=== PATIENT | female | born 1945 | race Caucasian/White ===

== ENCOUNTER → 2017-11-12 | Outpatient (CLI) | payer MEDICARE ==
[2017-11-12 10:11] LABS: ALT 26 U/L (9-52); AST 21 U/L (14-36); Alkaline Phosphatase 48 U/L (38-126); Anion Gap 11 mmol/L; Blood Urea Nitrogen 16 mg/dL (7-17); Calcium 9.3 mg/dL (8.4-10.2); Carbon Dioxide 28 mmol/L (22-30); Chloride 103 mmol/L (98-107); Cholesterol 189 mg/dL (<200); Glucose 141 mg/dL (74-99); HDL Cholesterol 81 mg/dL (40-60); LDL Cholesterol,Calculated 84 mg/dL (0-99); Potassium 3.6 mmol/L (3.5-5.1); Sodium 142 mmol/L (137-145); Total Bilirubin 0.3 mg/dL (0.2-1.3); Total Protein 6.6 g/dL (6.3-8.2); Triglycerides 119 mg/dL (<150)
[2017-11-12 19:30] LABS: Hemoglobin A1C 7.6 % (4.0-6.0)
== END | disposition home or self-care (01) ==
LOC: LABWHC1 09:31
PROVIDERS: ATTEND Internal Medicine Endocrinology, Diabetes & Metabolism
DX: E11.65 Type 2 diabetes mellitus with hyperglycemia (principal); E89.0 Postprocedural hypothyroidism
CPT/HCPCS: 36415; 80053; 80061; 82043; 82570; 83036; 84443

== ENCOUNTER → 2017-12-29 | Outpatient (CLI) | payer MEDICARE ==
--- NOTE | 2018-01-03 12:10 | MM ---
Reason for exam: screening (asymptomatic). Last mammogram was performed 4 years and 2 months ago. History: Patient is postmenopausal. Took estrogen for 3 years 7 months beginning at age 50. Taking unspecified hormones for 6 months beginning at age 61. Physical Findings: A clinical breast exam by your physician is recommended on an annual basis and results should be correlated with mammographic findings. MG 3D Screening Mammo W/Cad Bilateral CC and MLO view(s) were taken. Prior study comparison: November 06, 2013, bilateral MG screening mammo w CAD. December 02, 2011, bilateral digital screening mammo w/CAD. The breast tissue is heterogeneously dense. This may lower the sensitivity of mammography. There is no discrete abnormality. No significant changes when compared with prior studies. ASSESSMENT: Negative, BI-RAD 1 RECOMMENDATION: Routine screening mammogram of both breasts in 1 year.
== END | disposition home or self-care (01) ==
LOC: RADMAMWWP 14:47
PROVIDERS: ATTEND Internal Medicine Critical Care Medicine
DX: Z12.31 Encounter for screening mammogram for malignant neoplasm of breast (principal)
CPT/HCPCS: 77063; 77067

== ENCOUNTER → 2018-12-30 | Outpatient (CLI) | payer MEDICARE ==
--- NOTE | 2019-01-03 09:27 | MM ---
Reason for exam: screening (asymptomatic). Last mammogram was performed 1 year ago. History: Patient is postmenopausal. Took estrogen for 3 years 7 months beginning at age 50. Taking unspecified hormones for 6 months beginning at age 61. Physical Findings: A clinical breast exam by your physician is recommended on an annual basis and results should be correlated with mammographic findings. MG 3D Screening Mammo W/Cad Bilateral CC and MLO view(s) were taken. Prior study comparison: December 29, 2017, bilateral MG 3d screening mammo w/cad. November 06, 2013, bilateral MG screening mammo w CAD. There are scattered fibroglandular densities. No significant changes when compared with prior studies. ASSESSMENT: Negative, BI-RAD 1 RECOMMENDATION: Routine screening mammogram of both breasts in 1 year.
== END | disposition home or self-care (01) ==
LOC: RADMAMWWP 13:18
PROVIDERS: ATTEND Internal Medicine Critical Care Medicine
DX: Z12.31 Encounter for screening mammogram for malignant neoplasm of breast (principal)
CPT/HCPCS: 77063; 77067

== ENCOUNTER → 2019-07-05 | Outpatient (CLI) | payer MEDICARE ==
[2019-07-05 15:57] LABS: African American GFR (CKD) 85.4 (60.0-200.0); Albumin 4.1 g/dL (3.80-4.90); Albumin/Globulin Ratio 1.86 (1.60-3.17); Anion Gap 6.9 mmol/L (4.00-12.00); BUN/Creat Ratio 23.75 Ratio (12.00-20.00); Calcium 9.5 mg/dL (8.7-10.3); Carbon Dioxide 29.1 mmol/L (21.6-31.8); Chol/HDL Ratio 2.71; Globulin 2.2 g/dL (1.6-3.3); LDL Cholesterol,Calculated 97.4 mg/dL (0.0-131.0); Non-African American GFR(CKD) 73.7 (60.0-200.0); Potassium 3.9 mmol/L (3.5-5.5); Total Bilirubin 0.3 mg/dL (0.2-1.2); Total Protein 6.3 g/dL (6.2-8.2); VLDL Calculation 18.6 mg/dL (5.00-40.00)
[2019-07-05 18:12] LABS: Hemoglobin A1C 8.7 % (4.0-6.0)
[2019-07-05 18:50] LABS: Urine Creatinine 79.7 mg/dL
== END ==
LOC: LABWHC1 11:35
PROVIDERS: ATTEND Internal Medicine Endocrinology, Diabetes & Metabolism
DX: E11.65 Type 2 diabetes mellitus with hyperglycemia (principal)
CPT/HCPCS: 36415; 80053; 80061; 82043; 82570; 83036; 84443

== ENCOUNTER 2019-07-17 13:21 | Inpatient (IN) | payer MEDICARE ==
[2019-07-17] MEDS: HEPARIN SOD,PORK IN 0.45% NACL 25,000 UNIT in 0.45% NACL 1 250ML.BAG IV SCH (15:30)
[2019-07-17] MEDS ORDERED: NITROGLYCERIN SL TABS 0.4 MG TAB SUBLINGUAL PRN (16:32)
[2019-07-17] MEDS ORDERED: HEPARIN SODIUM,PORCINE 5,000 UNIT/ML 1 ML VIAL IV PRN (16:36)
[2019-07-17 17:04] LABS: Glucose,Whole Blood 212 mg/dL (75-99)
[2019-07-17] MEDS ORDERED: HEPARIN SOD,PORK IN 0.45% NACL 25,000 UNIT in 0.45% NACL 1 250ML.BAG IV SCH (17:20)
[2019-07-17] MEDS: INSULIN ASPART (NovoLOG) 100 UNIT/ML VIAL SQ SCH ×2 (17:27→21:29)
[2019-07-17 18:29] LABS: INR 0.9 (<1.2); Partial Thromboplastin Time 51.1 sec (22.0-30.0); Prothrombin Time 9.8 sec (9.0-12.0)
[2019-07-17 21:05] LABS: Glucose,Whole Blood 230 mg/dL (75-99)
[2019-07-17] MEDS: INSULIN DETEMIR (LEVEMIR) 100 UNIT/ML SYR SQ SCH (21:29)
[2019-07-17] MEDS: METOPROLOL TARTRATE 25 MG TAB PO SCH (21:29)
[2019-07-17] MEDS: ATORVASTATIN 40 MG TAB PO SCH (21:29)
[2019-07-17] MEDS: MUPIROCIN 2% OINT 22 GM TUBE NASAL SCH (21:30)
[2019-07-18 06:25] LABS: Glucose,Whole Blood 140 mg/dL (75-99)
[2019-07-18] MEDS: INSULIN ASPART (NovoLOG) 100 UNIT/ML VIAL SQ SCH ×4 (06:44→21:23)
[2019-07-18] MEDS: GLIMEPIRIDE 2 MG TAB PO SCH (06:44)
[2019-07-18] MEDS: LEVOTHYROXINE 100 MCG TAB PO SCH (06:44)
[2019-07-18] MEDS: PANTOPRAZOLE 40 MG TABLET PO SCH (06:44)
--- NOTE | 2019-07-18 06:54 | P.HPIM ---
History of Present Illness Pema Portillo 73 y.o.femalewho presented to [facility] on 07/14 with complaint of chest tightness and pain, 7 out of 10 in severity which is been ongoing for the last 5 to 6 weeks. With tightness to her left arm. Serial cardiac enzymes elevated, trending up to 0.353. EKG showing sinus rhythm no ST depression, noQ wave. Chest x-ray no acute process. proBNP 2354. Magnesium critically low at 0.9, replacement given. CBC unremarkable. Patient was started on aspirin,placed on IV heparin, Nitropaste was applied. Vital signs stable. Patient underwent cardiac catheterization on 07/17/2019which showed significant 3 vesseldisease including proximal LAD which is 95% occluded, and midLADlesion also 95% occluded. RCA shows mid lesion of 70 to 80% which is heavily calcified distally to PDA branch.recommendation includes coronary bypass surgery with [place] to LAD.Patient was transferred to [facility] with consult for cardiothoracic surgery, IV heparin will be resumed. Review of Systems CONSTITUTIONAL: No fever, no malaise, no fatigue. HEENT: No recent visual problems or hearing problems. Denied any sore throat. CARDIOVASCULAR: No orthopnea, PND, no palpitations, no syncope. PULMONARY: No shortness of breath, no cough, no hemoptysis. GASTROINTESTINAL: No diarrhea, no nausea, no vomiting, no abdominal pain. Normoactive bowel sounds. NEUROLOGICAL: No headaches, no weakness, no numbness. HEMATOLOGICAL: Denies any bleeding or petechiae. GENITOURINARY: Denies any burning micturition, frequency, or urgency. MUSCULOSKELETAL/RHEUMATOLOGICAL: Denies any joint pain, swelling, or any muscle pain. ENDOCRINE: Denies any polyuria or polydipsia. Past Medical History Past Medical History: Coronary Artery Disease (CAD), Chest Pain / Angina, Diabetes Mellitus, GERD/Reflux, Hyperlipidemia, Hypertension, Osteoarthritis (OA), Thyroid Disorder Additional Past Medical History / Comment(s): diverticulitis, IBS, back fracture, herniated discs, bronchitis History of Any Multi-Drug Resistant Organisms: None Reported Past Surgical History: Cholecystectomy, Orthopedic Surgery Additional Past Surgical History / Comment(s): right hip replacement, rotator cuff, left knee replacement, thyroidectomy, bladder suspension Past Anesthesia/Blood Transfusion Reactions: No Reported Reaction Additional Past Anesthesia/Blood Transfusion Reaction / Comment(s): "slow coming out of it" Past Psychological History: Anxiety, Depression Smoking Status: Former smoker - Past Family History Father Family Medical History: Diabetes Mellitus, Myocardial Infarction ([place]) Additional Family Medical History / Comment(s): heart disease Mother Family Medical History: Myocardial Infarction ([place]) Additional Family Medical History / Comment(s): heart disease Medications and Allergies Home Medications Medication Instructions Recorded Confirmed Type Dicyclomine [Bentyl] 10 mg PO AC-TID 07/17/19 07/17/19 History Insulin NPH Human Isophane 13 units SQ AC-BID 07/17/19 07/17/19 History [NovoLIN N] Insulin NPH Human Isophane See Protocol SQ AC-BID 07/17/19 07/17/19 History [NovoLIN N] Levothyroxine Sodium [Synthroid] 100 mcg PO DAILY 07/17/19 07/17/19 History Lisinopril-Hctz 20-25 mg 1 tab PO DAILY 07/17/19 07/17/19 History [Zestoretic 20-25] Metoprolol Tartrate [Lopressor] 25 mg PO BID 07/17/19 07/17/19 History Omeprazole 20 mg PO DAILY 07/17/19 07/17/19 History Pravastatin Sodium [Pravachol] 80 mg PO DAILY 07/17/19 07/17/19 History Temazepam [Restoril] 15 mg PO HS 07/17/19 07/17/19 History amLODIPine [Norvasc] 5 mg PO DAILY 07/17/19 07/17/19 History Allergies Allergy/AdvReac Type Severity Reaction Status Date / Time No Known Allergies Allergy Verified 07/17/19 15:57 Physical Exam Vitals: Vital Signs Temp Pulse Resp BP Pulse Ox 07/18/19 04:00 98.0 F 70 18 146/76 97 07/18/19 00:00 97.9 F 67 17 144/63 98 07/17/19 20:00 97.7 F 69 18 132/76 96 07/17/19 15:30 97.9 F 65 20 193/82 97 Intake and Output 07/17/19 07/17/19 07/18/19 14:59 22:59 06:59 Intake Total 54 Balance 54 Intake: Intake, IV Titration 54 Amount Heparin Sod,Pork in 0.45% 54 NaCl 25,000 unit In 0.45 % NaCl 1 250ml.bag @ 9 mls/hr IV .Q24H [facility] Rx#: [id number] Other: Voiding Method Toilet Toilet # Voids 1 1 # Bowel Movements 1 Weight 73.936 kg 74.5 kg GENERAL: The patient is alert and oriented x3, not in any acute distress. Well developed, well nourished. HEENT: Pupils are round and equally reacting to light. EOMI. No scleral icterus. No conjunctival pallor. Normocephalic, atraumatic. No pharyngeal erythema. No thyromegaly. CARDIOVASCULAR: S1 and S2 present. No murmurs, rubs, or gallops. PULMONARY: Chest is clear to auscultation, no wheezing or crackles. ABDOMEN: Soft, nontender, nondistended, normoactive bowel sounds. No palpable organomegaly. MUSCULOSKELETAL: No joint swelling or deformity. EXTREMITIES: No cyanosis, clubbing, or pedal edema. NEUROLOGICAL: Gross neurological examination did not reveal any focal deficits. SKIN: No rashes. No petechiae Results Labs: Abnormal Lab Results - Last 24 Hours (Table) 07/17/19 07/17/19 07/17/19 Range/Units 17:02 17:57 21:04 APTT 51.1 H (22.0-30.0) sec POC Glucose (mg/dL) 212 H 230 H (75-99) mg/dL 07/17/19 07/18/19 Range/Units 22:18 06:11 APTT 47.2 H (22.0-30.0) sec POC Glucose (mg/dL) 140 H (75-99) mg/dL Microbiology - Last 24 Hours (Table) 07/17/19 17:35 Nasal Screen MRSA/MSSA - Preliminary Nasal Swab Thrombosis Risk Factor Assmnt - Choose All That Apply Any of the Below Risk Factors Present?: Yes Each Factor Represents 1 point: Obesity (BMI >25) Other Risk Factors: Yes Each Risk Factor Represents 2 Points: Age 61-74 years Thrombosis Risk Factor Assessment Total Risk Factor Score: 3 Thrombosis Risk Factor Assessment Level: Moderate Risk Assessment and Plan Assessment: non-STEMI, status post cardiac cath showing triple vessel coronary artery disease Hypomagnesemia Hypertension Hyperlipidemia Diabetes mellitus Hypothyroidism Gastroesophageal reflux disease Irritable bowel syndrome Anxiety Arthritis Plan: This is a pleasant 73 years old female who presents for severe triple vessel coronary artery disease and she's been evaluated for coronary artery bypass surgery, continue with aspirin, statin, insulin, losartan, metoprolol and heparin drip by side door man recommendation, follow-up recommendation by cardiology and cardiothoracic surgery teams Labs and medication were reviewed.. Continue same treatment. Continue with symptomatic treatment. Resume home medication. Monitor lytes and vitals. DVT and GI prophylaxis. Further recommendations of the clinical course of the patient DVT prophylaxis: heparin GI Prophylaxis: Protonix Prognosis is guarded
[2019-07-18 07:11] LABS: Basophils % (A) 0 %; Eosinophils # (A) 0.1 k/uL (0-0.7); Eosinophils % (A) 2 %; HGB 12.2 gm/dL (11.4-16.0); Lymphocytes % (A) 32 %; MCH 27.9 pg (25.0-35.0); MCV 87.2 fL (80.0-100.0); Mean Platelet Volume 8.1; Monocytes # (A) 0.4 k/uL (0-1.0); Monocytes % (A) 5 %; Neutrophils # (A) 3.7 k/uL (1.3-7.7); Neutrophils % (A) 58 %; Platelet Count 188 k/uL (150-450); RBC 4.36 m/uL (3.80-5.40); WBC 6.4 k/uL (3.8-10.6)
[2019-07-18 07:51] LABS: ALT 16 U/L (4-34); AST 24 U/L (14-36); African American GFR (CKD) >90 (>60 ml/min/1.73 sqM); Albumin 3.1 g/dL (3.5-5.0); Alkaline Phosphatase 47 U/L (38-126); Anion Gap 6 mmol/L; Bilirubin,Unconjugated 0.4 mg/dL (0.0-1.1); Blood Urea Nitrogen 18 mg/dL (7-17); Calcium 8.7 mg/dL (8.4-10.2); Carbon Dioxide 23 mmol/L (22-30); Chloride 109 mmol/L (98-107); Glucose 133 mg/dL (74-99); Magnesium 1.6 mg/dL (1.6-2.3); Non-African American GFR(CKD) 87 (>60 ml/min/1.73 sqM); Potassium 4.2 mmol/L (3.5-5.1); Sodium 138 mmol/L (137-145); Total Bilirubin 0.3 mg/dL (0.2-1.3); Total Protein 5.8 g/dL (6.3-8.2)
[2019-07-18] MEDS: CHOLECALCIFEROL 400 UNIT TAB PO SCH (08:11)
[2019-07-18] MEDS: METOPROLOL TARTRATE 25 MG TAB PO SCH ×2 (08:11→21:22)
[2019-07-18] MEDS: ASPIRIN 81 MG PO SCH (08:11)
[2019-07-18] MEDS: LOSARTAN 50 MG TAB PO SCH (08:11)
[2019-07-18 08:12] LABS: Bilirubin, Delta -0.1 mg/dL (0.0-0.2)
[2019-07-18] MEDS: MUPIROCIN 2% OINT 22 GM TUBE NASAL SCH ×2 (08:40→21:22)
[2019-07-18] MEDS ORDERED: amLODIPine 5 MG TAB PO SCH (09:00)
[2019-07-18 09:13] LABS: T4, Free (Free Thyroxine) 1.58 ng/dL (0.78-2.19)
[2019-07-18 10:13] LABS: Appearance,Urine Clear (Clear); Bilirubin,Urine Negative (Negative); Blood,Urine Negative (Negative); Color,Urine Yellow; Glucose,Urine (UA) Negative (Negative); Ketones,Urine Negative (Negative); Leukocyte Esterase,Urine Negative (Negative); Nitrite,Urine Negative (Negative); Protein,Urine Negative (Negative); Specific Gravity,Urine 1.014 (1.001-1.035); Urobilinogen,Urine <2.0 mg/dL (<2.0)
[2019-07-18 11:42] LABS: Glucose,Whole Blood 208 mg/dL (75-99)
--- NOTE | 2019-07-18 12:54 | P.PN ---
Subjective Progress Note Date: 07/18/19 This is a 73-year-old female who presented to [facility] with chest discomfort, she ruled in for non-Q-wave myocardial infarction. Underwent a cardiac catheterization which revealed triple vessel coronary artery disease including a proximal LAD 95% occluded, mid LAD 95%, RCA mid l esion of 70-80% which is heavily calcified distally to PDA branch. Patient was recommended to undergo coronary artery bypass surgery. Patient was transferred to [facility], cardiothoracic consultation was requested. Patient does have history of hypertension, diabetes, hyperlipidemia, hypothyroidism. The patient was seen and examined this morning, feels well, denies any chest discomfort or breathing problems. She's been up ambulating without any difficulty. Blood pressure 132/70 with a heart rate 60, 96% on room air. White blood cell count 6.4, hemoglobin 12.2, platelet count 188. Sodium 138, potassium 4.2, BUN 18, creatinine 0.6, magnesium 1.6. Objective - Vital Signs Vital signs: Vital Signs Temp 97.8 F 07/18/19 12:00 Pulse 65 07/18/19 12:00 Resp 18 07/18/19 12:00 BP 132/72 07/18/19 12:00 Pulse Ox 96 07/18/19 12:00 Intake & Output 07/17/19 07/18/19 07/18/19 18:59 06:59 18:59 Intake Total 54 120 Balance 54 120 Weight 73.936 kg 74.5 kg Intake: Intake, IV Titration 54 Amount Heparin Sod,Pork in 0.45% 54 NaCl 25,000 unit In 0.45 % NaCl 1 250ml.bag @ 9 mls/hr IV .Q24H [facility] Rx#: [id number] Oral 120 Other: Voiding Method Toilet Toilet Toilet # Voids 1 1 2 # Bowel Movements 1 0 - Exam PHYSICAL EXAMINATION: GENERAL: 73-year-old female in no acute distress at the time of my examination HEENT: Head is atraumatic, normocephalic. Pupils equal, round. Sclera anicteric. Conjunctiva are clear. Mucous membranes of the mouth are moist. Neck is supple. There is no elevated jugular venous pressure. No carotid bruit is heard. HEART EXAMINATION: Heart S1, S2 normal. No murmur or gallop heard. CHEST EXAMINATION: Lungs are clear to auscultation and precussion. No chest wall tenderness is noted on palpation or with deep breathing. ABDOMEN: Soft, nontender. Bowel sounds are heard. No organomegaly noted. EXTREMITIES: 2+ peripheral pulses with no evidence of peripheral edema and no calf tenderness noted. NEUROLOGIC patient is awake, alert and oriented 3 . . - Labs CBC & Chem 7: 07/18/19 06:12 07/18/19 06:12 Labs: Abnormal Lab Results - Last 24 Hours (Table) 07/17/19 07/17/19 07/17/19 Range/Units 17:02 17:57 21:04 APTT 51.1 H (22.0-30.0) sec Chloride (98-107) mmol/L BUN (7-17) mg/dL Glucose (74-99) mg/dL POC Glucose (mg/dL) 212 H 230 H (75-99) mg/dL Delta Bilirubin (0.0-0.2) mg/dL Total Protein (6.3-8.2) g/dL Albumin (3.5-5.0) g/dL TSH (0.465-4.680) mIU/L 07/17/19 07/18/19 07/18/19 Range/Units 22:18 06:11 06:12 APTT 47.2 H (22.0-30.0) sec Chloride 109 H (98-107) mmol/L BUN 18 H (7-17) mg/dL Glucose 133 H (74-99) mg/dL POC Glucose (mg/dL) 140 H (75-99) mg/dL Delta Bilirubin -0.1 L (0.0-0.2) mg/dL Total Protein 5.8 L (6.3-8.2) g/dL Albumin 3.1 L (3.5-5.0) g/dL TSH 0.360 L (0.465-4.680) mIU/L 07/18/19 Range/Units 11:34 APTT (22.0-30.0) sec Chloride (98-107) mmol/L BUN (7-17) mg/dL Glucose (74-99) mg/dL POC Glucose (mg/dL) 208 H (75-99) mg/dL Delta Bilirubin (0.0-0.2) mg/dL Total Protein (6.3-8.2) g/dL Albumin (3.5-5.0) g/dL TSH (0.465-4.680) mIU/L Microbiology - Last 24 Hours (Table) 07/17/19 17:35 Nasal Screen MRSA/MSSA - Preliminary Nasal Swab Assessment and Plan Plan: Assessment and plan #1 non-Q-wave myocardial infarction, status post cardiac catheterization which revealed triple vessel coronary artery disease #2 hypertension #3 diabetes #4 hyperlipidemia #5 hypothyroidism Plan Patient has been seen by cardiothoracic surgery, the plan is to proceed with coronary artery bypass grafting surgery on . We will continue to follow along with you. DNP note has been reviewed, I agree with a documented findings and plan of care. Patient was seen and examined.
--- NOTE | 2019-07-18 13:14 | P.GSCN ---
History of Present Illness Consult date: 07/18/19 Reason for Consult: Coronary artery disease Requesting physician: Kayden Truong History of present illness: This is a 73-year-old female patient who follows on an outpatient basis with Dr. Sheppard as her primary care physician and Dr. BALDO Truong as her health center assistant. She has a previous medical history of hypertension, hyperlipidemia, insulin dependent diabetes mellitus, hypothyroid, anxiety, IBS, diverticulosis, anxiety, GERD, multiple orthopedic surgeries, previous tobacco dependence although she was a social smoker and not a daily smoker, and family history of coronary artery disease. Apparently she has had intermittent chest pain for the last 6 weeks with radiation to her arms and jaw. She presented to [facility] for treatment evaluation. EKG was completed demonstrating sinus rhythm with T-wave inversions in leads V1 through V3. Initial troponin was 0.06 going up to 0.22. BNP was 2354. She was initiated on an heparin drip and taken for cardiac catheterization yesterday which demonstrated severe coronary artery disease with proximal LAD 95% occlusion, mid LAD also 95% occlusion, and mid RCA lesion 70-80%. Due to these findings the patient was transferred to [facility] with consultation placed to Dr. Ruiz from cardiothoracic surgery. Review of Systems - Cardiovascular Reports as per HPI, Reports chest pain Past Medical History Past Medical History: Coronary Artery Disease (CAD), Chest Pain / Angina, Diabetes Mellitus, GERD/Reflux, Hyperlipidemia, Hypertension, Osteoarthritis (OA), Thyroid Disorder Additional Past Medical History / Comment(s): diverticulitis, IBS, back fracture, herniated discs, bronchitis History of Any Multi-Drug Resistant Organisms: None Reported Past Surgical History: Cholecystectomy, Hysterectomy, Orthopedic Surgery, Tonsillectomy Additional Past Surgical History / Comment(s): right hip replacement, rotator cuff, left knee replacement, thyroidectomy, bladder suspension, EGD, colonoscopy Past Anesthesia/Blood Transfusion Reactions: No Reported Reaction Additional Past Anesthesia/Blood Transfusion Reaction / Comm: "slow coming out of it" Past Psychological History: Anxiety, Depression Smoking Status: Former smoker Past Alcohol Use History: None Reported Past Drug Use History: None Reported - Past Family History Father Family Medical History: Diabetes Mellitus, Myocardial Infarction ([place]) Additional Family Medical History / Comment(s): heart disease Mother Family Medical History: Myocardial Infarction ([place]) Additional Family Medical History / Comment(s): heart disease Medications and Allergies Home Medications Medication Instructions Recorded Confirmed Type Dicyclomine [Bentyl] 10 mg PO AC-TID 07/17/19 07/17/19 History Insulin NPH Human Isophane 13 units SQ AC-BID 07/17/19 07/17/19 History [NovoLIN N] Insulin NPH Human Isophane See Protocol SQ AC-BID 07/17/19 07/17/19 History [NovoLIN N] Levothyroxine Sodium [Synthroid] 100 mcg PO DAILY 07/17/19 07/17/19 History Lisinopril-Hctz 20-25 mg 1 tab PO DAILY 07/17/19 07/17/19 History [Zestoretic 20-25] Metoprolol Tartrate [Lopressor] 25 mg PO BID 07/17/19 07/17/19 History Omeprazole 20 mg PO DAILY 07/17/19 07/17/19 History Pravastatin Sodium [Pravachol] 80 mg PO DAILY 07/17/19 07/17/19 History Temazepam [Restoril] 15 mg PO HS 07/17/19 07/17/19 History amLODIPine [Norvasc] 5 mg PO DAILY 07/17/19 07/17/19 History Allergies Allergy/AdvReac Type Severity Reaction Status Date / Time No Known Allergies Allergy Verified 07/17/19 15:57 Surgical - Exam Vital Signs Temp Pulse Resp BP Pulse Ox 97.9 F 65 20 193/82 97 07/17/19 15:30 07/17/19 15:30 07/17/19 15:30 07/17/19 15:30 07/17/19 15:30 - General well developed, well nourished, no distress, no pain, obese - Eyes PERRL, normal ocular movement - ENT no hearing loss - Neck no masses, no bruits, trachea midline - Respiratory Lungs sounds diminished bilaterally. Respirations even, nonlabored. Currently on room air with oxygen saturation 97%. Able to achieve 1500 mL on her incentive spirometry. No clubbing or cyanosis present. - Cardiovascular S1, S2 present. Regular rate and rhythm, sinus rhythm on telemetry. Palpable peripheral pulses bilaterally. No edema present. No calf pain or tenderness noted. - Abdomen Abdomen: soft, non tender, bowel sounds - Genitourinary Deferred - Rectum Deferred - Integumentary no rash, no growths, no abnormal pigmentation - Neurologic normal coordination, normal sensation - Musculoskeletal normal posture - Psychiatric oriented to time, oriented to person, oriented to place, speech is normal, memory intact Results - Labs 07/18/19 06:12 07/18/19 06:12 Abnormal Lab Results - Last 24 Hours (Table) 07/17/19 07/17/19 07/17/19 Range/Units 17:02 17:57 21:04 APTT 51.1 H (22.0-30.0) sec Chloride (98-107) mmol/L BUN (7-17) mg/dL Glucose (74-99) mg/dL POC Glucose (mg/dL) 212 H 230 H (75-99) mg/dL Delta Bilirubin (0.0-0.2) mg/dL Total Protein (6.3-8.2) g/dL Albumin (3.5-5.0) g/dL TSH (0.465-4.680) mIU/L 07/17/19 07/18/19 07/18/19 Range/Units 22:18 06:11 06:12 APTT 47.2 H (22.0-30.0) sec Chloride 109 H (98-107) mmol/L BUN 18 H (7-17) mg/dL Glucose 133 H (74-99) mg/dL POC Glucose (mg/dL) 140 H (75-99) mg/dL Delta Bilirubin -0.1 L (0.0-0.2) mg/dL Total Protein 5.8 L (6.3-8.2) g/dL Albumin 3.1 L (3.5-5.0) g/dL TSH 0.360 L (0.465-4.680) mIU/L 07/18/19 Range/Units 11:34 APTT (22.0-30.0) sec Chloride (98-107) mmol/L BUN (7-17) mg/dL Glucose (74-99) mg/dL POC Glucose (mg/dL) 208 H (75-99) mg/dL Delta Bilirubin (0.0-0.2) mg/dL Total Protein (6.3-8.2) g/dL Albumin (3.5-5.0) g/dL TSH (0.465-4.680) mIU/L Microbiology - Last 24 Hours (Table) 07/17/19 17:35 Nasal Screen MRSA/MSSA - Preliminary Nasal Swab Diabetes panel 07/18/19 Range/Units 06:12 Sodium 138 (137-145) mmol/L Potassium 4.2 (3.5-5.1) mmol/L Chloride 109 H (98-107) mmol/L Carbon Dioxide 23 (22-30) mmol/L BUN 18 H (7-17) mg/dL Creatinine 0.69 (0.52-1.04) mg/dL Glucose 133 H (74-99) mg/dL Calcium 8.7 (8.4-10.2) mg/dL AST 24 (14-36) U/L ALT 16 (4-34) U/L Alkaline Phosphatase 47 (38-126) U/L Total Protein 5.8 L (6.3-8.2) g/dL Albumin 3.1 L (3.5-5.0) g/dL Thyroid panel 07/18/19 Range/Units 06:12 TSH 0.360 L (0.465-4.680) mIU/L Calcium panel 07/18/19 Range/Units 06:12 Calcium 8.7 (8.4-10.2) mg/dL Albumin 3.1 L (3.5-5.0) g/dL Pituitary panel 07/18/19 Range/Units 06:12 Sodium 138 (137-145) mmol/L Potassium 4.2 (3.5-5.1) mmol/L Chloride 109 H (98-107) mmol/L Carbon Dioxide 23 (22-30) mmol/L BUN 18 H (7-17) mg/dL Creatinine 0.69 (0.52-1.04) mg/dL Glucose 133 H (74-99) mg/dL Calcium 8.7 (8.4-10.2) mg/dL TSH 0.360 L (0.465-4.680) mIU/L Adrenal panel 07/18/19 Range/Units 06:12 Sodium 138 (137-145) mmol/L Potassium 4.2 (3.5-5.1) mmol/L Chloride 109 H (98-107) mmol/L Carbon Dioxide 23 (22-30) mmol/L BUN 18 H (7-17) mg/dL Creatinine 0.69 (0.52-1.04) mg/dL Glucose 133 H (74-99) mg/dL Calcium 8.7 (8.4-10.2) mg/dL Total Bilirubin 0.3 (0.2-1.3) mg/dL AST 24 (14-36) U/L ALT 16 (4-34) U/L Alkaline Phosphatase 47 (38-126) U/L Total Protein 5.8 L (6.3-8.2) g/dL Albumin 3.1 L (3.5-5.0) g/dL - Imaging Chest x-ray: pending EKG: pending Additional studies: Heart catheterization films reviewed with Dr. Ruiz Assessment and Plan Assessment: 1. Severe coronary artery disease 2. Hypertension 3. Hyperlipidemia 4. Hypothyroidism 5. Insulin dependent diabetes mellitus 6. Anxiety 7. IBS 8. Diverticulosis 9. Anxiety/depression 10. GERD 11. Previous social smoker 12. Family history of heart disease Plan: The patient was seen and examined at the bedside with Dr. Ruiz yesterday as well as again this morning. Charts as diagnostics were reviewed. We did upload the heart catheterization films into our system and reviewed them. We have the patient coronary artery bypass graft surgery. The usual. Upper course was discussed in detail the patient and her family, all risks and benefits were reviewed, and the patient did consent to surgery. We initiated preoperative testing. Recommend continuing aspirin, statin, beta gonzález therapy. Continue IV heparin to be shut off 2 hours prior to surgery. We will complete a 5 m walk test and calculated STS risk score and discussed this with the patient and her family. At this time her plan is for coronary artery bypass surgery with left internal mammary artery and endoscopic vein harvesting by Dr. Blanchard on , 07/20/2019. Continued medical treatment of other comorbidities per primary care service. Thank you Dr. Truong for this consult. We look forward to working with you in the care of your patient. Time with Patient: Greater than 30
[2019-07-18 15:00] LABS: Hemoglobin A1C 8.7 % (4.0-6.0)
--- NOTE | 2019-07-18 16:03 | XR ---
EXAMINATION TYPE: XR chest 2V DATE OF EXAM: 07/18/2019 COMPARISON: None INDICATION: Preop CABG TECHNIQUE: Frontal and lateral views of the chest are obtained. FINDINGS: The heart size is normal. The pulmonary vasculature is normal. The lungs are clear. There is some focal eventration of the right diaphragm. IMPRESSION: 1. No acute pulmonary process.
[2019-07-18 16:07] LABS: Hepatitis A Antibody IgM Non-Reactive (Non-Reactive); Hepatitis B Core IgM Non-Reactive (Non-Reactive); Hepatitis B Surface Antigen Non-Reactive (Non-Reactive); Hepatitis C IgG Antibody Non-Reactive (Non-Reactive)
[2019-07-18 16:37] LABS: Glucose,Whole Blood 269 mg/dL (75-99)
[2019-07-18] MEDS: HEPARIN SOD,PORK IN 0.45% NACL 25,000 UNIT in 0.45% NACL 1 250ML.BAG IV SCH (16:49)
--- NOTE | 2019-07-18 18:01 | ECHOF ---
Referral Reason:eval valves, EF for cabg MEASUREMENTS -------- HEIGHT: 157.5 cm WEIGHT: 74.4 kg BP: 146/76 RVIDd: 1.6 cm (< 3.3) IVSd: 1.4 cm (0.6 - 1.1) LVIDd: 3.3 cm (3.9 - 5.3) LVPWd: 1.5 cm (0.6 - 1.1) IVSs: 1.9 cm LVIDs: 2.2 cm LVPWs: 1.7 cm LAESV Index (A-L): 36.51 ml/m Ao Diam: 2.8 cm (2.0 - 3.7) AV Cusp: 1.6 cm (1.5 - 2.6) LA Diam: 3.6 cm (2.7 - 3.8) MV EXCURSION: 12.755 mm (> 18.000) MV EF SLOPE: 61 mm/s (70 - 150) EPSS: 0.6 cm MV E Nik: 1.00 m/s MV DecT: 204 ms MV A Nik: 0.78 m/s MV E/A Ratio: 1.28 RAP: 5.00 mmHg RVSP: 11.31 mmHg FINDINGS -------- Sinus rhythm. This was a technically good study. The left ventricular size is normal. There is moderate concentric left ventricular hypertrophy. O verall left ventricular systolic function is normal with, an EF between 55 - 60 %. Increased LAP Gr hammad 2 Diastolic Dysfunction. The right ventricle is normal in size. LA is moderately dilated 34-39 ml/m2 The right atrial size is normal. The aortic valve is trileaflet and appears structurally normal. The mitral valve is normal. Mild mitral regurgitation is present. The tricuspid valve appears structurally normal. Mild tricuspid regurgitation present. Right vent ricular systolic pressure is normal at < 35 mmHg. There is no pulmonic regurgitation present. The aortic root size is normal. Normal inferior vena cava with normal inspiratory collapse consistent with estimated right atrial pre ssure of 5 mmHg. There is no pericardial effusion. CONCLUSIONS -------- 1. Sinus rhythm. 2. This was a technically good study. 3. The left ventricular size is normal. 4. There is moderate concentric left ventricular hypertrophy. 5. Overall left ventricular systolic function is normal with, an EF between 55 - 60 %. 6. Increased LAP Grade 2 Diastolic Dysfunction. 7. The right ventricle is normal in size. 8. LA is moderately dilated 34-39 ml/m2 9. The right atrial size is normal. 10. The aortic valve is trileaflet and appears structurally normal. 11. The mitral valve is normal. 12. Mild mitral regurgitation is present. 13. The tricuspid valve appears structurally normal. 14. Mild tricuspid regurgitation present. 15. Right ventricular systolic pressure is normal at < 35 mmHg. 16. There is no pulmonic regurgitation present. 17. The aortic root size is normal. 18. Normal inferior vena cava with normal inspiratory collapse consistent with estimated right atrial pressure of 5 mmHg. 19. There is no pericardial effusion. DENTAL ASSISTANT TEACHER: Teetee Santos RDCS
--- NOTE | 2019-07-18 19:00 | CONS ---
CONSULTATION PULMONARY/CRITICAL CARE CONSULTATION: DATE OF SERVICE: 07/18/2019 This is a 73-year-old female who presented to the [facility] on July 14 with complaints of chest tightness and pain. It was graded to be 7/10 on the severity scale. The pain apparently had been going on for about 5 or 6 weeks prior to admission. In addition, she had tightness to her left arm. Her serial cardiac enzymes were elevated, trending up to 0.353. EKG showed sinus rhythm, no ST depression, no Q- wave. Chest x-ray showed no acute process. Her N-terminal proBNP was 2354. Her magnesium was low. CBC was normal. Anyway, she was started on aspirin, placed on IV heparin, and nitro paste was applied. She went to the cardiac catheterization laboratory on July 16, which showed significant three-vessel disease, including a proximal LAD lesion which is 95% occluded and a mid LAD lesion, also 95% occluded. Her right coronary artery showed mid lesion of 70% to 80% which is heavily calcified distal to the PDA branch, and bypass grafting was recommended by the director of customer service. She was transferred over from [facility] on July 16 to [facility]. She will have surgery this , which will be July 19. Currently the patient is resting comfortably in bed. She does see Dr. Sheppard in our office as a primary care provider. It was Dr. Sheppard who actually was taking care of her over at [facility]. PAST MEDICAL HISTORY: Positive for CAD, angina pectoris, diabetes mellitus, GERD, hyperlipidemia, hypertension, DJD and hypothyroidism. She also has a history of diverticular disease, irritable bowel syndrome, lumbar fracture, herniated disc and bronchitis. SURGICAL HISTORY: Includes among other things, cholecystectomy, right hip replacement, rotator cuff surgery, left knee replacement, thyroidectomy and bladder suspension. SOCIAL HISTORY: Positive for previous tobacco use. She does not use any alcohol or illicit drugs. FAMILY HISTORY: Positive for father with diabetes mellitus and myocardial infarction and mother with a previous history of myocardial infarction. HOME MEDICATIONS: Include Bentyl, insulin, levothyroxine, lisinopril, metoprolol, omeprazole, pravastatin, Restoril and amlodipine. ALLERGIES: DENIED. REVIEW OF SYSTEMS: CONSTITUTIONAL: Negative. NEUROLOGIC: Negative. HEENT: Negative. CARDIOVASCULAR: Chest pain. PULMONARY: Negative. GI: Negative. : Negative. RHEUMATOLOGIC: Negative. IMMUNOLOGIC: Negative. ENDOCRINOLOGIC: Negative. PHYSICAL EXAMINATION: VITAL SIGNS: Current vital signs are reviewed. Temperature is 97.8, heart rate 65, respiratory rate 18, blood pressure 132/72, mean 92, room-air saturation 96%. GENERAL APPEARANCE: She appears in no acute distress. HEENT: HEENT examination is grossly unremarkable. Mucous membranes are moist. No oral lesions. NECK: Supple. Full range of motion. No adenopathy or thyromegaly. Neck veins are flat. CARDIOVASCULAR: Cardiovascular examination reveals regular rhythm and rate. S1, S2 normal. No S3, S4 or murmur. LUNGS: Lungs reveal clear breath sounds. No wheezes, rhonchi or crackles. ABDOMEN: Soft. Bowel sounds are heard. EXTREMITIES: Intact. No cyanosis, clubbing or edema. SKIN: Without rash. NEUROLOGIC: Neurologic examination is brief but nonfocal. The patient has not had a chest x-ray here. She did have labs here today. White count 6.4, hemoglobin 12.2, hematocrit 38, platelet count 188,000. PTT is 47.2. Sodium and potassium normal. Chloride 109. CO2 23. Anion gap 6. BUN and creatinine were 18 and 0.69. The rest of the labs look okay. TSH is 0.360. Urine is negative. CURRENT MEDICATIONS: Current medications are reviewed. She is currently on amlodipine, aspirin, Lipitor, vitamin D2, glimepiride, IV heparin, insulin, levothyroxine, Cozaar, metoprolol, bacitracin ointment, sublingual nitroglycerin and Protonix. ASSESSMENT: 1. Severe coronary artery disease with anticipated bypass grafting on July 19. 2. [id number]-elevation myocardial infarction. 3. Hypertension. 4. Hyperlipidemia. 5. Diabetes mellitus. 6. Hypothyroidism. 7. Gastroesophageal reflux disease. 8. Irritable bowel syndrome. 9. Anxiety. 10.Degenerative joint disease. PLAN: The patient is all set for surgery. I did look at her pulmonary function tests. She should do fine. Additional recommendations and suggestions are forthcoming. Postoperatively she will be on the ventilator. Our goal will be to be able to get her extubated within 6 hours after leaving the operating room. The patient will also be placed on updrafts at that time. We will also recommend deep breathing, coughing, clearing of secretions and hourly use of the incentive spirometer. MMODL / IJN: [id number] /
[2019-07-18 21:08] LABS: Glucose,Whole Blood 271 mg/dL (75-99)
[2019-07-18] MEDS: INSULIN DETEMIR (LEVEMIR) 100 UNIT/ML SYR SQ SCH (21:22)
[2019-07-18] MEDS: ATORVASTATIN 40 MG TAB PO SCH (21:23)
[2019-07-18] MEDS ORDERED: amLODIPine 5 MG TAB PO STA (22:45)
[2019-07-19 06:04] LABS: Basophils # (A) 0.1 k/uL (0-0.2); Basophils % (A) 1 %; Eosinophils # (A) 0.2 k/uL (0-0.7); Eosinophils % (A) 3 %; HCT 38.7 % (34.0-46.0); HGB 12.3 gm/dL (11.4-16.0); Lymphocytes # (A) 1.8 k/uL (1.0-4.8); Lymphocytes % (A) 32 %; MCH 28.2 pg (25.0-35.0); MCHC 31.7 g/dL (31.0-37.0); Mean Platelet Volume 8.5; Monocytes # (A) 0.4 k/uL (0-1.0); Monocytes % (A) 7 %; Neutrophils # (A) 3.1 k/uL (1.3-7.7); Neutrophils % (A) 55 %; Platelet Count 177 k/uL (150-450); RBC 4.35 m/uL (3.80-5.40); RDW 13.9 % (11.5-15.5); WBC 5.7 k/uL (3.8-10.6)
[2019-07-19 06:15] LABS: Glucose,Whole Blood 235 mg/dL (75-99)
[2019-07-19] MEDS: PANTOPRAZOLE 40 MG TABLET PO SCH (06:24)
[2019-07-19] MEDS: INSULIN ASPART (NovoLOG) 100 UNIT/ML VIAL SQ SCH ×4 (06:24→22:18)
[2019-07-19] MEDS: LEVOTHYROXINE 100 MCG TAB PO SCH (06:24)
[2019-07-19] MEDS: GLIMEPIRIDE 2 MG TAB PO SCH (06:24)
[2019-07-19 06:42] LABS: African American GFR (CKD) >90 (>60 ml/min/1.73 sqM); Anion Gap 2 mmol/L; Blood Urea Nitrogen 17 mg/dL (7-17); Calcium 8.8 mg/dL (8.4-10.2); Carbon Dioxide 24 mmol/L (22-30); Chloride 110 mmol/L (98-107); Glucose 255 mg/dL (74-99); Magnesium 1.4 mg/dL (1.6-2.3); Non-African American GFR(CKD) >90 (>60 ml/min/1.73 sqM); Potassium 4.5 mmol/L (3.5-5.1); Sodium 136 mmol/L (137-145)
[2019-07-19] MEDS: ASPIRIN 81 MG PO SCH (08:15)
[2019-07-19] MEDS: LOSARTAN 50 MG TAB PO SCH (08:16)
[2019-07-19] MEDS: CHOLECALCIFEROL 400 UNIT TAB PO SCH (08:16)
[2019-07-19] MEDS: MUPIROCIN 2% OINT 22 GM TUBE NASAL SCH (08:16)
[2019-07-19] MEDS: MAGNESIUM SULFATE-D5W PMX 1 GM in DEXTROSE/WATER 1 100ML.BAG IVPB SCH ×2 (08:19→12:05)
[2019-07-19] MEDS ORDERED: amLODIPine 10 MG TAB PO SCH (09:00)
--- NOTE | 2019-07-19 10:09 | P.VSCSTY ---
Greater Saphenous Vein Mapping This is bilateral lower extremity greater saphenous vein mapping. Date of service: 07/18/2019 Vein quality and ultrasound appearance: We see no endoluminal thrombus or wall changes. Vein size groin right : 9.9 x 8.8 groin left: 5.8 x 6.2 High thigh right: 3.9 x 4.1 high thigh left: 3.4 x 3.6 Mid thigh right: 3.4 x 3.9 mid thigh left: 3.7 x 3.7 Above-knee right: 3.4 x 4.1 above- knee left: 3.2 x 2.9 Below knee right: 2.9 x 3.6 below-knee left: 2.1 x 2.7 Mid calf right: 3.2 x 3.5 mid calf left: 1.9 x 2.2 Ankle right: 3.1 x 2.7 ankle left: 2.4 x 2.9 Impression: Usable greater saphenous vein through most of right leg and above the knee on the left. Right lower leg probably a bit small for use as conduit..
[2019-07-19] MEDS ORDERED: Magnesium Replacement Protocol 1 EACH MISC MISCELLANE PRN (10:13)
[2019-07-19] MEDS ORDERED: Potassium Replacement Protocol 1 EACH MISC MISCELLANE PRN (10:13)
--- NOTE | 2019-07-19 10:14 | P.PN ---
Subjective Pema Portillo 73 y.o.femalewho presented to [facility] on 07/14 with complaint of chest tightness and pain, 7 out of 10 in severity which is been ongoing for the last 5 to 6 weeks. With tightness to her left arm. Serial cardiac enzymes elevated, trending up to 0.353. EKG showing sinus rhythm no ST depression, noQ wave. Chest x-ray no acute process. proBNP 2354. Magnesium critically low at 0.9, replacement given. CBC unremarkable. Patient was started on aspirin,placed on IV heparin, Nitropaste was applied. Vital signs stable. Patient underwent cardiac catheterization on 07/17/2019which showed significant 3 vesseldisease including proximal LAD which is 95% occluded, and midLADlesion also 95% occluded. RCA shows mid lesion of 70 to 80% which is heavily calcified distally to PDA branch.recommendation includes coronary bypass surgery with [place] to LAD.Patient was transferred to [facility] with consult for cardiothoracic surgery, IV heparin will be resumed. 07/19/2019 Patient lying in bed, comfortable not in distress, no chest pain or dyspnea. She remains on heparin drip and other cardiac medication Hemodynamically stable, labs are unremarkable CBC with normal WBC, sodium 136, creatinine 0.6, glucose 271-235, magnesium low at 1.4 Discussed the case with cardiology and cardiothoracic surgery, planned for cardiac surgery on 07/19 Review of systems CONSTITUTIONAL: No fever, no malaise, no fatigue. HEENT: No recent visual problems or hearing problems. Denied any sore throat. CARDIOVASCULAR: No orthopnea, PND, no palpitations, no syncope. PULMONARY: No shortness of breath, no cough, no hemoptysis. GASTROINTESTINAL: No diarrhea, no nausea, no vomiting, no abdominal pain. Normoactive bowel sounds. NEUROLOGICAL: No headaches, no weakness, no numbness. HEMATOLOGICAL: Denies any bleeding or petechiae. GENITOURINARY: Denies any burning micturition, frequency, or urgency. MUSCULOSKELETAL/RHEUMATOLOGICAL: Denies any joint pain, swelling, or any muscle pain. ENDOCRINE: Denies any polyuria or polydipsia. Active Medications Generic Name Dose Route Start Last Admin Trade Name Freq PRN Reason Stop Dose Admin Amlodipine Besylate 10 mg 07/19/19 09:00 07/19/19 08:15 Norvasc PO 10 mg DAILY SALLY Administration Aspirin 81 mg 07/18/19 09:00 07/19/19 08:15 Aspirin PO 81 mg DAILY SALLY Administration Atorvastatin Calcium 40 mg 07/17/19 21:00 07/18/19 21:23 Lipitor PO 40 mg HS SALLY Administration Cholecalciferol 2,000 unit 07/18/19 09:00 07/19/19 08:16 Vitamin D3 PO 2,000 unit DAILY SALLY Administration Glimepiride 2 mg 07/18/19 07:30 07/19/19 06:24 Amaryl PO 2 mg W/BRKFST SALLY Administration Heparin Sodium (Porcine) 0 unit 07/17/19 16:36 Heparin IV PER PROTOCOL PRN Low PTT Protocol Heparin Sodium/Sodium Chloride 250 mls @ 8.872 mls/hr 07/17/19 16:45 07/19/19 06:23 25,000 unit/ Sodium Chloride IV 12.17 units/kg/hr .Q24H SALLY 9 mls/hr Titration Protocol 12 UNITS/KG/HR Insulin Aspart 0 unit 07/17/19 17:30 07/19/19 06:24 Novolog SQ 3 unit ACHS SALLY Administration Protocol Insulin Detemir 10 unit 07/17/19 21:00 07/18/19 21:22 Levemir SQ 10 unit HS SALLY Administration Levothyroxine Sodium 100 mcg 07/18/19 06:30 07/19/19 06:24 Synthroid PO 100 mcg DAILY@0630 SALLY Administration Losartan Potassium 50 mg 07/18/19 09:00 07/19/19 08:16 Cozaar PO 50 mg DAILY SALLY Administration Metoprolol Tartrate 25 mg 07/17/19 21:00 07/18/19 21:22 Lopressor PO 25 mg BID SALLY Administration Mupirocin 1 applic 07/17/19 21:00 07/19/19 08:16 Bactroban Oint NASAL 1 applic BID SALLY Administration Nitroglycerin 0.4 mg 07/17/19 16:32 Nitrostat SUBLINGUAL Q5M PRN Chest Pain Pantoprazole Sodium 40 mg 07/18/19 07:30 07/19/19 06:24 Protonix PO 40 mg AC-BRKFST SALLY Administration Objective - Vital Signs Vital signs: Vital Signs Temp 97.8 F 07/19/19 08:00 Pulse 72 03/04/20 08:00 Resp 16 07/19/19 08:00 BP 154/70 07/19/19 08:00 Pulse Ox 95 07/19/19 08:00 Intake & Output 07/18/19 07/19/19 07/19/19 18:59 06:59 18:59 Intake Total 827.85 122.1 120 Balance 827.85 122.1 120 Weight 76.2 kg Intake: Intake, IV Titration 227.85 122.1 Amount Heparin Sod,Pork in 0.45% 227.85 122.1 NaCl 25,000 unit In 0.45 % NaCl 1 250ml.bag @ 12 UNITS/KG/HR 8.872 mls/hr IV .Q24H SALLY Rx#: [id number] Oral 600 120 Other: Voiding Method Toilet Toilet # Voids 1 1 # Bowel Movements 0 - Exam GENERAL: The patient is alert and oriented x3, not in any acute distress. Well developed, well nourished. HEENT: Pupils are round and equally reacting to light. EOMI. No scleral icterus. No conjunctival pallor. Normocephalic, atraumatic. No pharyngeal erythema. No thyromegaly. CARDIOVASCULAR: S1 and S2 present. No murmurs, rubs, or gallops. PULMONARY: Chest is clear to auscultation, no wheezing or crackles. ABDOMEN: Soft, nontender, nondistended, normoactive bowel sounds. No palpable organomegaly. MUSCULOSKELETAL: No joint swelling or deformity. EXTREMITIES: No cyanosis, clubbing, or pedal edema. NEUROLOGICAL: Gross neurological examination did not reveal any focal deficits. SKIN: No rashes. No petechiae - Labs CBC & Chem 7: 07/19/19 05:29 07/19/19 05:29 Labs: Abnormal Lab Results - Last 24 Hours (Table) 07/18/19 07/18/19 07/18/19 Range/Units 06:12 11:34 16:34 APTT (22.0-30.0) sec Sodium (137-145) mmol/L Chloride (98-107) mmol/L Glucose (74-99) mg/dL POC Glucose (mg/dL) 208 H 269 H (75-99) mg/dL Hemoglobin A1c 8.7 H (4.0-6.0) % Magnesium (1.6-2.3) mg/dL 07/18/19 07/19/19 07/19/19 Range/Units 21:07 05:29 05:29 APTT 59.2 H (22.0-30.0) sec Sodium 136 L (137-145) mmol/L Chloride 110 H (98-107) mmol/L Glucose 255 H (74-99) mg/dL POC Glucose (mg/dL) 271 H (75-99) mg/dL Hemoglobin A1c (4.0-6.0) % Magnesium 1.4 L (1.6-2.3) mg/dL 07/19/19 Range/Units 06:01 APTT (22.0-30.0) sec Sodium (137-145) mmol/L Chloride (98-107) mmol/L Glucose (74-99) mg/dL POC Glucose (mg/dL) 235 H (75-99) mg/dL Hemoglobin A1c (4.0-6.0) % Magnesium (1.6-2.3) mg/dL Microbiology - Last 24 Hours (Table) 07/17/19 17:35 Nasal Screen MRSA/MSSA - Preliminary Nasal Swab Assessment and Plan Assessment: non-STEMI, status post cardiac cath showing triple vessel coronary artery disease Hypomagnesemia Hypertension Hyperlipidemia Diabetes mellitus Hypothyroidism Gastroesophageal reflux disease Irritable bowel syndrome Anxiety Arthritis Plan: This is a pleasant 73 years old female who presents for severe triple vessel coronary artery disease and she's been evaluated for coronary artery bypass surgery, continue with aspirin, statin, insulin, losartan, metoprolol and heparin drip by tonger recommendation, follow-up recommendation by cardiology and cardiothoracic surgery and pulmonary teams Labs and medication were reviewed.. Continue same treatment. Continue with symptomatic treatment. Resume home medication. Monitor lytes and vitals. DVT and GI prophylaxis. Further recommendations of the clinical course of the patient DVT prophylaxis: heparin GI Prophylaxis: Protonix Prognosis is guarded
[2019-07-19] MEDS ORDERED: MD COMMUNICATION TO PHARMACY 1 EACH MISC PO ONE ×3 (10:35)
--- NOTE | 2019-07-19 10:59 | P.PN ---
Subjective Progress Note Date: 07/19/19 Principal diagnosis: Coronary artery disease, non-STEMI this admission. Previous medical history of hypertension, hyperlipidemia, insulin dependent diabetes mellitus with preopera tive hemoglobin A1c 8.7%, severe lung disease with preoperative FEV1 41% of predicted hypothyroidism, anxiety, IBS, diverticulosis, GERD, previous social tobacco use, and family history of coronary artery disease The patient is currently ambulating in the room without difficulty. Denies any chest pain or shortness of breath. IV heparin currently infusing. Reinforced preoperative teaching, no new questions at this time. No new concerns. Objective - Vital Signs Vital signs: Vital Signs Temp 97.8 F 07/19/19 08:00 Pulse 72 07/19/19 08:00 Resp 16 07/19/19 08:00 BP 154/70 07/19/19 08:00 Pulse Ox 95 07/19/19 08:00 Intake & Output 07/18/19 07/19/19 07/19/19 18:59 06:59 18:59 Intake Total 827.85 122.1 120 Balance 827.85 122.1 120 Weight 76.2 kg Intake: Intake, IV Titration 227.85 122.1 Amount Heparin Sod,Pork in 0.45% 227.85 122.1 NaCl 25,000 unit In 0.45 % NaCl 1 250ml.bag @ 12 UNITS/KG/HR 8.872 mls/hr IV .Q24H [facility] Rx#: [id number] Oral 600 120 Other: Voiding Method Toilet Toilet Toilet # Voids 1 1 # Bowel Movements 0 - Constitutional General appearance: Present: cooperative, no acute distress, obese - Respiratory Details: Lungs sounds diminished bilaterally. Respirations even, nonlabored. Currently on room air with oxygen saturation 95%. Able to achieve 1250 mL on her incentive spirometry. - Cardiovascular Details: S1, S2 present. Regular rate and rhythm, sinus rhythm on telemetry. Palpable peripheral pulses bilaterally. No edema present. No calf pain or tenderness noted. - Gastrointestinal Gastrointestinal Comment(s): Abdomen soft, nontender, nondistended. Active bowel sounds present 4 quadrants. Tolerating diet. - Genitourinary Genitourinary Comment(s): Continues to void - Integumentary Integumentary Comment(s): Skin is warm and dry with evidence of good perfusion - Neurologic Neurologic: Present: CNII-XII intact - Musculoskeletal Musculoskeletal: Present: gait normal, strength equal bilaterally - Psychiatric Psychiatric: Present: A&O x's 3, appropriate affect, intact judgment & insight - Allied health notes Allied health notes reviewed: nursing - Labs CBC & Chem 7: 07/19/19 05:29 07/19/19 05:29 Labs: Abnormal Lab Results - Last 24 Hours (Table) 07/18/19 07/18/19 07/18/19 Range/Units 06:12 11:34 16:34 APTT (22.0-30.0) sec Sodium (137-145) mmol/L Chloride (98-107) mmol/L Glucose (74-99) mg/dL POC Glucose (mg/dL) 208 H 269 H (75-99) mg/dL Hemoglobin A1c 8.7 H (4.0-6.0) % Magnesium (1.6-2.3) mg/dL 07/18/19 07/19/19 07/19/19 Range/Units 21:07 05:29 05:29 APTT 59.2 H (22.0-30.0) sec Sodium 136 L (137-145) mmol/L Chloride 110 H (98-107) mmol/L Glucose 255 H (74-99) mg/dL POC Glucose (mg/dL) 271 H (75-99) mg/dL Hemoglobin A1c (4.0-6.0) % Magnesium 1.4 L (1.6-2.3) mg/dL 07/19/19 Range/Units 06:01 APTT (22.0-30.0) sec Sodium (137-145) mmol/L Chloride (98-107) mmol/L Glucose (74-99) mg/dL POC Glucose (mg/dL) 235 H (75-99) mg/dL Hemoglobin A1c (4.0-6.0) % Magnesium (1.6-2.3) mg/dL Assessment and Plan Assessment: 1. Severe coronary artery disease, non-STEMI this admission 2. Hypertension 3. Hyperlipidemia 4. Hypothyroidism 5. Insulin dependent diabetes mellitus with preoperative hemoglobin A1c 8.7% 6. Severe lung disease with preoperative FEV1 41% protected 7. Anxiety 8. IBS, diverticulosis 9. Anxiety/depression 10. GERD 11. Previous social smoker 12. Family history of heart disease Plan: 1. Continue to maximize medical therapy with aspirin, statin, beta gonzález therapy. Continue IV heparin, to be shut off 2 hours prior to surgery 2. Encourage incentive spirometry use 3. Encourage increased activity 4. Preoperative teaching reinforced with patient and daughter at bedside. All questions answered 5. Our plan is for coronary artery bypass surgery with left internal mammary artery and endoscopic vein harvesting by Dr. Blanchard tomorrow 07/20/2019. Dr. Blanchard will meet with patient today. 6. Continue medical management of other comorbidities per primary care service 7. More recommendations to follow Time with Patient: Greater than 30
--- NOTE | 2019-07-19 11:26 | P.PN ---
Subjective Progress Note Date: 07/19/19 Principal diagnosis: Severe coronary artery disease with anticipated bypass grafting on 07/20/2019, non-ST elevated myocardial infarction On 07/19/2019 patient seen in follow-up on selective care unit, she is awake and alert, oriented 3, in no acute distress, no complaints of chest pain, no complaints of difficulty breathing, and a pulse ox is 95%, hemodynamically stable, remains on heparin infusion, no acute events overnight, his labs haven't reviewed, CBC is all within normal limits, sodium is 136, potassium is 4.5, chloride is 110, the rest of the electrolytes and renal profile were within normal limits. The same was 1.4, will replace per protocol. She is tolerating ambulation. Objective - Vital Signs Vital signs: Vital Signs Temp 97.8 F 07/19/19 08:00 Pulse 72 07/19/19 08:00 Resp 16 07/19/19 08:00 BP 154/70 07/19/19 08:00 Pulse Ox 95 07/19/19 08:00 Intake & Output 07/18/19 07/19/19 07/19/19 18:59 06:59 18:59 Intake Total 827.85 122.1 120 Balance 827.85 122.1 120 Weight 76.2 kg Intake: Intake, IV Titration 227.85 122.1 Amount Heparin Sod,Pork in 0.45% 227.85 122.1 NaCl 25,000 unit In 0.45 % NaCl 1 250ml.bag @ 12 UNITS/KG/HR 8.872 mls/hr IV .Q24H [facility] Rx#: [id number] Oral 600 120 Other: Voiding Method Toilet Toilet Toilet # Voids 1 1 # Bowel Movements 0 - Exam GENERAL EXAM: Alert, very pleasant, 73-year-old white female, on room air, with pulse ox of 95% comfortable in no apparent distress. HEAD: Normocephalic/atraumatic. EYES: Normal reaction of pupils, equal size. Conjunctiva pink, sclera white. NOSE: Clear with pink turbinates. THROAT: No erythema or exudates. NECK: No masses, no JVD, no thyroid enlargement, no adenopathy. CHEST: No chest wall deformity. Symmetrical expansion. LUNGS: Equal air entry with no wheezes, or crackles CVS: Regular rate and rhythm, normal S1 and S2, no gallops, no murmurs, no rubs ABDOMEN: Soft, nontender. No hepatosplenomegaly, normal bowel sounds, no guarding or rigidity. EXTREMITIES: No clubbing, no edema, no cyanosis, 2+ pulses and upper and lower extremities. MUSCULOSKELETAL: Muscle strength and tone normal. SPINE: No scoliosis or deformity SKIN: No rashes CENTRAL NERVOUS SYSTEM: Alert and oriented -3. No focal deficits, tone is normal in all 4 extremities. PSYCHIATRIC: Alert and oriented -3. Appropriate affect. Intact judgment and insight. - Labs CBC & Chem 7: 07/19/19 05:29 07/19/19 05:29 Labs: Abnormal Lab Results - Last 24 Hours (Table) 07/18/19 07/18/19 07/18/19 Range/Units 06:12 11:34 16:34 APTT (22.0-30.0) sec Sodium (137-145) mmol/L Chloride (98-107) mmol/L Glucose (74-99) mg/dL POC Glucose (mg/dL) 208 H 269 H (75-99) mg/dL Hemoglobin A1c 8.7 H (4.0-6.0) % Magnesium (1.6-2.3) mg/dL 07/18/19 07/19/19 07/19/19 Range/Units 21:07 05:29 05:29 APTT 59.2 H (22.0-30.0) sec Sodium 136 L (137-145) mmol/L Chloride 110 H (98-107) mmol/L Glucose 255 H (74-99) mg/dL POC Glucose (mg/dL) 271 H (75-99) mg/dL Hemoglobin A1c (4.0-6.0) % Magnesium 1.4 L (1.6-2.3) mg/dL 07/19/19 Range/Units 06:01 APTT (22.0-30.0) sec Sodium (137-145) mmol/L Chloride (98-107) mmol/L Glucose (74-99) mg/dL POC Glucose (mg/dL) 235 H (75-99) mg/dL Hemoglobin A1c (4.0-6.0) % Magnesium (1.6-2.3) mg/dL Assessment and Plan Plan: Assessment: #1. Severe coronary artery disease, awaiting bypass grafting surgery on 07/20/2019 #2. Acute non-ST elevated myocardial infarction #3. COPD, FEV1 of 41% predicted according to the bedside spirometry #4. Hypertension #5. Hypothyroidism #6. Hyperlipidemia #7. Insulin-dependent diabetes mellitus #8. Anxiety #9. IBS, diverticulosis #10. Former smoker #11. GERD/reflux Plan: Continue current medical treatment, patient has no specific complaints, and shortness of breath or chest pain, she is tolerating ambulation, no acute events overnight, she is scheduled for bypass grafting surgery tomorrow 07/20/2019. Encouraged deep breathing and coughing, incentive spirometry use. I performed a history & physical examination of the patient and discussed their management with my nurse practitioner, Ashli Lindsay. I reviewed the nurse practitioner's note and agree with the documented findings and plan of care. Lung sounds are positive for clear breath sounds. The findings and the impression was discussed with the patient. I attest to the documentation by the nurse practitioner. Time with Patient: Less than 30
--- NOTE | 2019-07-19 11:33 | P.PN ---
Subjective Progress Note Date: 07/19/19 This is a 73-year-old female who presented to [facility] with chest discomfort, she ruled in for non-Q-wave myocardial infarction. Underwent a cardiac catheterization which revealed triple vessel coronary artery disease including a proximal LAD 95% occluded, mid LAD 95%, RCA mid l esion of 70-80% which is heavily calcified distally to PDA branch. Patient was recommended to undergo coronary artery bypass surgery. Patient was transferred to [facility], cardiothoracic consultation was requested. Patient does have history of hypertension, diabetes, hyperlipidemia, hypothyroidism. The patient was seen and examined this morning, feels well, denies any chest discomfort or breathing problems. She's been up ambulating without any difficulty. Blood pressure 132/70 with a heart rate 60, 96% on room air. White blood cell count 6.4, hemoglobin 12.2, platelet count 188. Sodium 138, potassium 4.2, BUN 18, creatinine 0.6, magnesium 1.6. 07/19/2019 Patient was seen and examined this morning, ambulating without any difficulty. Denies any chest discomfort. Blood pressure 154/70 with a heart rate in the 70s, 95% on room air. Objective - Vital Signs Vital signs: Vital Signs Temp 97.8 F 07/19/19 08:00 Pulse 72 07/19/19 08:00 Resp 16 07/19/19 11:27 BP 154/70 07/19/19 08:00 Pulse Ox 95 07/19/19 08:00 Intake & Output 07/18/19 07/19/19 07/19/19 18:59 06:59 18:59 Intake Total 827.85 122.1 120 Balance 827.85 122.1 120 Weight 76.2 kg Intake: Intake, IV Titration 227.85 122.1 Amount Heparin Sod,Pork in 0.45% 227.85 122.1 NaCl 25,000 unit In 0.45 % NaCl 1 250ml.bag @ 12 UNITS/KG/HR 8.872 mls/hr IV .Q24H SALLY Rx#: [id number] Oral 600 120 Other: Voiding Method Toilet Toilet Toilet # Voids 1 1 1 # Bowel Movements 0 0 - Exam PHYSICAL EXAMINATION: GENERAL: 73-year-old female in no acute distress at the time of my examination HEENT: Head is atraumatic, normocephalic. Pupils equal, round. Sclera anicteric. Conjunctiva are clear. Mucous membranes of the mouth are moist. Neck is supple. There is no elevated jugular venous pressure. No carotid bruit is heard. HEART EXAMINATION: Heart S1, S2 normal. No murmur or gallop heard. CHEST EXAMINATION: Lungs are clear to auscultation and precussion. No chest wall tenderness is noted on palpation or with deep breathing. ABDOMEN: Soft, nontender. Bowel sounds are heard. No organomegaly noted. EXTREMITIES: 2+ peripheral pulses with no evidence of peripheral edema and no calf tenderness noted. NEUROLOGIC patient is awake, alert and oriented 3 . . - Labs CBC & Chem 7: 07/19/19 05:29 07/19/19 05:29 Labs: Abnormal Lab Results - Last 24 Hours (Table) 07/18/19 07/18/19 07/18/19 Range/Units 06:12 11:34 16:34 APTT (22.0-30.0) sec Sodium (137-145) mmol/L Chloride (98-107) mmol/L Glucose (74-99) mg/dL POC Glucose (mg/dL) 208 H 269 H (75-99) mg/dL Hemoglobin A1c 8.7 H (4.0-6.0) % Magnesium (1.6-2.3) mg/dL 07/18/19 07/19/19 07/19/19 Range/Units 21:07 05:29 05:29 APTT 59.2 H (22.0-30.0) sec Sodium 136 L (137-145) mmol/L Chloride 110 H (98-107) mmol/L Glucose 255 H (74-99) mg/dL POC Glucose (mg/dL) 271 H (75-99) mg/dL Hemoglobin A1c (4.0-6.0) % Magnesium 1.4 L (1.6-2.3) mg/dL 07/19/19 Range/Units 06:01 APTT (22.0-30.0) sec Sodium (137-145) mmol/L Chloride (98-107) mmol/L Glucose (74-99) mg/dL POC Glucose (mg/dL) 235 H (75-99) mg/dL Hemoglobin A1c (4.0-6.0) % Magnesium (1.6-2.3) mg/dL Microbiology - Last 24 Hours (Table) 07/17/19 17:35 Nasal Screen MRSA/MSSA - Final Nasal Swab Assessment and Plan Plan: Assessment and plan #1 non-Q-wave myocardial infarction, status post cardiac catheterization which revealed triple vessel coronary artery disease #2 hypertension #3 diabetes #4 hyperlipidemia #5 hypothyroidism Plan Patient has been seen by cardiothoracic surgery, the plan is to proceed with coronary artery bypass grafting surgery on . We will continue to follow along with you. DNP note has been reviewed, I agree with a documented findings and plan of care. Patient was seen and examined.
[2019-07-19 11:49] LABS: Glucose,Whole Blood 209 mg/dL (75-99)
[2019-07-19 16:37] LABS: Glucose,Whole Blood 256 mg/dL (75-99)
[2019-07-19] MEDS: HEPARIN SOD,PORK IN 0.45% NACL 25,000 UNIT in 0.45% NACL 1 250ML.BAG IV SCH (17:11)
[2019-07-19 20:42] LABS: Glucose,Whole Blood 284 mg/dL (75-99)
[2019-07-19] MEDS ORDERED: LOSARTAN 50 MG TAB PO SCH (21:00)
[2019-07-19] MEDS: INSULIN DETEMIR (LEVEMIR) 100 UNIT/ML SYR SQ SCH (22:18)
[2019-07-19] MEDS: METOPROLOL TARTRATE 25 MG TAB PO SCH (22:19)
[2019-07-19] MEDS: ATORVASTATIN 40 MG TAB PO SCH (22:19)
[2019-07-20] MEDS: MUPIROCIN 2% OINT 22 GM TUBE NASAL SCH ×2 (04:47→22:35)
[2019-07-20] MEDS ORDERED: ALBUMIN HUMAN 5% 500 ML in EMPTY BAG 1 BAG IVPB ONE ×6 (05:00)
[2019-07-20] MEDS ORDERED: LACTATED RINGERS 1,000 ML IV SCH (05:00)
[2019-07-20] MEDS ORDERED: CALCIUM CHLORIDE 100 MG/ML 10 ML SYRINGE IVP ONE (05:00)
[2019-07-20] MEDS ORDERED: NITROGLYCERIN-D5W PMX 25 MG/250 ML BTL IV ONE (05:00)
[2019-07-20] MEDS ORDERED: ASPIRIN 81 MG PO ONE (05:00)
[2019-07-20] MEDS ORDERED: HEPARIN SODIUM 1,000 UN/ML (10ML VL) IV ONE (05:00)
[2019-07-20] MEDS ORDERED: SODIUM BICARB 8.4% 50 ML SYR (1 MEQ/ML) IV ONE (05:00)
[2019-07-20] MEDS ORDERED: METOPROLOL TARTRATE 12.5 MG TAB PO ONE (05:00)
[2019-07-20] MEDS ORDERED: ATORVASTATIN 10 MG TAB PO ONE (05:00)
[2019-07-20] MEDS ORDERED: CHLORHEXIDINE GLUCONATE 15 ML CUP MUCOUS MEM ONE (05:00)
[2019-07-20] MEDS ORDERED: PHENYLEPHRINE 10 MG/ML VIAL IV ONE (05:00)
[2019-07-20] MEDS ORDERED: DEXTROSE 5% IN WATER 1,000 ML with POTASSIUM CHLORIDE 25 MEQ, SODIUM CHLORIDE 2.5MEQ/ML... IV SCH ×6 (06:00)
[2019-07-20] MEDS ORDERED: CLEVIDIPINE BUTYRATE 25 MG in EMPTY BAG 1 BAG IV SCH (06:00)
[2019-07-20] MEDS ORDERED: HEPARIN SODIUM,PORCINE 5,000 UNIT in SODIUM CHLORIDE 0.9% 500 ML 500 ML IV ONE (06:00)
[2019-07-20] MEDS ORDERED: NITROGLYCERIN-D5W PMX 50 MG in DEXTROSE/WATER 1 250ML.BAG IV SCH ×2 (06:00→13:15)
[2019-07-20] MEDS ORDERED: ALBUMIN HUMAN 25% 50 ML in EMPTY BAG 1 BAG IVPB ONE (06:00)
[2019-07-20] MEDS ORDERED: NOREPINEPHRINE 4 MG in SODIUM CHLORIDE 0.9% 250 ML IV SCH (06:00)
[2019-07-20] MEDS ORDERED: PHENYLEPHRINE 40 MG in SODIUM CHLORIDE 0.9% 250 ML IV ONE (06:00)
[2019-07-20] MEDS ORDERED: DEXTROSE 5% IN WATER 1,000 ML with POTASSIUM CHLORIDE 110 MEQ, MAGNESIUM SULFATE 16 MEQ... IV SCH ×5 (06:00)
[2019-07-20] MEDS ORDERED: INSULIN REGULAR 100 UNIT in SODIUM CHLORIDE 0.9% 100 ML IV SCH (06:00)
[2019-07-20] MEDS ORDERED: PROTAMINE SULFATE 10 MG/ML 25 ML VIAL IV ONE (06:00)
[2019-07-20] MEDS ORDERED: PROTAMINE SULFATE 250 MG in EMPTY BAG 1 BAG IV ONE (06:00)
[2019-07-20] MEDS ORDERED: MANNITOL 25% 12.5 GM/50 ML VIAL IV ONE ×2 (06:00)
[2019-07-20] MEDS ORDERED: PROPOFOL 1,000 MG in EMPTY BAG 1 BAG IV PRN (06:00)
[2019-07-20] MEDS ORDERED: ceFAZolin 2,000 MG in SODIUM CHLORIDE 0.9% 30 ML IVPB ONE (06:00)
[2019-07-20] MEDS ORDERED: TRANEXAMIC ACID 2,000 MG in SODIUM CHLORIDE 0.9% 80 ML IV ONE (06:00)
[2019-07-20] MEDS ORDERED: MAGNESIUM SULFATE SYG 4.06 MEQ/ML SYRINGE IV ONE (06:00)
[2019-07-20] MEDS ORDERED: PAPAVERINE 360 MG in SODIUM CHLORIDE 0.9% 90 ML IV ONE (06:00)
[2019-07-20] MEDS ORDERED: ceFAZolin 1,000 MG in SODIUM CHLORIDE 0.9% IRRIGATIO 1,000 ML IRRIGATION ONE (06:00)
[2019-07-20] MEDS ORDERED: ceFAZolin 2 GM in SODIUM CHLORIDE 0.9% 30 ML IVPB ONE (06:00)
[2019-07-20 06:09] LABS: Glucose,Whole Blood 180 mg/dL (75-99)
[2019-07-20] MEDS ORDERED: LACTATED RINGERS 1,000 ML BAG IV ONE (07:39)
[2019-07-20] MEDS ORDERED: fentaNYL (PF) 50 MCG/ML 2 ML AMP ONE (07:39)
[2019-07-20] MEDS ORDERED: PHENYLEPHRINE-0.9% NACL SYG 1 MG/10 ML SYRINGE ONE (07:39)
[2019-07-20] MEDS ORDERED: VECURONIUM 10 MG VIAL IV ONE (07:39)
[2019-07-20] MEDS ORDERED: MAGNESIUM SULFATE 4 MEQ/ML 10ML VIAL ONE (07:39)
[2019-07-20] MEDS ORDERED: SODIUM CHLORIDE 0.9% 250 ML BAG ONE (07:39)
[2019-07-20] MEDS ORDERED: ELECTROLYTE-R (PH 7.4) 1,000 ML IV.SOLN IV ONE (07:39)
[2019-07-20] MEDS ORDERED: MIDAZOLAM 2 MG/2 ML VIAL ONE (07:39)
[2019-07-20] MEDS ORDERED: fentaNYL (PF) 50 MCG/ML 50 ML VIAL ONE (07:39)
[2019-07-20] MEDS ORDERED: LIDOCAINE 1% INJ 10MG/ML (20 ML MDV) ONE (07:39)
[2019-07-20] MEDS ORDERED: PROPOFOL 10 MG/ML 20 ML VIAL IV ONE (07:39)
[2019-07-20] MEDS ORDERED: TRANEXAMIC ACID 1,000 MG/10 ML VIAL ONE (07:39)
[2019-07-20] MEDS ORDERED: NITROGLYCERIN-D5W PMX 50 MG/250 ML BOTTLE IV ONE (07:39)
[2019-07-20] MEDS ORDERED: HEPARIN SODIUM,PORCINE 10,000 UNIT/ML 1 ML VIAL ONE (07:39)
[2019-07-20 08:54] LABS: ABG Base Excess 1.3 mmol/L; ABG Glucose Whole Blood 187 mg/dL (75-99); ABG HCO3 25 mmol/L (21-25); ABG Hematocrit 33 % (34.0-46.0); ABG Ionized Calcium 4.8 mg/dL (4.5-5.3); ABG Lactic Acid Whole Blood 1.1 mmol/L (0.5-1.6); ABG Oxygen Saturation 99.6 % (94-97); ABG PCO2 36 mmHg (35-45); ABG PH 7.45 (7.35-7.45); ABG PO2 172 mmHg (83-108); ABG Sodium Whole Blood 139 mmol/L (135-146); ABG TCO2 26 mmol/L (19-24)
[2019-07-20 10:16] LABS: ABG Base Excess -1.3 mmol/L; ABG Glucose Whole Blood 139 mg/dL (75-99); ABG HCO3 24 mmol/L (21-25); ABG Hematocrit 30 % (34.0-46.0); ABG Ionized Calcium 4.9 mg/dL (4.5-5.3); ABG Oxygen Saturation 99.7 % (94-97); ABG PCO2 44 mmHg (35-45); ABG PH 7.35 (7.35-7.45); ABG PO2 204 mmHg (83-108); ABG Potassium Whole Blood 3.6 mmol/L (3.4-4.5); ABG Sodium Whole Blood 140 mmol/L (135-146); ABG TCO2 26 mmol/L (19-24)
--- NOTE | 2019-07-20 10:51 | P.ANPRN ---
Procedure Note - Anesthesia - Invasive Line Right Central Line Time Out Performed: Yes (811) Date of Procedure: 07/20/19 Time of Procedure: 08:11 Location of Patient: Phase I Preparation: Sterile Prep Arterial Line Location: Radial Ultrasound Used: Yes Purpose - Visualization and Identification of Vasculature: Yes Needle Guage: 18g angiocath Image Stored and Saved: Yes Narrative: Central line placement per sterile protocol utilized. Right neck prepped. +local +angio +CVP +Jwire +uneventful Right IJ introduction and dilation cordis Right [place] Jackeline Time Out Performed: Yes Date of Procedure: 07/20/19 Time of Procedure: 08:21 Location of Patient: Phase I Preparation: Sterile Prep Arterial Line Location: Radial Ultrasound Used: No Purpose - Visualization and Identification of Vasculature: No Image Stored and Saved: No Narrative: Central line placement per sterile protocol utilized. Floated to wedge in one attempt under sterile protocol in sheath under sterile protocol. 49cc. w/d to 44.
[2019-07-20 10:58] LABS: ABG Base Excess -0.6 mmol/L; ABG Glucose Whole Blood 186 mg/dL (75-99); ABG HCO3 24 mmol/L (21-25); ABG Ionized Calcium 4.4 mg/dL (4.5-5.3); ABG PCO2 38 mmHg (35-45); ABG PH 7.41 (7.35-7.45); ABG PO2 366 mmHg (83-108); ABG Potassium Whole Blood 4.6 mmol/L (3.4-4.5); ABG Sodium Whole Blood 136 mmol/L (135-146); ABG TCO2 25 mmol/L (19-24)
[2019-07-20 11:33] LABS: ABG Base Excess -0.1 mmol/L; ABG Glucose Whole Blood 161 mg/dL (75-99); ABG HCO3 24 mmol/L (21-25); ABG Ionized Calcium 4.5 mg/dL (4.5-5.3); ABG PCO2 38 mmHg (35-45); ABG PH 7.42 (7.35-7.45); ABG PO2 407 mmHg (83-108); ABG Potassium Whole Blood 4.2 mmol/L (3.4-4.5); ABG Sodium Whole Blood 137 mmol/L (135-146); ABG TCO2 26 mmol/L (19-24)
--- NOTE | 2019-07-20 11:49 | P.EN ---
i came to see the pt and she was in surgery
[2019-07-20 12:36] LABS: ABG Base Excess -0.2 mmol/L; ABG Glucose Whole Blood 79 mg/dL (75-99); ABG HCO3 25 mmol/L (21-25); ABG Ionized Calcium 4.8 mg/dL (4.5-5.3); ABG Oxygen Saturation 99.1 % (94-97); ABG PCO2 39 mmHg (35-45); ABG PO2 135 mmHg (83-108); ABG Potassium Whole Blood 3.5 mmol/L (3.4-4.5); ABG Sodium Whole Blood 139 mmol/L (135-146); ABG TCO2 26 mmol/L (19-24)
[2019-07-20 12:47] LABS: ABG Lactic Acid Whole Blood 2.6 mmol/L (0.5-1.6)
[2019-07-20 12:48] LABS: ABG Hematocrit 20 % (34.0-46.0); ABG Lactic Acid Whole Blood 2.3 mmol/L (0.5-1.6)
[2019-07-20 12:49] LABS: ABG Hematocrit 24 % (34.0-46.0); ABG Lactic Acid Whole Blood 2.3 mmol/L (0.5-1.6)
[2019-07-20 12:49] LABS: ABG Hematocrit 22 % (34.0-46.0); ABG Lactic Acid Whole Blood 2.4 mmol/L (0.5-1.6)
[2019-07-20] MEDS ORDERED: DEXTROSE 5% IN WATER 100 ML with AMIODARONE 150 MG IV PRN (13:13)
[2019-07-20] MEDS ORDERED: METOCLOPRAMIDE 5 MG/ML 2 ML VIAL IVP PRN (13:13)
[2019-07-20] MEDS ORDERED: Potassium Replacement Protocol 1 EACH MISC MISCELLANE PRN (13:13)
[2019-07-20] MEDS ORDERED: AMIODARONE 300 MG in DEXTROSE 5% IN WATER 250 ML IV PRN ×2 (13:13)
[2019-07-20] MEDS ORDERED: IPRATROPIUM-ALBUTEROL 3 ML NEB INHALATION PRN (13:13)
[2019-07-20] MEDS ORDERED: AMIODARONE 360 MG in DEXTROSE 5% IN WATER 200 ML IV PRN ×2 (13:13)
[2019-07-20] MEDS ORDERED: Phosphorus Replacement Protoco 1 EACH MISC MISCELLANE PRN (13:13)
[2019-07-20] MEDS ORDERED: Magnesium Replacement Protocol 1 EACH MISC MISCELLANE PRN (13:13)
[2019-07-20] MEDS ORDERED: CALCIUM GLUCONATE 2 GM in SODIUM CHLORIDE 0.9% 100 ML IVPB PRN (13:13)
[2019-07-20] MEDS ORDERED: PROPOFOL 1,000 MG in EMPTY BAG 1 BAG IV SCH (13:15)
[2019-07-20] MEDS: LACTATED RINGERS 1,000 ML IV SCH (13:15)
[2019-07-20] MEDS ORDERED: DEXTROSE 50% SYRINGE 50 ML IVP STA (13:30)
[2019-07-20 13:34] LABS: Glucose,Whole Blood 43 mg/dL (75-99)
[2019-07-20] MEDS ORDERED: hydrALAZINE HCL 20 MG/ML 1 ML VIAL IVP PRN (13:36)
[2019-07-20] MEDS: CLEVIDIPINE BUTYRATE 25 MG in EMPTY BAG 1 BAG IV SCH ×3 (13:40→20:13)
[2019-07-20 13:48] LABS: Glucose,Whole Blood 192 mg/dL (75-99)
[2019-07-20 13:50] LABS: ABG Base Excess -1.7 mmol/L; ABG HCO3 25 mmol/L (21-25); ABG Oxygen Saturation 99.6 % (94-97); ABG PCO2 49 mmHg (35-45); ABG PH 7.31 (7.35-7.45); ABG PO2 224 mmHg (83-108); ABG TCO2 26 mmol/L (19-24)
[2019-07-20 13:51] LABS: Allen Test Performed? no
--- NOTE | 2019-07-20 14:00 | XR ---
EXAMINATION TYPE: XR chest 1V portable DATE OF EXAM: 07/20/2019 COMPARISON: 07/18/2019 HISTORY: Status post cardiac surgery. TECHNIQUE: Single frontal view of the chest is obtained. FINDINGS: Mercedes-Jackeline catheter from a right internal jugular approach has been placed terminating in t he pulmonary outflow tract. Post CABG changes are seen in the chest. 2 mediastinal drains are noted. Left-sided thoracostomy tube is seen. Possible epicardial pacing lead overlying the inferior heart ozzy rder. Cholecystectomy clips are present. Endotracheal tube terminates approximately 2.5 cm from the c stephanie at the level of the aortic arch, appropriately placed. No residual pneumothorax seen. Overall l ow lung volumes. IMPRESSION: Lines and tubes as detailed above. No residual pneumothorax. Low lung volumes.
--- NOTE | 2019-07-20 14:13 | PN ---
PROGRESS NOTE Ms. Varela is a 73-year-old female who underwent cardiac catheterization by Dr. Juan Carlos Truong and was found to have quite severe stenosis upon the right coronary artery and the LAD; underwent coronary artery bypass grafting today from [place] to the LAD, saphenous vein graft to the right coronary artery. She is still in the ICU intubated and sedated, hemodynamically stable on no pressors, in sinus ____. PHYSICAL EXAMINATION: Blood pressure running in the 150s with a heart rate in the 60s. LUNGS: Clear anteriorly. HEART: Regular rate and rhythm, S1, S2; no S3, with a rub. No gallop. ABDOMEN: Soft, hypoactive bowel sounds. No organomegaly. EXTREMITIES: No edema. IMPRESSION: 1. Status post coronary artery bypass grafting with 2-vessel bypass. 2. History of hypertension. 3. Hyperlipidemia. 4. Diabetes mellitus. RECOMMENDATION: Will continue routine postoperative care. Hopefully, the patient will be extubated soon. Will reinitiate treatment with atorvastatin and beta gonzález, and depending on her progress, further recommendations will be made. MMCIARRAL / IJN: [id number] /
[2019-07-20 14:14] LABS: Glucose,Whole Blood 114 mg/dL (75-99)
[2019-07-20 14:49] LABS: Basophils % (A) 0 %; Eosinophils # (A) 0.1 k/uL (0-0.7); Eosinophils % (A) 2 %; HCT 27.9 % (34.0-46.0); Lymphocytes # (A) 0.8 k/uL (1.0-4.8); Lymphocytes % (A) 12 %; MCH 28.6 pg (25.0-35.0); MCHC 32.8 g/dL (31.0-37.0); MCV 87.2 fL (80.0-100.0); Mean Platelet Volume 8.2; Monocytes # (A) 0.1 k/uL (0-1.0); Monocytes % (A) 1 %; Neutrophils # (A) 5.3 k/uL (1.3-7.7); Neutrophils % (A) 84 %; Platelet Count 119 k/uL (150-450); RDW 14.2 % (11.5-15.5); WBC 6.3 k/uL (3.8-10.6)
[2019-07-20 14:52] LABS: HGB 9.1 gm/dL (11.4-16.0)
[2019-07-20 14:55] LABS: INR 1.1 (<1.2); Partial Thromboplastin Time 26.3 sec (22.0-30.0); Prothrombin Time 11.1 sec (9.0-12.0)
[2019-07-20] MEDS: LEVOTHYROXINE 100 MCG TAB PO SCH (15:02)
[2019-07-20 15:07] LABS: Ionized Calcium 4.9 mg/dL (4.5-5.3)
[2019-07-20 15:14] LABS: ALT 28 U/L (4-34); AST 57 U/L (14-36); African American GFR (CKD) >90 (>60 ml/min/1.73 sqM); Alkaline Phosphatase 34 U/L (38-126); Anion Gap 5 mmol/L; Blood Urea Nitrogen 12 mg/dL (7-17); Calcium 8.2 mg/dL (8.4-10.2); Carbon Dioxide 24 mmol/L (22-30); Chloride 107 mmol/L (98-107); Glucose 136 mg/dL (74-99); Non-African American GFR(CKD) >90 (>60 ml/min/1.73 sqM); Potassium 4.5 mmol/L (3.5-5.1); Sodium 136 mmol/L (137-145); Total Bilirubin 0.4 mg/dL (0.2-1.3); Total Protein 5.1 g/dL (6.3-8.2)
[2019-07-20] MEDS: INSULIN REGULAR 100 UNIT in SODIUM CHLORIDE 0.9% 100 ML IV SCH ×2 (15:15→21:15)
[2019-07-20 15:16] LABS: Glucose,Whole Blood 192 mg/dL (75-99)
[2019-07-20] MEDS ORDERED: IPRATROPIUM-ALBUTEROL 3 ML NEB INHALATION SCH (16:00)
[2019-07-20 16:10] LABS: Glucose,Whole Blood 246 mg/dL (75-99)
[2019-07-20 16:22] LABS: Basophils % (A) 0 %; Eosinophils # (A) 0.1 k/uL (0-0.7); Eosinophils % (A) 1 %; HCT 28.2 % (34.0-46.0); HGB 9.4 gm/dL (11.4-16.0); Lymphocytes # (A) 0.7 k/uL (1.0-4.8); Lymphocytes % (A) 8 %; MCHC 33.3 g/dL (31.0-37.0); MCV 87.1 fL (80.0-100.0); Mean Platelet Volume 8.5; Monocytes # (A) 0.4 k/uL (0-1.0); Monocytes % (A) 5 %; Neutrophils # (A) 6.6 k/uL (1.3-7.7); Neutrophils % (A) 83 %; Platelet Count 127 k/uL (150-450); RBC 3.24 m/uL (3.80-5.40); RDW 14.3 % (11.5-15.5)
[2019-07-20 16:33] LABS: ABG Base Excess -2.1 mmol/L; ABG HCO3 23 mmol/L (21-25); ABG Oxygen Saturation 97.3 % (94-97); ABG PCO2 40 mmHg (35-45); ABG PH 7.37 (7.35-7.45); ABG PO2 89 mmHg (83-108); ABG TCO2 24 mmol/L (19-24); Allen Test Performed? Yes
[2019-07-20] MEDS: IPRATROPIUM-ALBUTEROL 3 ML NEB INHALATION SCH ×2 (17:14→19:53)
[2019-07-20 17:15] LABS: Glucose,Whole Blood 266 mg/dL (75-99)
[2019-07-20] MEDS: ONDANSETRON 4 MG/2 ML VIAL IVP PRN (17:47)
[2019-07-20] MEDS: ACETAMINOPHEN IV (For NPO) 1,000 MG in EMPTY BAG 1 BAG IVPB SCH (18:07)
[2019-07-20] MEDS: KETOROLAC 30 MG/ML 1 ML VIAL IVP SCH (18:08)
[2019-07-20 18:17] LABS: Glucose,Whole Blood 244 mg/dL (75-99)
--- NOTE | 2019-07-20 18:53 | P.PN ---
Subjective Progress Note Date: 07/20/19 On today's evaluation of 07/20/2019 the patient is being seen in intensive care unit following bypass surgery. The patient underwent [place] to LAD and SVG to PDA along with left atrial appendage clipping. Postop, the patient was brought into the intensive care unit. Chest x-ray showed adequate positioning of the ET tube. Lungs are well expanded and there was no evidence of any pneumothorax. The patient has a mediastinal and left pleural chest tube. There are 2 mediastinal chest tubes for now. Overall output from the fumes have been minimal, as the patient is producing 50 mL from the mediastinal chest tube and 100 mL from the pleural chest tube. The cardiac output is 6.7 with an index of 3.8. Pulmonary artery pressures are 37/20. The patient was gradually weaned off the mechanical ventilator. I was able to give this patient spontaneous breathing trial with a pressure support of 5 and a PEEP of 5 for a total of 30 minutes. The blood gases was obtained at the end of the breathing trial showed a pH of 7.37 with a pCO2 of 40 and pO2 of 89. The weaning parameters were all adequate. Based on that, the patient was extubated. Currently she is still drowsy and sleepy. She is on oxygen at 4 L per minute nasal cannula. Her cardiac rhythm is sinus and the low 80s. She is producing adequate amount of urine output. Blood pressure is elevated and the patient is currently a on a combination of Cleviprex 6 mg/h and nitroglycerin at 5 g per KG per minute. Urine output is nor that of 30 mL an hour. The patient is on insulin drip at 7 units an hour. She is moving all 4 extremities and she is calm and comfortable to. Sternum is dry clean and intact. No other significant events otherwise for now. Objective - Vital Signs Vital signs: Vital Signs Temp 97.9 F 07/20/19 17:10 Pulse 84 07/20/19 17:10 Resp 20 07/20/19 17:10 BP 108/58 07/20/19 17:10 Pulse Ox 93 L 07/20/19 17:10 Intake & Output 07/19/19 07/20/19 07/20/19 18:59 06:59 18:59 Intake Total 787.2 214.6 454.036 Output Total 2195 Balance 787.2 214.6 -1740.964 Weight 74.3 kg Intake: IV 100 69 Normal Saline Pressure 36 Bag Intake, IV Titration 297.2 114.6 385.036 Amount ACETAMINOPHEN IV (For NPO 100 ) 1,000 mg In Empty Bag 1 bag @ 400 mls/hr IVPB Q6HR SALLY Rx#:[id number] Clevidipine Butyrate 25 69.400 mg In Empty Bag 1 bag @ 1 MG/HR 2 mls/hr IV .Q24H SALLY Rx#:[id number] Heparin Sod,Pork in 0.45% 97.2 114.6 NaCl 25,000 unit In 0.45 % NaCl 1 250ml.bag @ 12 UNITS/KG/HR 8.872 mls/hr IV .Q24H SALLY Rx#: [id number] Insulin Regular 100 unit 8.147 In Sodium Chloride 0.9% 100 ml @ Per Protocol IV .Q0M SALLY Rx#:[id number] Lactated Ringers 1,000 ml 150 @ 50 mls/hr IV .Q20H SALLY Rx#:[id number] Magnesium Sulfate-D5w Pmx 200 1 gm In Dextrose/Water 1 100ml.bag @ 100 mls/hr IVPB Q1H SALLY Rx#: [id number] Propofol 1,000 mg In 7.489 Empty Bag 1 bag @ Titrate IV .Q0M SALLY Rx#: [id number] ceFAZolin 2 gm In Sodium 50 Chloride 0.9% 50 ml @ 100 mls/hr IVPB Q8H SALLY Rx#: [id number] Oral 490 Output: Chest Tube Drainage 145 Left Pleural 42 Mediastinal x2 103 Urine 1350 Estimated Blood Loss 700 Other: Voiding Method Toilet Toilet # Voids 1 1 # Bowel Movements 0 ABP, PAP, CO, CI - Last Documented Arterial Blood Pressure 133/46 Pulmonary Artery Pressure 34/13 Cardiac Output 6.7 Cardiac Index 3.8 - Exam Gen. appearance the patient is drowsy and sleepy still under the effect of anesthetics. Head exam was generally normal. There was no scleral icterus or corneal arcus. Mucous membranes were moist. Neck was supple and without jugular venous distension, thyromegaly, or carotid bruits. Carotids were easily palpable bilaterally. There was no adenopathy. The upper lip is slightly swollen compared to the lower lip. The patient has a right IJ Hunter-Jackeline catheter in place. Exit site is dry clean and intact. Lungs sounds are diminished in lung bases bilaterally. Cardiac exam revealed the PMI to be normally situated and sized. The rhythm was regular and no extrasystoles were noted during several minutes of auscultation. The first and second heart sounds were normal and physiologic splitting of the second heart sound was noted. There were no murmurs, rubs, clicks, or gallops. There is a cardiac rub heard over the precordium. Sternum stable clean and intact. The patient has 2 mediastinal and 1 pleural chest tube. Abdominal exam revealed normal bowel sounds. The abdomen was soft, non-tender, and without masses, organomegaly, or appreciable enlargement of the abdominal aorta. Examination of the extremities revealed easily palpable radial, femoral and pedal pulses. There was no cyanosis, clubbing or edema. Examination of the skin revealed no evidence of significant rashes, suspicious a ppearing nevi or other concerning lesions. Neurologically she is following simple commands pH is quite drowsy. Moving all 4 extremities. Pupils are equal and reactive to light. No facial asymmetry. - Labs CBC & Chem 7: 07/20/19 16:10 07/20/19 14:35 Labs: Abnormal Lab Results - Last 24 Hours (Table) 07/19/19 07/19/19 07/20/19 Range/Units 10:52 20:40 06:05 RBC (3.80-5.40) m/uL Hgb (11.4-16.0) gm/dL Hct (34.0-46.0) % Plt Count (150-450) k/uL Lymphocytes # (1.0-4.8) k/uL ABG pH (7.35-7.45) ABG pCO2 (35-45) mmHg ABG pO2 (83-108) mmHg ABG Total CO2 (19-24) mmol/L ABG O2 Saturation (94-97) % ABG Hematocrit (34.0-46.0) % ABG Potassium (3.4-4.5) mmol/L ABG Ionized Calcium (4.5-5.3) mg/dL ABG Glucose (75-99) mg/dL ABG Lactic Acid (0.5-1.6) mmol/L Hemoglobin (11.4-16.0) gm/dL Sodium (137-145) mmol/L Creatinine (0.52-1.04) mg/dL Glucose (74-99) mg/dL POC Glucose (mg/dL) 284 H 180 H (75-99) mg/dL Calcium (8.4-10.2) mg/dL AST (14-36) U/L Alkaline Phosphatase (38-126) U/L Total Protein (6.3-8.2) g/dL Albumin (3.5-5.0) g/dL Arterial Blood Potassium (3.4-4.5) mmol/L Arterial Blood Glucose (75-99) mg/dL Crossmatch See Detail 07/20/19 07/20/19 07/20/19 Range/Units 08:56 10:18 11:00 RBC (3.80-5.40) m/uL Hgb (11.4-16.0) gm/dL Hct (34.0-46.0) % Plt Count (150-450) k/uL Lymphocytes # (1.0-4.8) k/uL ABG pH (7.35-7.45) ABG pCO2 (35-45) mmHg ABG pO2 172 H 204 H 366 H (83-108) mmHg ABG Total CO2 26 H 26 H 25 H (19-24) mmol/L ABG O2 Saturation 99.6 H 99.7 H 100.0 H (94-97) % ABG Hematocrit 33 L 30 L 20 L* (34.0-46.0) % ABG Potassium 4.6 H (3.4-4.5) mmol/L ABG Ionized Calcium 4.4 L (4.5-5.3) mg/dL ABG Glucose 187 H 139 H 186 H (75-99) mg/dL ABG Lactic Acid 2.6 H* 2.3 H* (0.5-1.6) mmol/L Hemoglobin 10.8 L 9.8 L 6.5 L* (11.4-16.0) gm/dL Sodium (137-145) mmol/L Creatinine (0.52-1.04) mg/dL Glucose (74-99) mg/dL POC Glucose (mg/dL) (75-99) mg/dL Calcium (8.4-10.2) mg/dL AST (14-36) U/L Alkaline Phosphatase (38-126) U/L Total Protein (6.3-8.2) g/dL Albumin (3.5-5.0) g/dL Arterial Blood Potassium 4.6 H (3.4-4.5) mmol/L Arterial Blood Glucose 187 H 139 H 186 H (75-99) mg/dL Crossmatch 07/20/19 07/20/19 07/20/19 Range/Units 11:35 12:38 13:28 RBC (3.80-5.40) m/uL Hgb (11.4-16.0) gm/dL Hct (34.0-46.0) % Plt Count (150-450) k/uL Lymphocytes # (1.0-4.8) k/uL ABG pH (7.35-7.45) ABG pCO2 (35-45) mmHg ABG pO2 407 H 135 H (83-108) mmHg ABG Total CO2 26 H 26 H (19-24) mmol/L ABG O2 Saturation 100.0 H 99.1 H (94-97) % ABG Hematocrit 22 L 24 L (34.0-46.0) % ABG Potassium (3.4-4.5) mmol/L ABG Ionized Calcium (4.5-5.3) mg/dL ABG Glucose 161 H (75-99) mg/dL ABG Lactic Acid 2.4 H* 2.3 H* (0.5-1.6) mmol/L Hemoglobin 7.2 L 7.9 L (11.4-16.0) gm/dL Sodium (137-145) mmol/L Creatinine (0.52-1.04) mg/dL Glucose (74-99) mg/dL POC Glucose (mg/dL) 43 L (75-99) mg/dL Calcium (8.4-10.2) mg/dL AST (14-36) U/L Alkaline Phosphatase (38-126) U/L Total Protein (6.3-8.2) g/dL Albumin (3.5-5.0) g/dL Arterial Blood Potassium (3.4-4.5) mmol/L Arterial Blood Glucose 161 H (75-99) mg/dL Crossmatch 07/20/19 07/20/19 07/20/19 Range/Units 13:47 13:48 14:12 RBC (3.80-5.40) m/uL Hgb (11.4-16.0) gm/dL Hct (34.0-46.0) % Plt Count (150-450) k/uL Lymphocytes # (1.0-4.8) k/uL ABG pH 7.31 L (7.35-7.45) ABG pCO2 49 H (35-45) mmHg ABG pO2 224 H (83-108) mmHg ABG Total CO2 26 H (19-24) mmol/L ABG O2 Saturation 99.6 H (94-97) % ABG Hematocrit (34.0-46.0) % ABG Potassium (3.4-4.5) mmol/L ABG Ionized Calcium (4.5-5.3) mg/dL ABG Glucose (75-99) mg/dL ABG Lactic Acid (0.5-1.6) mmol/L Hemoglobin (11.4-16.0) gm/dL Sodium (137-145) mmol/L Creatinine (0.52-1.04) mg/dL Glucose (74-99) mg/dL POC Glucose (mg/dL) 192 H 114 H (75-99) mg/dL Calcium (8.4-10.2) mg/dL AST (14-36) U/L Alkaline Phosphatase (38-126) U/L Total Protein (6.3-8.2) g/dL Albumin (3.5-5.0) g/dL Arterial Blood Potassium (3.4-4.5) mmol/L Arterial Blood Glucose (75-99) mg/dL Crossmatch 07/20/19 07/20/19 07/20/19 Range/Units 14:35 14:35 15:13 RBC 3.20 L (3.80-5.40) m/uL Hgb 9.1 L D (11.4-16.0) gm/dL Hct 27.9 L (34.0-46.0) % Plt Count 119 L (150-450) k/uL Lymphocytes # 0.8 L (1.0-4.8) k/uL ABG pH (7.35-7.45) ABG pCO2 (35-45) mmHg ABG pO2 (83-108) mmHg ABG Total CO2 (19-24) mmol/L ABG O2 Saturation (94-97) % ABG Hematocrit (34.0-46.0) % ABG Potassium (3.4-4.5) mmol/L ABG Ionized Calcium (4.5-5.3) mg/dL ABG Glucose (75-99) mg/dL ABG Lactic Acid (0.5-1.6) mmol/L Hemoglobin (11.4-16.0) gm/dL Sodium 136 L (137-145) mmol/L Creatinine 0.45 L (0.52-1.04) mg/dL Glucose 136 H (74-99) mg/dL POC Glucose (mg/dL) 192 H (75-99) mg/dL Calcium 8.2 L (8.4-10.2) mg/dL AST 57 H (14-36) U/L Alkaline Phosphatase 34 L (38-126) U/L Total Protein 5.1 L (6.3-8.2) g/dL Albumin 3.0 L (3.5-5.0) g/dL Arterial Blood Potassium (3.4-4.5) mmol/L Arterial Blood Glucose (75-99) mg/dL Crossmatch 07/20/19 07/20/19 07/20/19 Range/Units 16:08 16:10 16:30 RBC 3.24 L (3.80-5.40) m/uL Hgb 9.4 L (11.4-16.0) gm/dL Hct 28.2 L (34.0-46.0) % Plt Count 127 L (150-450) k/uL Lymphocytes # 0.7 L (1.0-4.8) k/uL ABG pH (7.35-7.45) ABG pCO2 (35-45) mmHg ABG pO2 (83-108) mmHg ABG Total CO2 (19-24) mmol/L ABG O2 Saturation 97.3 H (94-97) % ABG Hematocrit (34.0-46.0) % ABG Potassium (3.4-4.5) mmol/L ABG Ionized Calcium (4.5-5.3) mg/dL ABG Glucose (75-99) mg/dL ABG Lactic Acid (0.5-1.6) mmol/L Hemoglobin (11.4-16.0) gm/dL Sodium (137-145) mmol/L Creatinine (0.52-1.04) mg/dL Glucose (74-99) mg/dL POC Glucose (mg/dL) 246 H (75-99) mg/dL Calcium (8.4-10.2) mg/dL AST (14-36) U/L Alkaline Phosphatase (38-126) U/L Total Protein (6.3-8.2) g/dL Albumin (3.5-5.0) g/dL Arterial Blood Potassium (3.4-4.5) mmol/L Arterial Blood Glucose (75-99) mg/dL Crossmatch 07/20/19 Range/Units 17:14 RBC (3.80-5.40) m/uL Hgb (11.4-16.0) gm/dL Hct (34.0-46.0) % Plt Count (150-450) k/uL Lymphocytes # (1.0-4.8) k/uL ABG pH (7.35-7.45) ABG pCO2 (35-45) mmHg ABG pO2 (83-108) mmHg ABG Total CO2 (19-24) mmol/L ABG O2 Saturation (94-97) % ABG Hematocrit (34.0-46.0) % ABG Potassium (3.4-4.5) mmol/L ABG Ionized Calcium (4.5-5.3) mg/dL ABG Glucose (75-99) mg/dL ABG Lactic Acid (0.5-1.6) mmol/L Hemoglobin (11.4-16.0) gm/dL Sodium (137-145) mmol/L Creatinine (0.52-1.04) mg/dL Glucose (74-99) mg/dL POC Glucose (mg/dL) 266 H (75-99) mg/dL Calcium (8.4-10.2) mg/dL AST (14-36) U/L Alkaline Phosphatase (38-126) U/L Total Protein (6.3-8.2) g/dL Albumin (3.5-5.0) g/dL Arterial Blood Potassium (3.4-4.5) mmol/L Arterial Blood Glucose (75-99) mg/dL Crossmatch Assessment and Plan Plan: 1 multivessel coronary artery disease post bypass surgery. The patient was having angina on outpatient basis. She was quite symptomatic. The patient underwent cardiac catheterization and subsequently she was brought in to undergo coronary artery bypass surgery. She is currently postop day #0. The patient is currently extubated. She is post thoracotomy. Chest tubes are all in place. She was weaned off the mechanical ventilator and she was extubated without any major difficulties currently on 4 L of oxygen by nasal cannula. Hemodynamically stable. Slightly hypertensive. 2. Acute non-ST elevated myocardial infarction 3. COPD, FEV1 of 41% predicted according to the bedside spirometry 4. Hypertension, current BP is elevated and the patient is currently on a combination of Cleviprex and nitroglycerin drip. 5. Hypothyroidism 6. Hyperlipidemia 7. Insulin-dependent diabetes mellitus, currently on insulin drip for blood sugar control 8. Anxiety 9. IBS, diverticulosis 10. Former smoker 11. GERD/reflux Plan Encouraged use of incentive spirometer. Wean off the nitroglycerin and the Cleviprex drip based on blood pressure control Insulin monitor the chest tubes monitor the output from the chest tube drip for blood sugar control Monitor hemodynamics Monitor chest tube output Monitor urine output Bronchodilators evaluation was done and more than 30 minutes. This is a critically care evaluation done by frame feeder We'll follow
[2019-07-20 19:05] LABS: Glucose,Whole Blood 207 mg/dL (75-99)
[2019-07-20 19:19] LABS: Basophils % (A) 0 %; Eosinophils % (A) 0 %; HCT 28.5 % (34.0-46.0); HGB 9.5 gm/dL (11.4-16.0); Lymphocytes # (A) 0.7 k/uL (1.0-4.8); Lymphocytes % (A) 7 %; MCH 29.2 pg (25.0-35.0); MCHC 33.3 g/dL (31.0-37.0); MCV 87.8 fL (80.0-100.0); Mean Platelet Volume 8.4; Monocytes # (A) 0.5 k/uL (0-1.0); Monocytes % (A) 5 %; Neutrophils # (A) 8.1 k/uL (1.3-7.7); Neutrophils % (A) 86 %; Platelet Count 122 k/uL (150-450); RBC 3.25 m/uL (3.80-5.40); RDW 14.2 % (11.5-15.5); WBC 9.4 k/uL (3.8-10.6)
[2019-07-20 20:03] LABS: Glucose,Whole Blood 186 mg/dL (75-99)
--- NOTE | 2019-07-20 20:05 | OP ---
OPERATIVE REPORT DATE OF SURGERY: 07/20/2019. PREOPERATIVE DIAGNOSIS: Coronary artery disease. POSTOPERATIVE DIAGNOSIS: Coronary artery disease. PROCEDURES: 1. Coronary bypass grafting of two vessels (left internal mammary artery to left anterior descending artery, saphenous vein graft to posterior descending artery). 2. Endoscopic harvest of right greater saphenous vein. 3. Epiaortic ultrasound. 4. Transesophageal echocardiogram. 5. Ligation of left atrial appendage using 35 mm AtriClip. SURGEON: Arron Blanchard M.D. ASSISTANTS: 1. GLORIA Irizarry. 2. Osvaldo Peñaloza NP. ANESTHESIA: General. SPECIMENS: None. COMPLICATIONS: None. INDICATION: The patient is a 73-year-old female with a history of multiple medical problems who reports chest pain with radiation to her arms and jaw. Workup revealed a non-ST- elevation myocardial infarction. Cardiac catheterization revealed multivessel coronary artery disease, including a tight proximal left anterior descending artery lesion. Coronary artery bypass was recommended. The risks, benefits and alternatives to this procedure were discussed with the patient. All of her questions were answered. Consent was obtained. FINDINGS: The left internal mammary artery was a good conduit with brisk flow. The saphenous vein was a good conduit. All of her coronary arteries were heavily calcified and diffusely diseased. The PDA measured 1 x 1.3 mm and was a heavily diseased vessel. The LAD measured 1.3 mm and was a heavily diseased vessel. PROCEDURE IN DETAIL: The patient was taken to the operating room and placed supine on the operating table. After induction of general anesthesia, she was prepped and draped in the usual sterile fashion. Preoperative transesophageal echocardiogram confirmed a normal left ventricular ejection fraction and no significant valvular pathology. A median sternotomy was performed. The left internal mammary artery was harvested in standard fashion, taking care to clip all branches. Intravenous heparin was administered and the vessel was transected distally, revealing brisk flow. Simultaneously, greater saphenous vein was harvested from the right lower extremity using an endoscopic technique. All branches were tied. The mammary artery and saphenous vein were good conduits. A pericardial cradle was created. Ascending aorta was palpated. There was no significant calcific plaque noted. Epiaortic ultrasound was then performed on the ascending aorta. Again no calcific plaque or atheromatous disease was identified. An arterial cannula was placed in distal ascending aorta. A venous cannula was placed through the right atrial appendage and directed into the IVC. Both antegrade and retrograde catheters were placed as well. The patient was then placed on cardiopulmonary bypass with good decompression of the heart. The cross-clamp was applied. Cold blood potassium cardioplegia was delivered to achieve arrest of the heart. Of note, cardioplegia was delivered every 15 to 20 minutes while the patient was under crossclamp. I began by inspecting the inferior wall. The right coronary artery was heavily diseased and there was no soft spot for bypass noted. The PDA was identified. It too contained heavy calcific disease. There were a few random soft spots, and I chose one which appeared to be reasonable. A small arteriotomy was created. I did not attempt to pass a probe, given the diffuse calcific disease in the artery. Using saphenous vein in a reverse fashion, end-to-side anastomosis was created. This was performed using running 7-0 Prolene suture. Of note, there were times when the needle had difficulty passing through the vessel, as it was so heavily calcified. The graft was hemostatic and had good flow. Next attention was turned to the anterior wall. The left anterior descending artery was identified. Throughout its course it was heavily diseased with spiraling diffuse calcium. It was difficult to find a soft spot amenable for bypass. Distally it was heavily calcified up to nearly the apex. Near the takeoff of the most distal diagonal artery, I did find one spot which was usable. A small arteriotomy was created. Using the left internal mammary artery, an end-to-side anastomosis was created. This was performed using a running 8-0 Prolene suture. The graft was hemostatic and appeared to fill the diagonal artery as well as the LAD distally after temporary removal of the bulldog. The mammary pedicle was intact on the anterior surface of the heart. Attention was then turned to the proximal anastomosis. This was performed in an end-to- side fashion using running 6-0 Prolene suture. Lidocaine and magnesium were administered. The aortic cross-clamp was removed. The vein graft was de-aired in the standard fashion. The distal anastomoses were inspected and appeared to be hemostatic. Temporary atrial and ventricular pacing wires were placed and brought through the skin. The patient was then weaned off cardiopulmonary bypass. She without difficulty or the addition of any pressor support. Follow-up transesophageal echocardiogram confirmed good left ventricular ejection fraction and no valvular pathology. Protamine was administered. There were no adverse reactions. The remaining cannulas were then removed. The mediastinum was copiously irrigated with warm saline solution. All surgical sites were inspected and appeared to be hemostatic. Soft tissues were reapproximated over the ascending aorta as well as over the apex of the heart. Straight 32-Swazi chest tubes were placed directly in the left pleural spaces of the mediastinum. These were all secured to the skin using sutures. The sternum was then reapproximated using the [place] cable system. The cables were placed in a [id number] fashion. At the conclusion of the closure, the sternum was well aligned. The wound was then closed in multiple layers, given her obesity. Sterile dressings were applied. The patient appeared to tolerate the procedure well. There were no immediate complications. She did not receive any blood products and was not on any pressor support. She returned to the ICU in critical but stable condition. MMODL / IJN: [id number] /
[2019-07-20] MEDS ORDERED: METOPROLOL TARTRATE 12.5 MG TAB PO SCH (21:00)
[2019-07-20 21:07] LABS: Glucose,Whole Blood 141 mg/dL (75-99)
[2019-07-20] MEDS: HEPARIN SODIUM,PORCINE 5,000 UNIT/ML 1 ML VIAL SQ SCH (21:09)
[2019-07-20 22:24] LABS: Glucose,Whole Blood 116 mg/dL (75-99)
[2019-07-20] MEDS: ALBUMIN HUMAN 5% 250 ML in EMPTY BAG 1 BAG IVPB PRN (22:34)
[2019-07-20 23:21] LABS: Glucose,Whole Blood 111 mg/dL (75-99)
[2019-07-21 00:07] LABS: Glucose,Whole Blood 118 mg/dL (75-99)
[2019-07-21] MEDS: ACETAMINOPHEN IV (For NPO) 1,000 MG in EMPTY BAG 1 BAG IVPB SCH (00:17)
[2019-07-21] MEDS: KETOROLAC 30 MG/ML 1 ML VIAL IVP SCH ×4 (00:17→17:11)
[2019-07-21] MEDS ORDERED: HYDROcodone/APAP 5-325MG 1 EACH TAB PO PRN (01:04)
[2019-07-21 02:22] LABS: Glucose,Whole Blood 203 mg/dL (75-99)
[2019-07-21 03:48] LABS: Glucose,Whole Blood 159 mg/dL (75-99)
[2019-07-21 05:07] LABS: Glucose,Whole Blood 116 mg/dL (75-99)
[2019-07-21] MEDS: HYDROcodone/APAP 5-325MG 1 EACH TAB PO PRN ×2 (05:27→15:48)
[2019-07-21 05:30] LABS: Basophils % (A) 0 %; Eosinophils % (A) 0 %; HCT 26.1 % (34.0-46.0); HGB 8.6 gm/dL (11.4-16.0); Lymphocytes % (A) 15 %; MCHC 33.2 g/dL (31.0-37.0); MCV 87.4 fL (80.0-100.0); Monocytes # (A) 0.3 k/uL (0-1.0); Monocytes % (A) 5 %; Neutrophils # (A) 5.3 k/uL (1.3-7.7); Neutrophils % (A) 78 %; Platelet Count 108 k/uL (150-450); RBC 2.98 m/uL (3.80-5.40); RDW 14.7 % (11.5-15.5); WBC 6.8 k/uL (3.8-10.6)
[2019-07-21 05:33] LABS: Ionized Calcium 4.7 mg/dL (4.5-5.3)
[2019-07-21 05:43] LABS: ALT 30 U/L (4-34); AST 55 U/L (14-36); African American GFR (CKD) >90 (>60 ml/min/1.73 sqM); Albumin 2.9 g/dL (3.5-5.0); Alkaline Phosphatase 28 U/L (38-126); Anion Gap 6 mmol/L; Blood Urea Nitrogen 13 mg/dL (7-17); Calcium 8.3 mg/dL (8.4-10.2); Carbon Dioxide 24 mmol/L (22-30); Chloride 105 mmol/L (98-107); Glucose 104 mg/dL (74-99); Magnesium 1.7 mg/dL (1.6-2.3); Non-African American GFR(CKD) >90 (>60 ml/min/1.73 sqM); Potassium 4.5 mmol/L (3.5-5.1); Sodium 135 mmol/L (137-145); Total Bilirubin 0.2 mg/dL (0.2-1.3)
[2019-07-21] MEDS: HEPARIN SODIUM,PORCINE 5,000 UNIT/ML 1 ML VIAL SQ SCH ×3 (06:23→21:10)
[2019-07-21] MEDS: MAGNESIUM SULFATE-D5W PMX 1 GM in DEXTROSE/WATER 1 100ML.BAG IVPB SCH ×2 (06:23→08:07)
[2019-07-21] MEDS: LEVOTHYROXINE 100 MCG TAB PO SCH (06:24)
[2019-07-21] MEDS: ALBUMIN HUMAN 5% 250 ML in EMPTY BAG 1 BAG IVPB PRN ×3 (06:28→12:17)
[2019-07-21 06:50] LABS: Glucose,Whole Blood 91 mg/dL (75-99)
--- NOTE | 2019-07-21 07:34 | XR ---
EXAMINATION TYPE: XR chest 1V portable DATE OF EXAM: 07/21/2019 COMPARISON: 07/20/2019 HISTORY: Follow-up after cardiac surgery TECHNIQUE: Single frontal view of the chest is obtained. FINDINGS: Enlarged cardiac mediastinal silhouette is seen with right-sided [place]-Jackeline catheter and me diastinal drains. Left-sided thoracostomy tube is similar in position. Endotracheal tube has been rem noe. No residual pneumothorax seen. Similar left basilar airspace disease and overall low lung volum es. IMPRESSION: Removal of the endotracheal tube. Left basilar airspace disease, probable atelectasis.
[2019-07-21 08:01] LABS: Glucose,Whole Blood 101 mg/dL (75-99)
[2019-07-21] MEDS: ASPIRIN 325 MG TAB PO SCH (08:06)
[2019-07-21] MEDS: METOPROLOL TARTRATE 25 MG TAB PO SCH ×2 (08:07→21:10)
[2019-07-21] MEDS: CLOPIDOGREL 75 MG TAB PO SCH (08:07)
[2019-07-21] MEDS: ATORVASTATIN 40 MG TAB PO SCH (08:07)
[2019-07-21] MEDS: IPRATROPIUM-ALBUTEROL 3 ML NEB INHALATION SCH ×4 (08:22→21:43)
[2019-07-21 08:53] LABS: Glucose,Whole Blood 181 mg/dL (75-99)
--- NOTE | 2019-07-21 08:57 | PN ---
PROGRESS NOTE Mrs. Varela is a 73-year-old female who presented with non ST-segment elevation myocardial infarction, underwent cardiac catheterization by Dr. Bernardino Truong at [facility] and was transferred to undergo coronary artery bypass grafting. She underwent surgery with [place] to LAD, saphenous vein graft to the right coronary artery. She is extubated, feels tired, she is in sinus mechanism. Hemodynamically, she is stable. She has no evidence of tachycardia or bradycardia. She continues to be at this time on aspirin once a day, Lipitor 40 mg daily and metoprolol tartrate 12.5 mg twice a day. Her right ventricular systolic function preoperatively was normal. PHYSICAL EXAMINATION: Blood pressure 113/60 with a heart rate in the 70s. LUNGS: With few crackles at the bases, no wheezes. HEART: Regular rate and rhythm. S1, S2. No S3. No rub. ABDOMEN: Soft and nontender. Positive bowel sounds. EXTREMITIES: No edema. LAB DATA: Revealed BUN and creatinine 13 and 0.6, hemoglobin of 8.6. Her chest x-ray revealed probable atelectasis. IMPRESSION: 1. Status post bypass grafting, stable. 2. Hypertension. 3. Hyperlipidemia. 4. Diabetes mellitus. RECOMMENDATION: From the cardiac standpoint, she is stable. Will continue incentive spirometry. Continue to increase her level of activity gradually. Adjust the dose of her beta gonzález and depending on her progress, further recommendation will be made. RIKI / TRUDY: [id number] /
[2019-07-21] MEDS ORDERED: MAGNESIUM HYDROXIDE 2,400 MG/10 ML CUP PO PRN (09:00)
[2019-07-21] MEDS ORDERED: PANTOPRAZOLE 40 MG/10 ML VIAL IVP SCH (09:00)
[2019-07-21] MEDS ORDERED: METOPROLOL TARTRATE 12.5 MG TAB PO SCH (09:00)
[2019-07-21] MEDS ORDERED: BISACODYL 10 MG SUPP RECTAL PRN (09:00)
--- NOTE | 2019-07-21 09:10 | P.PN ---
Subjective Progress Note Date: 07/21/19 Principal diagnosis: Coronary artery disease, non-STEMI this admission. Previous medical history of hypertension, hyperlipidemia, insulin dependent diabetes mellitus with preopera tive hemoglobin A1c 8.7%, severe lung disease with preoperative FEV1 41% of predicted hypothyroidism, anxiety, IBS, diverticulosis, GERD, previous social tobacco use, and family history of coronary artery disease POD #1 coronary bypass grafting 2 vessels, left internal mammary artery to the left anterior descending artery, reverse saphenous vein graft to the posterior descending artery, endoscopic harvesting of the right greater saphenous vein, epi-aortic ultrasound, intraoperative transesophageal echocardiogram, ligation of the left atrial appendage using 35 mm AtriClip Postoperative acute blood loss anemia, expected outcome of surgery given hemodilution and cardiopulmonary bypass pump The patient is currently sitting up in a recliner in no acute distress the intensive care unit eating breakfast. Was successfully extubated last night at 16:48. Does complain of postsurgical type pain which she states is controlled on current medication regimen. Denies shortness of breath. Her only complaint is sore throat from ET tube. Currently in sinus rhythm, remains hemodynamically stable on no inotropes or pressors. Mediastinal, left pleural chest tubes, Hiram/Cordis remain. No new concerns. Objective - Vital Signs Vital signs: Vital Signs Temp 99.1 F 07/21/19 04:00 Pulse 75 07/21/19 08:34 Resp 16 07/21/19 07:00 BP 113/63 07/21/19 07:00 Pulse Ox 98 07/21/19 07:00 Intake & Output 07/20/19 07/21/19 07/21/19 18:59 06:59 18:59 Intake Total 050.414 3426.055 108.903 Output Total 2307 606 20 Balance -1786.137 833.055 88.903 Weight 74.5 kg Intake: IV 78 1328 79 ACETAMINOPHEN IV (For NPO 100 ) 1,000 mg In Empty Bag 1 bag @ 400 mls/hr IVPB Q6HR SALLY Rx#:[id number] Albumin Human 5% 250 ml 250 In Empty Bag 1 bag @ 250 mls/hr IVPB Q1HR PRN Rx#: [id number] Lactated Ringers 1,000 ml 550 50 @ 50 mls/hr IV .Q20H SALLY Rx#:[id number] Normal Saline Pressure 45 108 9 Bag ceFAZolin 2 gm In Sodium 100 Chloride 0.9% 50 ml @ 100 mls/hr IVPB Q8H SALLY Rx#: [id number] co/ci 220 20 Intake, IV Titration 442.863 111.055 29.903 Amount ACETAMINOPHEN IV (For NPO 100 ) 1,000 mg In Empty Bag 1 bag @ 400 mls/hr IVPB Q6HR SALLY Rx#:[id number] Clevidipine Butyrate 25 69.400 30.334 mg In Empty Bag 1 bag @ 1 MG/HR 2 mls/hr IV .Q24H SALLY Rx#:[id number] Insulin Regular 100 unit 15.974 30.721 2.828 In Sodium Chloride 0.9% 100 ml @ Per Protocol IV .Q0M SALLY Rx#:[id number] Lactated Ringers 1,000 ml 200 50 @ 50 mls/hr IV .Q20H SALLY Rx#:[id number] Nitroglycerin-D5w Pmx 50 27.075 mg In Dextrose/Water 1 250ml.bag @ 5 MCG/MIN 1.5 mls/hr IV .Q24H SALLY Rx#: [id number] Propofol 1,000 mg In 7.489 Empty Bag 1 bag @ Titrate IV .Q0M SALLY Rx#: [id number] ceFAZolin 2 gm In Sodium 50 Chloride 0.9% 50 ml @ 100 mls/hr IVPB Q8H SALLY Rx#: [id number] Output: Chest Tube Drainage 187 256 10 Left Pleural 64 99 10 Mediastinal x2 123 157 0 Urine 1410 350 10 Oral Regurgitation 10 Estimated Blood Loss 700 Other: Voiding Method Indwelling Catheter ABP, PAP, CO, CI - Last Documented Arterial Blood Pressure 121/57 Pulmonary Artery Pressure 32/11 Cardiac Output 4.3 Cardiac Index 2.4 - Constitutional General appearance: Present: cooperative, no acute distress, obese - Respiratory Details: Lungs sounds diminished bilaterally. Respirations even, nonlabored. Currently on 2 L nasal cannula with oxygen saturation 98%. Able to achieve 1000 mL on her incentive spirometry. Strong cough. Mediastinal chest tube to continuous wall suction, 110 mL serosanguineous drainage overnight, 350 mL since surgery, positive intermittent air leak present with expiration. Left pleural chest tube to continuous wall suction, 82 mL serosanguineous drainage overnight, 120 mL since surgery, no air leak present. - Cardiovascular Details: S1, S2 present. Regular rate and rhythm, sinus rhythm on telemetry. Sternum stable. A/V epicardial pacemaker wires present, grounded. Palpable peripheral pulses bilaterally. No edema present. No calf pain or tenderness noted. Right internal jugular Hiram/Cordis present, last CO/CI 4.3/2.4 on no inotropes or pressors. Right radial arterial line was already discontinued this morning for nonfunctioning. Heart hugger in place with patient demonstrating appropriate use. Antiembolism stockings, SCDs present. - Gastrointestinal Gastrointestinal Comment(s): Abdomen soft, nontender, nondistended. Hypoactive bowel sounds present 4 quadrants. Tolerating clear liquids. Negative flatus. - Genitourinary Genitourinary Comment(s): Guzmán present draining clear, yellow urine. Output overnight 35-40 mL per hour, decreased this morning to 20 mL per hour. - Integumentary Integumentary Comment(s): Skin is warm and dry with evidence of good perfusion. Anterior chest incision well approximated and covered with dry intact dressing. Right lower extremity EVH site well approximated - Neurologic Neurologic: Present: CNII-XII intact - Musculoskeletal Musculoskeletal: Present: strength equal bilaterally - Psychiatric Psychiatric: Present: A&O x's 3, appropriate affect, intact judgment & insight - Allied health notes Allied health notes reviewed: nursing - Labs CBC & Chem 7: 07/21/19 05:10 07/21/19 05:10 Labs: Abnormal Lab Results - Last 24 Hours (Table) 07/19/19 07/20/19 07/20/19 Range/Units 10:52 08:56 10:18 RBC (3.80-5.40) m/uL Hgb (11.4-16.0) gm/dL Hct (34.0-46.0) % Plt Count (150-450) k/uL Neutrophils # (1.3-7.7) k/uL Lymphocytes # (1.0-4.8) k/uL ABG pH (7.35-7.45) ABG pCO2 (35-45) mmHg ABG pO2 172 H 204 H (83-108) mmHg ABG Total CO2 26 H 26 H (19-24) mmol/L ABG O2 Saturation 99.6 H 99.7 H (94-97) % ABG Hematocrit 33 L 30 L (34.0-46.0) % ABG Potassium (3.4-4.5) mmol/L ABG Ionized Calcium (4.5-5.3) mg/dL ABG Glucose 187 H 139 H (75-99) mg/dL ABG Lactic Acid 2.6 H* (0.5-1.6) mmol/L Hemoglobin 10.8 L 9.8 L (11.4-16.0) gm/dL Sodium (137-145) mmol/L Creatinine (0.52-1.04) mg/dL Glucose (74-99) mg/dL POC Glucose (mg/dL) (75-99) mg/dL Calcium (8.4-10.2) mg/dL AST (14-36) U/L Alkaline Phosphatase (38-126) U/L Total Protein (6.3-8.2) g/dL Albumin (3.5-5.0) g/dL Arterial Blood Potassium (3.4-4.5) mmol/L Arterial Blood Glucose 187 H 139 H (75-99) mg/dL Crossmatch See Detail 07/20/19 07/20/19 07/20/19 Range/Units 11:00 11:35 12:38 RBC (3.80-5.40) m/uL Hgb (11.4-16.0) gm/dL Hct (34.0-46.0) % Plt Count (150-450) k/uL Neutrophils # (1.3-7.7) k/uL Lymphocytes # (1.0-4.8) k/uL ABG pH (7.35-7.45) ABG pCO2 (35-45) mmHg ABG pO2 366 H 407 H 135 H (83-108) mmHg ABG Total CO2 25 H 26 H 26 H (19-24) mmol/L ABG O2 Saturation 100.0 H 100.0 H 99.1 H (94-97) % ABG Hematocrit 20 L* 22 L 24 L (34.0-46.0) % ABG Potassium 4.6 H (3.4-4.5) mmol/L ABG Ionized Calcium 4.4 L (4.5-5.3) mg/dL ABG Glucose 186 H 161 H (75-99) mg/dL ABG Lactic Acid 2.3 H* 2.4 H* 2.3 H* (0.5-1.6) mmol/L Hemoglobin 6.5 L* 7.2 L 7.9 L (11.4-16.0) gm/dL Sodium (137-145) mmol/L Creatinine (0.52-1.04) mg/dL Glucose (74-99) mg/dL POC Glucose (mg/dL) (75-99) mg/dL Calcium (8.4-10.2) mg/dL AST (14-36) U/L Alkaline Phosphatase (38-126) U/L Total Protein (6.3-8.2) g/dL Albumin (3.5-5.0) g/dL Arterial Blood Potassium 4.6 H (3.4-4.5) mmol/L Arterial Blood Glucose 186 H 161 H (75-99) mg/dL Crossmatch 07/20/19 07/20/19 07/20/19 Range/Units 13:28 13:47 13:48 RBC (3.80-5.40) m/uL Hgb (11.4-16.0) gm/dL Hct (34.0-46.0) % Plt Count (150-450) k/uL Neutrophils # (1.3-7.7) k/uL Lymphocytes # (1.0-4.8) k/uL ABG pH 7.31 L (7.35-7.45) ABG pCO2 49 H (35-45) mmHg ABG pO2 224 H (83-108) mmHg ABG Total CO2 26 H (19-24) mmol/L ABG O2 Saturation 99.6 H (94-97) % ABG Hematocrit (34.0-46.0) % ABG Potassium (3.4-4.5) mmol/L ABG Ionized Calcium (4.5-5.3) mg/dL ABG Glucose (75-99) mg/dL ABG Lactic Acid (0.5-1.6) mmol/L Hemoglobin (11.4-16.0) gm/dL Sodium (137-145) mmol/L Creatinine (0.52-1.04) mg/dL Glucose (74-99) mg/dL POC Glucose (mg/dL) 43 L 192 H (75-99) mg/dL Calcium (8.4-10.2) mg/dL AST (14-36) U/L Alkaline Phosphatase (38-126) U/L Total Protein (6.3-8.2) g/dL Albumin (3.5-5.0) g/dL Arterial Blood Potassium (3.4-4.5) mmol/L Arterial Blood Glucose (75-99) mg/dL Crossmatch 07/20/19 07/20/19 07/20/19 Range/Units 14:12 14:35 14:35 RBC 3.20 L (3.80-5.40) m/uL Hgb 9.1 L D (11.4-16.0) gm/dL Hct 27.9 L (34.0-46.0) % Plt Count 119 L (150-450) k/uL Neutrophils # (1.3-7.7) k/uL Lymphocytes # 0.8 L (1.0-4.8) k/uL ABG pH (7.35-7.45) ABG pCO2 (35-45) mmHg ABG pO2 (83-108) mmHg ABG Total CO2 (19-24) mmol/L ABG O2 Saturation (94-97) % ABG Hematocrit (34.0-46.0) % ABG Potassium (3.4-4.5) mmol/L ABG Ionized Calcium (4.5-5.3) mg/dL ABG Glucose (75-99) mg/dL ABG Lactic Acid (0.5-1.6) mmol/L Hemoglobin (11.4-16.0) gm/dL Sodium 136 L (137-145) mmol/L Creatinine 0.45 L (0.52-1.04) mg/dL Glucose 136 H (74-99) mg/dL POC Glucose (mg/dL) 114 H (75-99) mg/dL Calcium 8.2 L (8.4-10.2) mg/dL AST 57 H (14-36) U/L Alkaline Phosphatase 34 L (38-126) U/L Total Protein 5.1 L (6.3-8.2) g/dL Albumin 3.0 L (3.5-5.0) g/dL Arterial Blood Potassium (3.4-4.5) mmol/L Arterial Blood Glucose (75-99) mg/dL Crossmatch 07/20/19 07/20/19 07/20/19 Range/Units 15:13 16:08 16:10 RBC 3.24 L (3.80-5.40) m/uL Hgb 9.4 L (11.4-16.0) gm/dL Hct 28.2 L (34.0-46.0) % Plt Count 127 L (150-450) k/uL Neutrophils # (1.3-7.7) k/uL Lymphocytes # 0.7 L (1.0-4.8) k/uL ABG pH (7.35-7.45) ABG pCO2 (35-45) mmHg ABG pO2 (83-108) mmHg ABG Total CO2 (19-24) mmol/L ABG O2 Saturation (94-97) % ABG Hematocrit (34.0-46.0) % ABG Potassium (3.4-4.5) mmol/L ABG Ionized Calcium (4.5-5.3) mg/dL ABG Glucose (75-99) mg/dL ABG Lactic Acid (0.5-1.6) mmol/L Hemoglobin (11.4-16.0) gm/dL Sodium (137-145) mmol/L Creatinine (0.52-1.04) mg/dL Glucose (74-99) mg/dL POC Glucose (mg/dL) 192 H 246 H (75-99) mg/dL Calcium (8.4-10.2) mg/dL AST (14-36) U/L Alkaline Phosphatase (38-126) U/L Total Protein (6.3-8.2) g/dL Albumin (3.5-5.0) g/dL Arterial Blood Potassium (3.4-4.5) mmol/L Arterial Blood Glucose (75-99) mg/dL Crossmatch 07/20/19 07/20/19 07/20/19 Range/Units 16:30 17:14 18:15 RBC (3.80-5.40) m/uL Hgb (11.4-16.0) gm/dL Hct (34.0-46.0) % Plt Count (150-450) k/uL Neutrophils # (1.3-7.7) k/uL Lymphocytes # (1.0-4.8) k/uL ABG pH (7.35-7.45) ABG pCO2 (35-45) mmHg ABG pO2 (83-108) mmHg ABG Total CO2 (19-24) mmol/L ABG O2 Saturation 97.3 H (94-97) % ABG Hematocrit (34.0-46.0) % ABG Potassium (3.4-4.5) mmol/L ABG Ionized Calcium (4.5-5.3) mg/dL ABG Glucose (75-99) mg/dL ABG Lactic Acid (0.5-1.6) mmol/L Hemoglobin (11.4-16.0) gm/dL Sodium (137-145) mmol/L Creatinine (0.52-1.04) mg/dL Glucose (74-99) mg/dL POC Glucose (mg/dL) 266 H 244 H (75-99) mg/dL Calcium (8.4-10.2) mg/dL AST (14-36) U/L Alkaline Phosphatase (38-126) U/L Total Protein (6.3-8.2) g/dL Albumin (3.5-5.0) g/dL Arterial Blood Potassium (3.4-4.5) mmol/L Arterial Blood Glucose (75-99) mg/dL Crossmatch 07/20/19 07/20/19 07/20/19 Range/Units 19:00 19:03 20:01 RBC 3.25 L (3.80-5.40) m/uL Hgb 9.5 L (11.4-16.0) gm/dL Hct 28.5 L (34.0-46.0) % Plt Count 122 L (150-450) k/uL Neutrophils # 8.1 H (1.3-7.7) k/uL Lymphocytes # 0.7 L (1.0-4.8) k/uL ABG pH (7.35-7.45) ABG pCO2 (35-45) mmHg ABG pO2 (83-108) mmHg ABG Total CO2 (19-24) mmol/L ABG O2 Saturation (94-97) % ABG Hematocrit (34.0-46.0) % ABG Potassium (3.4-4.5) mmol/L ABG Ionized Calcium (4.5-5.3) mg/dL ABG Glucose (75-99) mg/dL ABG Lactic Acid (0.5-1.6) mmol/L Hemoglobin (11.4-16.0) gm/dL Sodium (137-145) mmol/L Creatinine (0.52-1.04) mg/dL Glucose (74-99) mg/dL POC Glucose (mg/dL) 207 H 186 H (75-99) mg/dL Calcium (8.4-10.2) mg/dL AST (14-36) U/L Alkaline Phosphatase (38-126) U/L Total Protein (6.3-8.2) g/dL Albumin (3.5-5.0) g/dL Arterial Blood Potassium (3.4-4.5) mmol/L Arterial Blood Glucose (75-99) mg/dL Crossmatch 07/20/19 07/20/19 07/20/19 Range/Units 21:05 22:22 23:19 RBC (3.80-5.40) m/uL Hgb (11.4-16.0) gm/dL Hct (34.0-46.0) % Plt Count (150-450) k/uL Neutrophils # (1.3-7.7) k/uL Lymphocytes # (1.0-4.8) k/uL ABG pH (7.35-7.45) ABG pCO2 (35-45) mmHg ABG pO2 (83-108) mmHg ABG Total CO2 (19-24) mmol/L ABG O2 Saturation (94-97) % ABG Hematocrit (34.0-46.0) % ABG Potassium (3.4-4.5) mmol/L ABG Ionized Calcium (4.5-5.3) mg/dL ABG Glucose (75-99) mg/dL ABG Lactic Acid (0.5-1.6) mmol/L Hemoglobin (11.4-16.0) gm/dL Sodium (137-145) mmol/L Creatinine (0.52-1.04) mg/dL Glucose (74-99) mg/dL POC Glucose (mg/dL) 141 H 116 H 111 H (75-99) mg/dL Calcium (8.4-10.2) mg/dL AST (14-36) U/L Alkaline Phosphatase (38-126) U/L Total Protein (6.3-8.2) g/dL Albumin (3.5-5.0) g/dL Arterial Blood Potassium (3.4-4.5) mmol/L Arterial Blood Glucose (75-99) mg/dL Crossmatch 07/21/19 07/21/19 07/21/19 Range/Units 00:05 02:21 03:45 RBC (3.80-5.40) m/uL Hgb (11.4-16.0) gm/dL Hct (34.0-46.0) % Plt Count (150-450) k/uL Neutrophils # (1.3-7.7) k/uL Lymphocytes # (1.0-4.8) k/uL ABG pH (7.35-7.45) ABG pCO2 (35-45) mmHg ABG pO2 (83-108) mmHg ABG Total CO2 (19-24) mmol/L ABG O2 Saturation (94-97) % ABG Hematocrit (34.0-46.0) % ABG Potassium (3.4-4.5) mmol/L ABG Ionized Calcium (4.5-5.3) mg/dL ABG Glucose (75-99) mg/dL ABG Lactic Acid (0.5-1.6) mmol/L Hemoglobin (11.4-16.0) gm/dL Sodium (137-145) mmol/L Creatinine (0.52-1.04) mg/dL Glucose (74-99) mg/dL POC Glucose (mg/dL) 118 H 203 H 159 H (75-99) mg/dL Calcium (8.4-10.2) mg/dL AST (14-36) U/L Alkaline Phosphatase (38-126) U/L Total Protein (6.3-8.2) g/dL Albumin (3.5-5.0) g/dL Arterial Blood Potassium (3.4-4.5) mmol/L Arterial Blood Glucose (75-99) mg/dL Crossmatch 07/21/19 07/21/19 07/21/19 Range/Units 05:05 05:10 05:10 RBC 2.98 L (3.80-5.40) m/uL Hgb 8.6 L (11.4-16.0) gm/dL Hct 26.1 L (34.0-46.0) % Plt Count 108 L (150-450) k/uL Neutrophils # (1.3-7.7) k/uL Lymphocytes # (1.0-4.8) k/uL ABG pH (7.35-7.45) ABG pCO2 (35-45) mmHg ABG pO2 (83-108) mmHg ABG Total CO2 (19-24) mmol/L ABG O2 Saturation (94-97) % ABG Hematocrit (34.0-46.0) % ABG Potassium (3.4-4.5) mmol/L ABG Ionized Calcium (4.5-5.3) mg/dL ABG Glucose (75-99) mg/dL ABG Lactic Acid (0.5-1.6) mmol/L Hemoglobin (11.4-16.0) gm/dL Sodium 135 L (137-145) mmol/L Creatinine (0.52-1.04) mg/dL Glucose 104 H (74-99) mg/dL POC Glucose (mg/dL) 116 H (75-99) mg/dL Calcium 8.3 L (8.4-10.2) mg/dL AST 55 H (14-36) U/L Alkaline Phosphatase 28 L (38-126) U/L Total Protein 5.0 L (6.3-8.2) g/dL Albumin 2.9 L (3.5-5.0) g/dL Arterial Blood Potassium (3.4-4.5) mmol/L Arterial Blood Glucose (75-99) mg/dL Crossmatch 07/21/19 Range/Units 08:00 RBC (3.80-5.40) m/uL Hgb (11.4-16.0) gm/dL Hct (34.0-46.0) % Plt Count (150-450) k/uL Neutrophils # (1.3-7.7) k/uL Lymphocytes # (1.0-4.8) k/uL ABG pH (7.35-7.45) ABG pCO2 (35-45) mmHg ABG pO2 (83-108) mmHg ABG Total CO2 (19-24) mmol/L ABG O2 Saturation (94-97) % ABG Hematocrit (34.0-46.0) % ABG Potassium (3.4-4.5) mmol/L ABG Ionized Calcium (4.5-5.3) mg/dL ABG Glucose (75-99) mg/dL ABG Lactic Acid (0.5-1.6) mmol/L Hemoglobin (11.4-16.0) gm/dL Sodium (137-145) mmol/L Creatinine (0.52-1.04) mg/dL Glucose (74-99) mg/dL POC Glucose (mg/dL) 101 H (75-99) mg/dL Calcium (8.4-10.2) mg/dL AST (14-36) U/L Alkaline Phosphatase (38-126) U/L Total Protein (6.3-8.2) g/dL Albumin (3.5-5.0) g/dL Arterial Blood Potassium (3.4-4.5) mmol/L Arterial Blood Glucose (75-99) mg/dL Crossmatch - Imaging and Cardiology Chest x-ray: report reviewed, image reviewed Assessment and Plan Assessment: 1. Severe coronary artery disease, non-STEMI this admission, status post 2 vessel CABG 2. Hypertension 3. Hyperlipidemia 4. Hypothyroidism 5. Insulin dependent diabetes mellitus with preoperative hemoglobin A1c 8.7% 6. Severe lung disease with preoperative FEV1 41% protected 7. Anxiety 8. IBS, diverticulosis 9. Anxiety/depression 10. GERD 11. Previous social smoker 12. Family history of heart disease 13. Postoperative acute blood loss anemia Plan: 1. Continue to maximize medical therapy with aspirin, Plavix, statin, beta gonzález therapy. Will increase beta gonzález therapy as tolerated. 2. Wean O2 as tolerated. Encourage incentive spirometry use 10 times every hour while awake 3. Increased activity as tolerated. PT/OT/cardiac rehab following 4. Will monitor daily labs and x-rays. Electrolyte replacement per protocol. No transfusion 5. Pain control current medication regimen. 6. Insulin management per primary care service 7. GI/DVT prophylaxis 8. Discontinue Hiram. Connect Cordis to continue CVP monitoring 9. Keep mediastinal, left pleural chest tube for another 24 hours 10. Keep Guzmán for another 24 hours for strict accurate intake and output 11. More recommendations to follow Time with Patient: Greater than 30
[2019-07-21 09:54] LABS: Glucose,Whole Blood 219 mg/dL (75-99)
[2019-07-21] MEDS: MUPIROCIN 2% OINT 22 GM TUBE NASAL SCH ×2 (10:00→21:10)
--- NOTE | 2019-07-21 10:40 | P.PN ---
Subjective Progress Note Date: 07/21/19 On today's evaluation of 07/20/2019 the patient is being seen in intensive care unit following bypass surgery. The patient underwent W[place] to LAD and SVG to PDA along with left atrial appendage clipping. Postop, the patient was brought into the intensive care unit. Chest x-ray showed adequate positioning of the ET tube. Lungs are well expanded and there was no evidence of any pneumothorax. The patient has a mediastinal and left pleural chest tube. There are 2 mediastinal chest tubes for now. Overall output from the fumes have been minimal, as the patient is producing 50 mL from the mediastinal chest tube and 100 mL from the pleural chest tube. The cardiac output is 6.7 with an index of 3.8. Pulmonary artery pressures are 37/20. The patient was gradually weaned off the mechanical ventilator. I was able to give this patient spontaneous breathing trial with a pressure support of 5 and a PEEP of 5 for a total of 30 minutes. The blood gases was obtained at the end of the breathing trial showed a pH of 7.37 with a pCO2 of 40 and pO2 of 89. The weaning parameters were all adequate. Based on that, the patient was extubated. Currently she is still drowsy and sleepy. She is on oxygen at 4 L per minute nasal cannula. Her cardiac rhythm is sinus and the low 80s. She is producing adequate amount of urine output. Blood pressure is elevated and the patient is currently a on a combination of Cleviprex 6 mg/h and nitroglycerin at 5 g per KG per minute. Urine output is nor that of 30 mL an hour. The patient is on insulin drip at 7 units an hour. She is moving all 4 extremities and she is calm and comfortable to. Sternum is dry clean and intact. No other significant events otherwise for now. On today's evaluation of 07/21/2019 and seen For a Follow-Up. She Did Extremely Well. I Was Able to Extubate Her around 6 PM Yesterday without Any Major Difficulties. Currently She Is on Oxygen at 4 L Per Minute Nasal Cannula. This Was Further weaned down to 2 L per minute. Her chest x-ray shows some mild pulmonary vascular congestion. She did have some low urine output. She was given albumin 250 mL yesterday afternoon and overnight she received another 500. Her urine output is improved as is being my monitored. The most recent cardiac output was 4.3 with an index of 2.4. The Robeline-Jackeline catheter has been removed. The chest tubes are essentially dry. There is no evidence of any air leak at this point in time. No major swelling lower extremities. Sternum stable clean and intact. The right IJ cordis is still in place. No cardiac arrhythmias. The cardiac rhythm is sinus. She is on insulin 4.5 units an hour. She is using incentive spirometer and she is pulling approximately 500. She is taking full liquid diet including popsicles and Jell-O's. Objective - Vital Signs Vital signs: Vital Signs Temp 98.2 F 07/21/19 08:00 Pulse 74 07/21/19 10:00 Resp 22 07/21/19 10:00 BP 122/75 07/21/19 10:00 Pulse Ox 96 07/21/19 10:00 Intake & Output 07/20/19 07/21/19 07/21/19 18:59 06:59 18:59 Intake Total 363.992 5584.055 276.903 Output Total 2307 606 91 Balance -1786.137 833.055 185.903 Weight 74.5 kg Intake: IV 78 1328 247 ACETAMINOPHEN IV (For NPO 100 ) 1,000 mg In Empty Bag 1 bag @ 400 mls/hr IVPB Q6HR SALLY Rx#:[id number] Albumin Human 5% 250 ml 250 In Empty Bag 1 bag @ 250 mls/hr IVPB Q1HR PRN Rx#: [id number] Lactated Ringers 1,000 ml 550 150 @ 20 mls/hr IV .Q24H SALLY Rx#:[id number] Normal Saline Pressure 45 108 27 Bag ceFAZolin 2 gm In Sodium 100 50 Chloride 0.9% 50 ml @ 100 mls/hr IVPB Q8H SALLY Rx#: [id number] co/ci 220 20 Intake, IV Titration 442.863 111.055 29.903 Amount ACETAMINOPHEN IV (For NPO 100 ) 1,000 mg In Empty Bag 1 bag @ 400 mls/hr IVPB Q6HR SALLY Rx#:[id number] Clevidipine Butyrate 25 69.400 30.334 mg In Empty Bag 1 bag @ 1 MG/HR 2 mls/hr IV .Q24H SALLY Rx#:[id number] Insulin Regular 100 unit 15.974 30.721 2.828 In Sodium Chloride 0.9% 100 ml @ Per Protocol IV .Q0M SALLY Rx#:[id number] Lactated Ringers 1,000 ml 200 50 @ 20 mls/hr IV .Q24H SALLY Rx#:[id number] Nitroglycerin-D5w Pmx 50 27.075 mg In Dextrose/Water 1 250ml.bag @ 5 MCG/MIN 1.5 mls/hr IV .Q24H SALLY Rx#: [id number] Propofol 1,000 mg In 7.489 Empty Bag 1 bag @ Titrate IV .Q0M SALLY Rx#: [id number] ceFAZolin 2 gm In Sodium 50 Chloride 0.9% 50 ml @ 100 mls/hr IVPB Q8H SALLY Rx#: [id number] Output: Chest Tube Drainage 187 256 50 Left Pleural 64 99 10 Mediastinal x2 123 157 40 Urine 1410 350 41 Oral Regurgitation 10 Estimated Blood Loss 700 Other: Voiding Method Indwelling Catheter Indwelling Catheter ABP, PAP, CO, CI - Last Documented Arterial Blood Pressure 121/57 Pulmonary Artery Pressure 48/25 Cardiac Output 4.3 Cardiac Index 2.4 - Exam Gen. appearance the patient is awake and alert on 2 L of oxygen by nasal cannula. Head exam was generally normal. There was no scleral icterus or corneal arcus. Mucous membranes were moist. Neck was supple and without jugular venous distension, thyromegaly, or carotid bruits. Carotids were easily palpable bilaterally. There was no adenopathy. The upper lip is slightly swollen compared to the lower lip. The patient has a right IJ cordis is in place and the Robeline-Jackeline catheter has been removed. Exit site is dry clean and intact. Lungs sounds are diminished in lung bases bilaterally. Cardiac exam revealed the PMI to be normally situated and sized. The rhythm was regular and no extrasystoles were noted during several minutes of auscultation. The first and second heart sounds were normal and physiologic splitting of the second heart sound was noted. There were no murmurs, rubs, clicks, or gallops. There is a cardiac rub heard over the precordium. Sternum stable clean and intact. The patient has 2 mediastinal and 1 pleural chest tube. Abdominal exam revealed normal bowel sounds. The abdomen was soft, non-tender, and without masses, organomegaly, or appreciable enlargement of the abdominal aorta. Examination of the extremities revealed easily palpable radial, femoral and pedal pulses. There was no cyanosis, clubbing or edema. Examination of the skin revealed no evidence of significant rashes, suspicious appearing nevi or other concerning lesions. Neurologically she is awake and alert and there is no focal neurological deficit - Labs CBC & Chem 7: 07/21/19 05:10 07/21/19 05:10 Labs: Abnormal Lab Results - Last 24 Hours (Table) 07/19/19 07/20/19 07/20/19 Range/Units 10:52 08:56 10:18 RBC (3.80-5.40) m/uL Hgb (11.4-16.0) gm/dL Hct (34.0-46.0) % Plt Count (150-450) k/uL Neutrophils # (1.3-7.7) k/uL Lymphocytes # (1.0-4.8) k/uL ABG pH (7.35-7.45) ABG pCO2 (35-45) mmHg ABG pO2 172 H 204 H (83-108) mmHg ABG Total CO2 26 H 26 H (19-24) mmol/L ABG O2 Saturation 99.6 H 99.7 H (94-97) % ABG Hematocrit 33 L 30 L (34.0-46.0) % ABG Potassium (3.4-4.5) mmol/L ABG Ionized Calcium (4.5-5.3) mg/dL ABG Glucose 187 H 139 H (75-99) mg/dL ABG Lactic Acid 2.6 H* (0.5-1.6) mmol/L Hemoglobin 10.8 L 9.8 L (11.4-16.0) gm/dL Sodium (137-145) mmol/L Creatinine (0.52-1.04) mg/dL Glucose (74-99) mg/dL POC Glucose (mg/dL) (75-99) mg/dL Calcium (8.4-10.2) mg/dL AST (14-36) U/L Alkaline Phosphatase (38-126) U/L Total Protein (6.3-8.2) g/dL Albumin (3.5-5.0) g/dL Arterial Blood Potassium (3.4-4.5) mmol/L Arterial Blood Glucose 187 H 139 H (75-99) mg/dL Crossmatch See Detail 07/20/19 07/20/19 07/20/19 Range/Units 11:00 11:35 12:38 RBC (3.80-5.40) m/uL Hgb (11.4-16.0) gm/dL Hct (34.0-46.0) % Plt Count (150-450) k/uL Neutrophils # (1.3-7.7) k/uL Lymphocytes # (1.0-4.8) k/uL ABG pH (7.35-7.45) ABG pCO2 (35-45) mmHg ABG pO2 366 H 407 H 135 H (83-108) mmHg ABG Total CO2 25 H 26 H 26 H (19-24) mmol/L ABG O2 Saturation 100.0 H 100.0 H 99.1 H (94-97) % ABG Hematocrit 20 L* 22 L 24 L (34.0-46.0) % ABG Potassium 4.6 H (3.4-4.5) mmol/L ABG Ionized Calcium 4.4 L (4.5-5.3) mg/dL ABG Glucose 186 H 161 H (75-99) mg/dL ABG Lactic Acid 2.3 H* 2.4 H* 2.3 H* (0.5-1.6) mmol/L Hemoglobin 6.5 L* 7.2 L 7.9 L (11.4-16.0) gm/dL Sodium (137-145) mmol/L Creatinine (0.52-1.04) mg/dL Glucose (74-99) mg/dL POC Glucose (mg/dL) (75-99) mg/dL Calcium (8.4-10.2) mg/dL AST (14-36) U/L Alkaline Phosphatase (38-126) U/L Total Protein (6.3-8.2) g/dL Albumin (3.5-5.0) g/dL Arterial Blood Potassium 4.6 H (3.4-4.5) mmol/L Arterial Blood Glucose 186 H 161 H (75-99) mg/dL Crossmatch 07/20/19 07/20/19 07/20/19 Range/Units 13:28 13:47 13:48 RBC (3.80-5.40) m/uL Hgb (11.4-16.0) gm/dL Hct (34.0-46.0) % Plt Count (150-450) k/uL Neutrophils # (1.3-7.7) k/uL Lymphocytes # (1.0-4.8) k/uL ABG pH 7.31 L (7.35-7.45) ABG pCO2 49 H (35-45) mmHg ABG pO2 224 H (83-108) mmHg ABG Total CO2 26 H (19-24) mmol/L ABG O2 Saturation 99.6 H (94-97) % ABG Hematocrit (34.0-46.0) % ABG Potassium (3.4-4.5) mmol/L ABG Ionized Calcium (4.5-5.3) mg/dL ABG Glucose (75-99) mg/dL ABG Lactic Acid (0.5-1.6) mmol/L Hemoglobin (11.4-16.0) gm/dL Sodium (137-145) mmol/L Creatinine (0.52-1.04) mg/dL Glucose (74-99) mg/dL POC Glucose (mg/dL) 43 L 192 H (75-99) mg/dL Calcium (8.4-10.2) mg/dL AST (14-36) U/L Alkaline Phosphatase (38-126) U/L Total Protein (6.3-8.2) g/dL Albumin (3.5-5.0) g/dL Arterial Blood Potassium (3.4-4.5) mmol/L Arterial Blood Glucose (75-99) mg/dL Crossmatch 07/20/19 07/20/19 07/20/19 Range/Units 14:12 14:35 14:35 RBC 3.20 L (3.80-5.40) m/uL Hgb 9.1 L D (11.4-16.0) gm/dL Hct 27.9 L (34.0-46.0) % Plt Count 119 L (150-450) k/uL Neutrophils # (1.3-7.7) k/uL Lymphocytes # 0.8 L (1.0-4.8) k/uL ABG pH (7.35-7.45) ABG pCO2 (35-45) mmHg ABG pO2 (83-108) mmHg ABG Total CO2 (19-24) mmol/L ABG O2 Saturation (94-97) % ABG Hematocrit (34.0-46.0) % ABG Potassium (3.4-4.5) mmol/L ABG Ionized Calcium (4.5-5.3) mg/dL ABG Glucose (75-99) mg/dL ABG Lactic Acid (0.5-1.6) mmol/L Hemoglobin (11.4-16.0) gm/dL Sodium 136 L (137-145) mmol/L Creatinine 0.45 L (0.52-1.04) mg/dL Glucose 136 H (74-99) mg/dL POC Glucose (mg/dL) 114 H (75-99) mg/dL Calcium 8.2 L (8.4-10.2) mg/dL AST 57 H (14-36) U/L Alkaline Phosphatase 34 L (38-126) U/L Total Protein 5.1 L (6.3-8.2) g/dL Albumin 3.0 L (3.5-5.0) g/dL Arterial Blood Potassium (3.4-4.5) mmol/L Arterial Blood Glucose (75-99) mg/dL Crossmatch 07/20/19 07/20/19 07/20/19 Range/Units 15:13 16:08 16:10 RBC 3.24 L (3.80-5.40) m/uL Hgb 9.4 L (11.4-16.0) gm/dL Hct 28.2 L (34.0-46.0) % Plt Count 127 L (150-450) k/uL Neutrophils # (1.3-7.7) k/uL Lymphocytes # 0.7 L (1.0-4.8) k/uL ABG pH (7.35-7.45) ABG pCO2 (35-45) mmHg ABG pO2 (83-108) mmHg ABG Total CO2 (19-24) mmol/L ABG O2 Saturation (94-97) % ABG Hematocrit (34.0-46.0) % ABG Potassium (3.4-4.5) mmol/L ABG Ionized Calcium (4.5-5.3) mg/dL ABG Glucose (75-99) mg/dL ABG Lactic Acid (0.5-1.6) mmol/L Hemoglobin (11.4-16.0) gm/dL Sodium (137-145) mmol/L Creatinine (0.52-1.04) mg/dL Glucose (74-99) mg/dL POC Glucose (mg/dL) 192 H 246 H (75-99) mg/dL Calcium (8.4-10.2) mg/dL AST (14-36) U/L Alkaline Phosphatase (38-126) U/L Total Protein (6.3-8.2) g/dL Albumin (3.5-5.0) g/dL Arterial Blood Potassium (3.4-4.5) mmol/L Arterial Blood Glucose (75-99) mg/dL Crossmatch 07/20/19 07/20/19 07/20/19 Range/Units 16:30 17:14 18:15 RBC (3.80-5.40) m/uL Hgb (11.4-16.0) gm/dL Hct (34.0-46.0) % Plt Count (150-450) k/uL Neutrophils # (1.3-7.7) k/uL Lymphocytes # (1.0-4.8) k/uL ABG pH (7.35-7.45) ABG pCO2 (35-45) mmHg ABG pO2 (83-108) mmHg ABG Total CO2 (19-24) mmol/L ABG O2 Saturation 97.3 H (94-97) % ABG Hematocrit (34.0-46.0) % ABG Potassium (3.4-4.5) mmol/L ABG Ionized Calcium (4.5-5.3) mg/dL ABG Glucose (75-99) mg/dL ABG Lactic Acid (0.5-1.6) mmol/L Hemoglobin (11.4-16.0) gm/dL Sodium (137-145) mmol/L Creatinine (0.52-1.04) mg/dL Glucose (74-99) mg/dL POC Glucose (mg/dL) 266 H 244 H (75-99) mg/dL Calcium (8.4-10.2) mg/dL AST (14-36) U/L Alkaline Phosphatase (38-126) U/L Total Protein (6.3-8.2) g/dL Albumin (3.5-5.0) g/dL Arterial Blood Potassium (3.4-4.5) mmol/L Arterial Blood Glucose (75-99) mg/dL Crossmatch 07/20/19 07/20/19 07/20/19 Range/Units 19:00 19:03 20:01 RBC 3.25 L (3.80-5.40) m/uL Hgb 9.5 L (11.4-16.0) gm/dL Hct 28.5 L (34.0-46.0) % Plt Count 122 L (150-450) k/uL Neutrophils # 8.1 H (1.3-7.7) k/uL Lymphocytes # 0.7 L (1.0-4.8) k/uL ABG pH (7.35-7.45) ABG pCO2 (35-45) mmHg ABG pO2 (83-108) mmHg ABG Total CO2 (19-24) mmol/L ABG O2 Saturation (94-97) % ABG Hematocrit (34.0-46.0) % ABG Potassium (3.4-4.5) mmol/L ABG Ionized Calcium (4.5-5.3) mg/dL ABG Glucose (75-99) mg/dL ABG Lactic Acid (0.5-1.6) mmol/L Hemoglobin (11.4-16.0) gm/dL Sodium (137-145) mmol/L Creatinine (0.52-1.04) mg/dL Glucose (74-99) mg/dL POC Glucose (mg/dL) 207 H 186 H (75-99) mg/dL Calcium (8.4-10.2) mg/dL AST (14-36) U/L Alkaline Phosphatase (38-126) U/L Total Protein (6.3-8.2) g/dL Albumin (3.5-5.0) g/dL Arterial Blood Potassium (3.4-4.5) mmol/L Arterial Blood Glucose (75-99) mg/dL Crossmatch 07/20/19 07/20/19 07/20/19 Range/Units 21:05 22:22 23:19 RBC (3.80-5.40) m/uL Hgb (11.4-16.0) gm/dL Hct (34.0-46.0) % Plt Count (150-450) k/uL Neutrophils # (1.3-7.7) k/uL Lymphocytes # (1.0-4.8) k/uL ABG pH (7.35-7.45) ABG pCO2 (35-45) mmHg ABG pO2 (83-108) mmHg ABG Total CO2 (19-24) mmol/L ABG O2 Saturation (94-97) % ABG Hematocrit (34.0-46.0) % ABG Potassium (3.4-4.5) mmol/L ABG Ionized Calcium (4.5-5.3) mg/dL ABG Glucose (75-99) mg/dL ABG Lactic Acid (0.5-1.6) mmol/L Hemoglobin (11.4-16.0) gm/dL Sodium (137-145) mmol/L Creatinine (0.52-1.04) mg/dL Glucose (74-99) mg/dL POC Glucose (mg/dL) 141 H 116 H 111 H (75-99) mg/dL Calcium (8.4-10.2) mg/dL AST (14-36) U/L Alkaline Phosphatase (38-126) U/L Total Protein (6.3-8.2) g/dL Albumin (3.5-5.0) g/dL Arterial Blood Potassium (3.4-4.5) mmol/L Arterial Blood Glucose (75-99) mg/dL Crossmatch 07/21/19 07/21/19 07/21/19 Range/Units 00:05 02:21 03:45 RBC (3.80-5.40) m/uL Hgb (11.4-16.0) gm/dL Hct (34.0-46.0) % Plt Count (150-450) k/uL Neutrophils # (1.3-7.7) k/uL Lymphocytes # (1.0-4.8) k/uL ABG pH (7.35-7.45) ABG pCO2 (35-45) mmHg ABG pO2 (83-108) mmHg ABG Total CO2 (19-24) mmol/L ABG O2 Saturation (94-97) % ABG Hematocrit (34.0-46.0) % ABG Potassium (3.4-4.5) mmol/L ABG Ionized Calcium (4.5-5.3) mg/dL ABG Glucose (75-99) mg/dL ABG Lactic Acid (0.5-1.6) mmol/L Hemoglobin (11.4-16.0) gm/dL Sodium (137-145) mmol/L Creatinine (0.52-1.04) mg/dL Glucose (74-99) mg/dL POC Glucose (mg/dL) 118 H 203 H 159 H (75-99) mg/dL Calcium (8.4-10.2) mg/dL AST (14-36) U/L Alkaline Phosphatase (38-126) U/L Total Protein (6.3-8.2) g/dL Albumin (3.5-5.0) g/dL Arterial Blood Potassium (3.4-4.5) mmol/L Arterial Blood Glucose (75-99) mg/dL Crossmatch 07/21/19 07/21/19 07/21/19 Range/Units 05:05 05:10 05:10 RBC 2.98 L (3.80-5.40) m/uL Hgb 8.6 L (11.4-16.0) gm/dL Hct 26.1 L (34.0-46.0) % Plt Count 108 L (150-450) k/uL Neutrophils # (1.3-7.7) k/uL Lymphocytes # (1.0-4.8) k/uL ABG pH (7.35-7.45) ABG pCO2 (35-45) mmHg ABG pO2 (83-108) mmHg ABG Total CO2 (19-24) mmol/L ABG O2 Saturation (94-97) % ABG Hematocrit (34.0-46.0) % ABG Potassium (3.4-4.5) mmol/L ABG Ionized Calcium (4.5-5.3) mg/dL ABG Glucose (75-99) mg/dL ABG Lactic Acid (0.5-1.6) mmol/L Hemoglobin (11.4-16.0) gm/dL Sodium 135 L (137-145) mmol/L Creatinine (0.52-1.04) mg/dL Glucose 104 H (74-99) mg/dL POC Glucose (mg/dL) 116 H (75-99) mg/dL Calcium 8.3 L (8.4-10.2) mg/dL AST 55 H (14-36) U/L Alkaline Phosphatase 28 L (38-126) U/L Total Protein 5.0 L (6.3-8.2) g/dL Albumin 2.9 L (3.5-5.0) g/dL Arterial Blood Potassium (3.4-4.5) mmol/L Arterial Blood Glucose (75-99) mg/dL Crossmatch 07/21/19 07/21/19 07/21/19 Range/Units 08:00 08:52 09:53 RBC (3.80-5.40) m/uL Hgb (11.4-16.0) gm/dL Hct (34.0-46.0) % Plt Count (150-450) k/uL Neutrophils # (1.3-7.7) k/uL Lymphocytes # (1.0-4.8) k/uL ABG pH (7.35-7.45) ABG pCO2 (35-45) mmHg ABG pO2 (83-108) mmHg ABG Total CO2 (19-24) mmol/L ABG O2 Saturation (94-97) % ABG Hematocrit (34.0-46.0) % ABG Potassium (3.4-4.5) mmol/L ABG Ionized Calcium (4.5-5.3) mg/dL ABG Glucose (75-99) mg/dL ABG Lactic Acid (0.5-1.6) mmol/L Hemoglobin (11.4-16.0) gm/dL Sodium (137-145) mmol/L Creatinine (0.52-1.04) mg/dL Glucose (74-99) mg/dL POC Glucose (mg/dL) 101 H 181 H 219 H (75-99) mg/dL Calcium (8.4-10.2) mg/dL AST (14-36) U/L Alkaline Phosphatase (38-126) U/L Total Protein (6.3-8.2) g/dL Albumin (3.5-5.0) g/dL Arterial Blood Potassium (3.4-4.5) mmol/L Arterial Blood Glucose (75-99) mg/dL Crossmatch Assessment and Plan Plan: 1 multivessel coronary artery disease post bypass surgery. The patient was having angina on outpatient basis. She was quite symptomatic. The patient underwent cardiac catheterization and subsequently she was brought in to undergo coronary artery bypass surgery. She is currently postop day #1. The patient is currently extubated. She is post thoracotomy. Chest tubes are all in place. She was weaned off the mechanical ventilator and she was extubated without any major difficulties currently on 2 L of oxygen by nasal cannula. Hemodynamically stable. The chest x-ray from today shows mild pulmonary vessel congestion. Chest tubes are in place. She'll be given Lasix once a blood pressure further stabilizes. She was given IV albumin for low urine output overnight. 2. Acute non-ST elevated myocardial infarction 3. COPD, FEV1 of 41% predicted according to the bedside spirometry, the patient is currently using incentive spirometer 4. Hypertension, current BP is under better control 5. Hypothyroidism 6. Hyperlipidemia 7. Insulin-dependent diabetes mellitus, currently on insulin drip for blood sugar control 8. Anxiety 9. IBS, diverticulosis 10. Former smoker 11. GERD/reflux Plan Encouraged use of incentive spirometer. Insulin monitor the chest tubes monitor the output from the chest tube drip for blood sugar control Monitor hemodynamics Monitor chest tube output Monitor urine output Bronchodilators We'll set that up on a chair and would ambulate. Possible chest tube removal depending and output Very successful results for now and she is recovering very well. We'll continue to follow.
[2019-07-21 10:58] LABS: Glucose,Whole Blood 182 mg/dL (75-99)
[2019-07-21 11:48] LABS: Glucose,Whole Blood 169 mg/dL (75-99)
[2019-07-21] MEDS: ONDANSETRON 4 MG/2 ML VIAL IVP PRN (12:04)
[2019-07-21] MEDS: LACTATED RINGERS 1,000 ML IV SCH (12:05)
[2019-07-21 12:47] LABS: Glucose,Whole Blood 146 mg/dL (75-99)
[2019-07-21 14:04] LABS: Glucose,Whole Blood 131 mg/dL (75-99)
[2019-07-21 15:09] LABS: Glucose,Whole Blood 125 mg/dL (75-99)
[2019-07-21] MEDS ORDERED: FUROSEMIDE 10 MG/ML 2 ML VIAL IV ONE (15:09)
--- NOTE | 2019-07-21 15:11 | P.PN ---
Subjective Progress Note Date: 07/21/19 Principal diagnosis: Multivessel CAD; status post CABG; POD #1 Multivessel coronary artery disease post bypass surgery. The patient was having angina on outpatient basis. She was quite symptomatic. The patient underwent cardiac catheterization and subsequently she was brought in to undergo coronary artery bypass surgery. She is currently postop day #1. The patient is curre ntly extubated. She is post thoracotomy. Chest tubes are all in place. She was weaned off the mechanical ventilator and she was extubated without any major difficulties currently on 2 L of oxygen by nasal cannula. Hemodynamically stable. The chest x-ray from today shows mild pulmonary vessel congestion. Chest tubes are in place. She'll be given Lasix once a blood pressure further stabilizes. She was given IV albumin for low urine output overnight Objective - Vital Signs Vital signs: Vital Signs Temp 98.2 F 07/21/19 08:00 Pulse 74 07/21/19 10:00 Resp 22 07/21/19 10:00 BP 122/75 07/21/19 10:00 Pulse Ox 96 07/21/19 10:00 Intake & Output 07/20/19 07/21/19 07/21/19 18:59 06:59 18:59 Intake Total 556.732 1095.055 276.903 Output Total 2307 606 91 Balance -1786.137 833.055 185.903 Weight 74.5 kg Intake: IV 78 1328 247 ACETAMINOPHEN IV (For NPO 100 ) 1,000 mg In Empty Bag 1 bag @ 400 mls/hr IVPB Q6HR S[facility] Rx#:[id number] Albumin Human 5% 250 ml 250 In Empty Bag 1 bag @ 250 mls/hr IVPB Q1HR PRN Rx#: [id number] Lactated Ringers 1,000 ml 550 150 @ 20 mls/hr IV .Q24H SALLY Rx#:[id number] Normal Saline Pressure 45 108 27 Bag ceFAZolin 2 gm In Sodium 100 50 Chloride 0.9% 50 ml @ 100 mls/hr IVPB Q8H SALLY Rx#: [id number] co/ci 220 20 Intake, IV Titration 442.863 111.055 29.903 Amount ACETAMINOPHEN IV (For NPO 100 ) 1,000 mg In Empty Bag 1 bag @ 400 mls/hr IVPB Q6HR SALLY Rx#:[id number] Clevidipine Butyrate 25 69.400 30.334 mg In Empty Bag 1 bag @ 1 MG/HR 2 mls/hr IV .Q24H SALLY Rx#:[id number] Insulin Regular 100 unit 15.974 30.721 2.828 In Sodium Chloride 0.9% 100 ml @ Per Protocol IV .Q0M SALLY Rx#:[id number] Lactated Ringers 1,000 ml 200 50 @ 20 mls/hr IV .Q24H S[facility] Rx#:[id number] Nitroglycerin-D5w Pmx 50 27.075 mg In Dextrose/Water 1 250ml.bag @ 5 MCG/MIN 1.5 mls/hr IV .Q24H [facility] Rx#: [id number] Propofol 1,000 mg In 7.489 Empty Bag 1 bag @ Titrate IV .Q0M SALLY Rx#: [id number] ceFAZolin 2 gm In Sodium 50 Chloride 0.9% 50 ml @ 100 mls/hr IVPB Q8H SALLY Rx#: [id number] Output: Chest Tube Drainage 187 256 50 Left Pleural 64 99 10 Mediastinal x2 123 157 40 Urine 1410 350 41 Oral Regurgitation 10 Estimated Blood Loss 700 Other: Voiding Method Indwelling Catheter Indwelling Catheter ABP, PAP, CO, CI - Last Documented Arterial Blood Pressure 121/57 Pulmonary Artery Pressure 48/25 Cardiac Output 4.3 Cardiac Index 2.4 - Exam PHYSICAL EXAMINATION: GENERAL: The patient is alert and oriented x3, not in any acute distress. Well developed, well nourished. HEENT: Pupils are round and equally reacting to light. EOMI. No scleral icterus. No conjunctival pallor. Normocephalic, atraumatic. No pharyngeal erythema. No thyromegaly. CARDIOVASCULAR: S1 and S2 present. No murmurs, rubs, or gallops. PULMONARY: Chest is clear to auscultation, no wheezing or crackles. ABDOMEN: Soft, nontender, nondistended, normoactive bowel sounds. No palpable organomegaly. MUSCULOSKELETAL: No joint swelling or deformity. EXTREMITIES: No cyanosis, clubbing, or pedal edema. NEUROLOGICAL: Gross neurological examination did not reveal any focal deficits. SKIN: No rashes. - Labs CBC & Chem 7: 07/21/19 05:10 07/21/19 05:10 Labs: Abnormal Lab Results - Last 24 Hours (Table) 07/19/19 07/20/19 07/20/19 Range/Units 10:52 08:56 10:18 RBC (3.80-5.40) m/uL Hgb (11.4-16.0) gm/dL Hct (34.0-46.0) % Plt Count (150-450) k/uL Neutrophils # (1.3-7.7) k/uL Lymphocytes # (1.0-4.8) k/uL ABG pH (7.35-7.45) ABG pCO2 (35-45) mmHg ABG pO2 172 H 204 H (83-108) mmHg ABG Total CO2 26 H 26 H (19-24) mmol/L ABG O2 Saturation 99.6 H 99.7 H (94-97) % ABG Hematocrit 33 L 30 L (34.0-46.0) % ABG Potassium (3.4-4.5) mmol/L ABG Ionized Calcium (4.5-5.3) mg/dL ABG Glucose 187 H 139 H (75-99) mg/dL ABG Lactic Acid 2.6 H* (0.5-1.6) mmol/L Hemoglobin 10.8 L 9.8 L (11.4-16.0) gm/dL Sodium (137-145) mmol/L Creatinine (0.52-1.04) mg/dL Glucose (74-99) mg/dL POC Glucose (mg/dL) (75-99) mg/dL Calcium (8.4-10.2) mg/dL AST (14-36) U/L Alkaline Phosphatase (38-126) U/L Total Protein (6.3-8.2) g/dL Albumin (3.5-5.0) g/dL Arterial Blood Potassium (3.4-4.5) mmol/L Arterial Blood Glucose 187 H 139 H (75-99) mg/dL Crossmatch See Detail 07/20/19 07/20/19 07/20/19 Range/Units 11:00 11:35 12:38 RBC (3.80-5.40) m/uL Hgb (11.4-16.0) gm/dL Hct (34.0-46.0) % Plt Count (150-450) k/uL Neutrophils # (1.3-7.7) k/uL Lymphocytes # (1.0-4.8) k/uL ABG pH (7.35-7.45) ABG pCO2 (35-45) mmHg ABG pO2 366 H 407 H 135 H (83-108) mmHg ABG Total CO2 25 H 26 H 26 H (19-24) mmol/L ABG O2 Saturation 100.0 H 100.0 H 99.1 H (94-97) % ABG Hematocrit 20 L* 22 L 24 L (34.0-46.0) % ABG Potassium 4.6 H (3.4-4.5) mmol/L ABG Ionized Calcium 4.4 L (4.5-5.3) mg/dL ABG Glucose 186 H 161 H (75-99) mg/dL ABG Lactic Acid 2.3 H* 2.4 H* 2.3 H* (0.5-1.6) mmol/L Hemoglobin 6.5 L* 7.2 L 7.9 L (11.4-16.0) gm/dL Sodium (137-145) mmol/L Creatinine (0.52-1.04) mg/dL Glucose (74-99) mg/dL POC Glucose (mg/dL) (75-99) mg/dL Calcium (8.4-10.2) mg/dL AST (14-36) U/L Alkaline Phosphatase (38-126) U/L Total Protein (6.3-8.2) g/dL Albumin (3.5-5.0) g/dL Arterial Blood Potassium 4.6 H (3.4-4.5) mmol/L Arterial Blood Glucose 186 H 161 H (75-99) mg/dL Crossmatch 07/20/19 07/20/19 07/20/19 Range/Units 13:28 13:47 13:48 RBC (3.80-5.40) m/uL Hgb (11.4-16.0) gm/dL Hct (34.0-46.0) % Plt Count (150-450) k/uL Neutrophils # (1.3-7.7) k/uL Lymphocytes # (1.0-4.8) k/uL ABG pH 7.31 L (7.35-7.45) ABG pCO2 49 H (35-45) mmHg ABG pO2 224 H (83-108) mmHg ABG Total CO2 26 H (19-24) mmol/L ABG O2 Saturation 99.6 H (94-97) % ABG Hematocrit (34.0-46.0) % ABG Potassium (3.4-4.5) mmol/L ABG Ionized Calcium (4.5-5.3) mg/dL ABG Glucose (75-99) mg/dL ABG Lactic Acid (0.5-1.6) mmol/L Hemoglobin (11.4-16.0) gm/dL Sodium (137-145) mmol/L Creatinine (0.52-1.04) mg/dL Glucose (74-99) mg/dL POC Glucose (mg/dL) 43 L 192 H (75-99) mg/dL Calcium (8.4-10.2) mg/dL AST (14-36) U/L Alkaline Phosphatase (38-126) U/L Total Protein (6.3-8.2) g/dL Albumin (3.5-5.0) g/dL Arterial Blood Potassium (3.4-4.5) mmol/L Arterial Blood Glucose (75-99) mg/dL Crossmatch 07/20/19 07/20/19 07/20/19 Range/Units 14:12 14:35 14:35 RBC 3.20 L (3.80-5.40) m/uL Hgb 9.1 L D (11.4-16.0) gm/dL Hct 27.9 L (34.0-46.0) % Plt Count 119 L (150-450) k/uL Neutrophils # (1.3-7.7) k/uL Lymphocytes # 0.8 L (1.0-4.8) k/uL ABG pH (7.35-7.45) ABG pCO2 (35-45) mmHg ABG pO2 (83-108) mmHg ABG Total CO2 (19-24) mmol/L ABG O2 Saturation (94-97) % ABG Hematocrit (34.0-46.0) % ABG Potassium (3.4-4.5) mmol/L ABG Ionized Calcium (4.5-5.3) mg/dL ABG Glucose (75-99) mg/dL ABG Lactic Acid (0.5-1.6) mmol/L Hemoglobin (11.4-16.0) gm/dL Sodium 136 L (137-145) mmol/L Creatinine 0.45 L (0.52-1.04) mg/dL Glucose 136 H (74-99) mg/dL POC Glucose (mg/dL) 114 H (75-99) mg/dL Calcium 8.2 L (8.4-10.2) mg/dL AST 57 H (14-36) U/L Alkaline Phosphatase 34 L (38-126) U/L Total Protein 5.1 L (6.3-8.2) g/dL Albumin 3.0 L (3.5-5.0) g/dL Arterial Blood Potassium (3.4-4.5) mmol/L Arterial Blood Glucose (75-99) mg/dL Crossmatch 07/20/19 07/20/19 07/20/19 Range/Units 15:13 16:08 16:10 RBC 3.24 L (3.80-5.40) m/uL Hgb 9.4 L (11.4-16.0) gm/dL Hct 28.2 L (34.0-46.0) % Plt Count 127 L (150-450) k/uL Neutrophils # (1.3-7.7) k/uL Lymphocytes # 0.7 L (1.0-4.8) k/uL ABG pH (7.35-7.45) ABG pCO2 (35-45) mmHg ABG pO2 (83-108) mmHg ABG Total CO2 (19-24) mmol/L ABG O2 Saturation (94-97) % ABG Hematocrit (34.0-46.0) % ABG Potassium (3.4-4.5) mmol/L ABG Ionized Calcium (4.5-5.3) mg/dL ABG Glucose (75-99) mg/dL ABG Lactic Acid (0.5-1.6) mmol/L Hemoglobin (11.4-16.0) gm/dL Sodium (137-145) mmol/L Creatinine (0.52-1.04) mg/dL Glucose (74-99) mg/dL POC Glucose (mg/dL) 192 H 246 H (75-99) mg/dL Calcium (8.4-10.2) mg/dL AST (14-36) U/L Alkaline Phosphatase (38-126) U/L Total Protein (6.3-8.2) g/dL Albumin (3.5-5.0) g/dL Arterial Blood Potassium (3.4-4.5) mmol/L Arterial Blood Glucose (75-99) mg/dL Crossmatch 07/20/19 07/20/19 07/20/19 Range/Units 16:30 17:14 18:15 RBC (3.80-5.40) m/uL Hgb (11.4-16.0) gm/dL Hct (34.0-46.0) % Plt Count (150-450) k/uL Neutrophils # (1.3-7.7) k/uL Lymphocytes # (1.0-4.8) k/uL ABG pH (7.35-7.45) ABG pCO2 (35-45) mmHg ABG pO2 (83-108) mmHg ABG Total CO2 (19-24) mmol/L ABG O2 Saturation 97.3 H (94-97) % ABG Hematocrit (34.0-46.0) % ABG Potassium (3.4-4.5) mmol/L ABG Ionized Calcium (4.5-5.3) mg/dL ABG Glucose (75-99) mg/dL ABG Lactic Acid (0.5-1.6) mmol/L Hemoglobin (11.4-16.0) gm/dL Sodium (137-145) mmol/L Creatinine (0.52-1.04) mg/dL Glucose (74-99) mg/dL POC Glucose (mg/dL) 266 H 244 H (75-99) mg/dL Calcium (8.4-10.2) mg/dL AST (14-36) U/L Alkaline Phosphatase (38-126) U/L Total Protein (6.3-8.2) g/dL Albumin (3.5-5.0) g/dL Arterial Blood Potassium (3.4-4.5) mmol/L Arterial Blood Glucose (75-99) mg/dL Crossmatch 07/20/19 07/20/19 07/20/19 Range/Units 19:00 19:03 20:01 RBC 3.25 L (3.80-5.40) m/uL Hgb 9.5 L (11.4-16.0) gm/dL Hct 28.5 L (34.0-46.0) % Plt Count 122 L (150-450) k/uL Neutrophils # 8.1 H (1.3-7.7) k/uL Lymphocytes # 0.7 L (1.0-4.8) k/uL ABG pH (7.35-7.45) ABG pCO2 (35-45) mmHg ABG pO2 (83-108) mmHg ABG Total CO2 (19-24) mmol/L ABG O2 Saturation (94-97) % ABG Hematocrit (34.0-46.0) % ABG Potassium (3.4-4.5) mmol/L ABG Ionized Calcium (4.5-5.3) mg/dL ABG Glucose (75-99) mg/dL ABG Lactic Acid (0.5-1.6) mmol/L Hemoglobin (11.4-16.0) gm/dL Sodium (137-145) mmol/L Creatinine (0.52-1.04) mg/dL Glucose (74-99) mg/dL POC Glucose (mg/dL) 207 H 186 H (75-99) mg/dL Calcium (8.4-10.2) mg/dL AST (14-36) U/L Alkaline Phosphatase (38-126) U/L Total Protein (6.3-8.2) g/dL Albumin (3.5-5.0) g/dL Arterial Blood Potassium (3.4-4.5) mmol/L Arterial Blood Glucose (75-99) mg/dL Crossmatch 07/20/19 07/20/19 07/20/19 Range/Units 21:05 22:22 23:19 RBC (3.80-5.40) m/uL Hgb (11.4-16.0) gm/dL Hct (34.0-46.0) % Plt Count (150-450) k/uL Neutrophils # (1.3-7.7) k/uL Lymphocytes # (1.0-4.8) k/uL ABG pH (7.35-7.45) ABG pCO2 (35-45) mmHg ABG pO2 (83-108) mmHg ABG Total CO2 (19-24) mmol/L ABG O2 Saturation (94-97) % ABG Hematocrit (34.0-46.0) % ABG Potassium (3.4-4.5) mmol/L ABG Ionized Calcium (4.5-5.3) mg/dL ABG Glucose (75-99) mg/dL ABG Lactic Acid (0.5-1.6) mmol/L Hemoglobin (11.4-16.0) gm/dL Sodium (137-145) mmol/L Creatinine (0.52-1.04) mg/dL Glucose (74-99) mg/dL POC Glucose (mg/dL) 141 H 116 H 111 H (75-99) mg/dL Calcium (8.4-10.2) mg/dL AST (14-36) U/L Alkaline Phosphatase (38-126) U/L Total Protein (6.3-8.2) g/dL Albumin (3.5-5.0) g/dL Arterial Blood Potassium (3.4-4.5) mmol/L Arterial Blood Glucose (75-99) mg/dL Crossmatch 07/21/19 07/21/19 07/21/19 Range/Units 00:05 02:21 03:45 RBC (3.80-5.40) m/uL Hgb (11.4-16.0) gm/dL Hct (34.0-46.0) % Plt Count (150-450) k/uL Neutrophils # (1.3-7.7) k/uL Lymphocytes # (1.0-4.8) k/uL ABG pH (7.35-7.45) ABG pCO2 (35-45) mmHg ABG pO2 (83-108) mmHg ABG Total CO2 (19-24) mmol/L ABG O2 Saturation (94-97) % ABG Hematocrit (34.0-46.0) % ABG Potassium (3.4-4.5) mmol/L ABG Ionized Calcium (4.5-5.3) mg/dL ABG Glucose (75-99) mg/dL ABG Lactic Acid (0.5-1.6) mmol/L Hemoglobin (11.4-16.0) gm/dL Sodium (137-145) mmol/L Creatinine (0.52-1.04) mg/dL Glucose (74-99) mg/dL POC Glucose (mg/dL) 118 H 203 H 159 H (75-99) mg/dL Calcium (8.4-10.2) mg/dL AST (14-36) U/L Alkaline Phosphatase (38-126) U/L Total Protein (6.3-8.2) g/dL Albumin (3.5-5.0) g/dL Arterial Blood Potassium (3.4-4.5) mmol/L Arterial Blood Glucose (75-99) mg/dL Crossmatch 07/21/19 07/21/19 07/21/19 Range/Units 05:05 05:10 05:10 RBC 2.98 L (3.80-5.40) m/uL Hgb 8.6 L (11.4-16.0) gm/dL Hct 26.1 L (34.0-46.0) % Plt Count 108 L (150-450) k/uL Neutrophils # (1.3-7.7) k/uL Lymphocytes # (1.0-4.8) k/uL ABG pH (7.35-7.45) ABG pCO2 (35-45) mmHg ABG pO2 (83-108) mmHg ABG Total CO2 (19-24) mmol/L ABG O2 Saturation (94-97) % ABG Hematocrit (34.0-46.0) % ABG Potassium (3.4-4.5) mmol/L ABG Ionized Calcium (4.5-5.3) mg/dL ABG Glucose (75-99) mg/dL ABG Lactic Acid (0.5-1.6) mmol/L Hemoglobin (11.4-16.0) gm/dL Sodium 135 L (137-145) mmol/L Creatinine (0.52-1.04) mg/dL Glucose 104 H (74-99) mg/dL POC Glucose (mg/dL) 116 H (75-99) mg/dL Calcium 8.3 L (8.4-10.2) mg/dL AST 55 H (14-36) U/L Alkaline Phosphatase 28 L (38-126) U/L Total Protein 5.0 L (6.3-8.2) g/dL Albumin 2.9 L (3.5-5.0) g/dL Arterial Blood Potassium (3.4-4.5) mmol/L Arterial Blood Glucose (75-99) mg/dL Crossmatch 07/21/19 07/21/19 07/21/19 Range/Units 08:00 08:52 09:53 RBC (3.80-5.40) m/uL Hgb (11.4-16.0) gm/dL Hct (34.0-46.0) % Plt Count (150-450) k/uL Neutrophils # (1.3-7.7) k/uL Lymphocytes # (1.0-4.8) k/uL ABG pH (7.35-7.45) ABG pCO2 (35-45) mmHg ABG pO2 (83-108) mmHg ABG Total CO2 (19-24) mmol/L ABG O2 Saturation (94-97) % ABG Hematocrit (34.0-46.0) % ABG Potassium (3.4-4.5) mmol/L ABG Ionized Calcium (4.5-5.3) mg/dL ABG Glucose (75-99) mg/dL ABG Lactic Acid (0.5-1.6) mmol/L Hemoglobin (11.4-16.0) gm/dL Sodium (137-145) mmol/L Creatinine (0.52-1.04) mg/dL Glucose (74-99) mg/dL POC Glucose (mg/dL) 101 H 181 H 219 H (75-99) mg/dL Calcium (8.4-10.2) mg/dL AST (14-36) U/L Alkaline Phosphatase (38-126) U/L Total Protein (6.3-8.2) g/dL Albumin (3.5-5.0) g/dL Arterial Blood Potassium (3.4-4.5) mmol/L Arterial Blood Glucose (75-99) mg/dL Crossmatch 07/21/19 07/21/19 Range/Units 10:56 11:47 RBC (3.80-5.40) m/uL Hgb (11.4-16.0) gm/dL Hct (34.0-46.0) % Plt Count (150-450) k/uL Neutrophils # (1.3-7.7) k/uL Lymphocytes # (1.0-4.8) k/uL ABG pH (7.35-7.45) ABG pCO2 (35-45) mmHg ABG pO2 (83-108) mmHg ABG Total CO2 (19-24) mmol/L ABG O2 Saturation (94-97) % ABG Hematocrit (34.0-46.0) % ABG Potassium (3.4-4.5) mmol/L ABG Ionized Calcium (4.5-5.3) mg/dL ABG Glucose (75-99) mg/dL ABG Lactic Acid (0.5-1.6) mmol/L Hemoglobin (11.4-16.0) gm/dL Sodium (137-145) mmol/L Creatinine (0.52-1.04) mg/dL Glucose (74-99) mg/dL POC Glucose (mg/dL) 182 H 169 H (75-99) mg/dL Calcium (8.4-10.2) mg/dL AST (14-36) U/L Alkaline Phosphatase (38-126) U/L Total Protein (6.3-8.2) g/dL Albumin (3.5-5.0) g/dL Arterial Blood Potassium (3.4-4.5) mmol/L Arterial Blood Glucose (75-99) mg/dL Crossmatch Assessment and Plan Assessment: 1. Multivessel coronary artery disease post bypass surgery; postop day #1. The patient is currently extubated. She is post thoracotomy. Chest tubes are all in place. She was weaned off the mechanical ventilator and she was extub ated without any major difficulties currently on 2 L of oxygen by nasal cannula. Hemodynamically stable. The chest x-ray from today shows mild pulmonary vessel congestion. Chest tubes are in place. She'll be given Lasix once a blood pressure further stabilizes. She was given IV albumin for low urine output overnight. 2. Acute non-ST elevated myocardial infarction; status post cardiac cathet erization 3. COPD; not in exacerbation; FEV1 of 41% predicted according to the bedside spirometry, the patient is currently using incentive spirometer 4. Hypertension, current BP is under better control; continue with hydralazine 20 mg IV every 4 hours when necessary 5. Hypothyroidism; levothyroxin 100 MCG daily 6. Hyperlipidemia; continue with home dose of statin therapy 7. Insulin-dependent diabetes mellitus, currently on insulin drip for blood sugar control DVT prophylaxis; subcu heparin CODE STATUS; full code Time with Patient: Greater than 30
[2019-07-21 16:00] LABS: Glucose,Whole Blood 133 mg/dL (75-99)
[2019-07-21 17:08] LABS: Glucose,Whole Blood 149 mg/dL (75-99)
[2019-07-21 18:13] LABS: Glucose,Whole Blood 201 mg/dL (75-99)
[2019-07-21 19:05] LABS: Glucose,Whole Blood 192 mg/dL (75-99)
[2019-07-21 19:58] LABS: Glucose,Whole Blood 166 mg/dL (75-99)
[2019-07-21 21:00] LABS: Glucose,Whole Blood 137 mg/dL (75-99)
[2019-07-21] MEDS: SENNOSIDES-DOCUSATE SODIUM 1 EACH TAB PO SCH (21:10)
[2019-07-21 22:20] LABS: Glucose,Whole Blood 127 mg/dL (75-99)
[2019-07-21 23:54] LABS: Glucose,Whole Blood 115 mg/dL (75-99)
[2019-07-22] MEDS: KETOROLAC 30 MG/ML 1 ML VIAL IVP SCH ×5 (00:48→23:34)
[2019-07-22 01:56] LABS: Glucose,Whole Blood 213 mg/dL (75-99)
[2019-07-22 02:55] LABS: Glucose,Whole Blood 169 mg/dL (75-99)
[2019-07-22 03:30] LABS: Glucose,Whole Blood 153 mg/dL (75-99)
[2019-07-22 04:19] LABS: Glucose,Whole Blood 122 mg/dL (75-99)
[2019-07-22 04:56] LABS: Glucose,Whole Blood 118 mg/dL (75-99)
[2019-07-22] MEDS: PANTOPRAZOLE 40 MG TABLET PO SCH (05:11)
[2019-07-22] MEDS: LEVOTHYROXINE 100 MCG TAB PO SCH (05:11)
[2019-07-22] MEDS: HEPARIN SODIUM,PORCINE 5,000 UNIT/ML 1 ML VIAL SQ SCH ×3 (05:11→20:59)
[2019-07-22 05:35] LABS: Basophils % (A) 0 %; Eosinophils # (A) 0.2 k/uL (0-0.7); Eosinophils % (A) 3 %; Lymphocytes # (A) 1.5 k/uL (1.0-4.8); Lymphocytes % (A) 22 %; MCH 28.3 pg (25.0-35.0); MCHC 32.1 g/dL (31.0-37.0); MCV 88.2 fL (80.0-100.0); Mean Platelet Volume 9.3; Monocytes # (A) 0.4 k/uL (0-1.0); Monocytes % (A) 7 %; Neutrophils # (A) 4.5 k/uL (1.3-7.7); Neutrophils % (A) 67 %; Platelet Count 104 k/uL (150-450); RBC 2.84 m/uL (3.80-5.40); RDW 14.6 % (11.5-15.5); WBC 6.8 k/uL (3.8-10.6)
[2019-07-22 05:41] LABS: Ionized Calcium 5.2 mg/dL (4.5-5.3)
[2019-07-22 05:51] LABS: ALT 17 U/L (4-34); AST 38 U/L (14-36); African American GFR (CKD) >90 (>60 ml/min/1.73 sqM); Albumin 3.2 g/dL (3.5-5.0); Alkaline Phosphatase 34 U/L (38-126); Anion Gap 7 mmol/L; Blood Urea Nitrogen 16 mg/dL (7-17); Calcium 8.7 mg/dL (8.4-10.2); Carbon Dioxide 25 mmol/L (22-30); Chloride 103 mmol/L (98-107); Glucose 107 mg/dL (74-99); Non-African American GFR(CKD) 87 (>60 ml/min/1.73 sqM); Potassium 4.3 mmol/L (3.5-5.1); Sodium 135 mmol/L (137-145); Total Bilirubin 0.4 mg/dL (0.2-1.3); Total Protein 5.4 g/dL (6.3-8.2)
[2019-07-22 06:06] LABS: Glucose,Whole Blood 109 mg/dL (75-99)
[2019-07-22 07:13] LABS: Glucose,Whole Blood 174 mg/dL (75-99)
--- NOTE | 2019-07-22 07:25 | XR ---
EXAMINATION TYPE: XR chest 1V portable DATE OF EXAM: 07/22/2019 CLINICAL HISTORY: Difficulty breathing progress study. Postoperative cardiac surgery. TECHNIQUE: Single AP portable upright view of the chest is obtained. COMPARISON: Chest x-ray from one day earlier and older studies. FINDINGS: Interval removal of right internal jugular [place] catheter with persistent quarter sheat h. Stable 2 left-sided chest tubes and mediastinal drainage catheter. Overlying sternal wires and med iastinal clips redemonstrated. Persistent cardiomegaly with left basilar opacity and improving centra l vascular congestion. No pneumothorax. Right lung remains clear. Osseous structures intact. Left-del ed cardiac closure device redemonstrated. IMPRESSION: Persistent cardiomegaly with left basilar atelectasis and/or infiltrate. Improving centra l vascular congestion noted.
[2019-07-22] MEDS: ASPIRIN 325 MG TAB PO SCH (08:19)
[2019-07-22] MEDS: CLOPIDOGREL 75 MG TAB PO SCH (08:19)
[2019-07-22] MEDS: METOPROLOL TARTRATE 25 MG TAB PO SCH ×2 (08:19→21:01)
[2019-07-22] MEDS: MUPIROCIN 2% OINT 22 GM TUBE NASAL SCH (08:19)
[2019-07-22] MEDS: ATORVASTATIN 40 MG TAB PO SCH (08:19)
[2019-07-22 08:25] LABS: Glucose,Whole Blood 176 mg/dL (75-99)
[2019-07-22] MEDS: IPRATROPIUM-ALBUTEROL 3 ML NEB INHALATION SCH ×4 (09:02→20:53)
[2019-07-22 09:16] LABS: Glucose,Whole Blood 187 mg/dL (75-99)
--- NOTE | 2019-07-22 09:59 | P.PN ---
Subjective Progress Note Date: 07/22/19 On today's evaluation of 07/20/2019 the patient is being seen in intensive care unit following bypass surgery. The patient underwent [place] to LAD and SVG to PDA along with left atrial appendage clipping. Postop, the patient was brought into the intensive care unit. Chest x-ray showed adequate positioning of the ET tube. Lungs are well expanded and there was no evidence of any pneumothorax. The patient has a mediastinal and left pleural chest tube. There are 2 mediastinal chest tubes for now. Overall output from the fumes have been minimal, as the patient is producing 50 mL from the mediastinal chest tube and 100 mL from the pleural chest tube. The cardiac output is 6.7 with an index of 3.8. Pulmonary artery pressures are 37/20. The patient was gradually weaned off the mechanical ventilator. I was able to give this patient spontaneous breathing trial with a pressure support of 5 and a PEEP of 5 for a total of 30 minutes. The blood gases was obtained at the end of the breathing trial showed a pH of 7.37 with a pCO2 of 40 and pO2 of 89. The weaning parameters were all adequate. Based on that, the patient was extubated. Currently she is still drowsy and sleepy. She is on oxygen at 4 L per minute nasal cannula. Her cardiac rhythm is sinus and the low 80s. She is producing adequate amount of urine output. Blood pressure is elevated and the patient is currently a on a combination of Cleviprex 6 mg/h and nitroglycerin at 5 g per KG per minute. Urine output is nor that of 30 mL an hour. The patient is on insulin drip at 7 units an hour. She is moving all 4 extremities and she is calm and comfortable to. Sternum is dry clean and intact. No other significant events otherwise for now. On today's evaluation of 07/21/2019 and seen For a Follow-Up. She Did Extremely Well. I Was Able to Extubate Her around 6 PM Yesterday without Any Major Difficulties. Currently She Is on Oxygen at 4 L Per Minute Nasal Cannula. This Was Further weaned down to 2 L per minute. Her chest x-ray shows some mild pulmonary vascular congestion. She did have some low urine output. She was given albumin 250 mL yesterday afternoon and overnight she received another 500. Her urine output is improved as is being my monitored. The most recent cardiac output was 4.3 with an index of 2.4. The [place] catheter has been removed. The chest tubes are essentially dry. There is no evidence of any air leak at this point in time. No major swelling lower extremities. Sternum stable clean and intact. The right IJ cordis is still in place. No cardiac arrhythmias. The cardiac rhythm is sinus. She is on insulin 4.5 units an hour. She is using incentive spirometer and she is pulling approximately 500. She is taking full liquid diet including popsicles and Jell-O's. The patient is seen today 07/22/2019 in follow-up in the intensive care unit. She is currently sitting up in a chair at the bedside. Awake and alert in no acute distress. Sternal wires have been removed. Chest tubes have been removed. She is maintaining good O2 saturations in the 90s on 2 L/m per nasal cannula. She is afebrile. Hemodynamically stable. Maintaining sinus rhythm. White count 6.8. Hemoglobin 8.0. Sodium 135. Potassium 4.3. Creatinine 0.70. Chest x-ray reveals persistent cardiomegaly and left basilar atelectasis with some mild vascular congestion. She continues to work well with the incentive spirometer. She is tolerating her diet. She is currently on insulin drip at 5 units per hour. Glucose 187. Objective - Vital Signs Vital signs: Vital Signs Temp 98.6 F 07/22/19 08:00 Pulse 77 07/22/19 08:00 Resp 20 07/22/19 08:00 BP 117/60 07/22/19 08:00 Pulse Ox 99 07/22/19 08:00 Intake & Output 07/21/19 07/22/19 07/22/19 18:59 06:59 18:59 Intake Total 641.451 541.142 49.035 Output Total 885 934 0 Balance -243.549 -392.858 49.035 Weight 74.5 kg 84.2 kg Intake: IV 594 516 43 Lactated Ringers 1,000 ml 470 480 40 @ 20 mls/hr IV .Q24H SALLY Rx#:[id number] Normal Saline Pressure 54 36 3 Bag ceFAZolin 2 gm In Sodium 50 Chloride 0.9% 50 ml @ 100 mls/hr IVPB Q8H SALLY Rx#: [id number] co/ci 20 Intake, IV Titration 47.451 25.142 6.035 Amount Insulin Regular 100 unit 20.376 25.142 6.035 In Sodium Chloride 0.9% 100 ml @ Per Protocol IV .Q0M SALLY Rx#:[id number] Nitroglycerin-D5w Pmx 50 27.075 mg In Dextrose/Water 1 250ml.bag @ 5 MCG/MIN 1.5 mls/hr IV .Q24H SALLY Rx#: [id number] Output: Chest Tube Drainage 228 154 Left Pleural 48 54 Mediastinal x2 180 100 Urine 657 780 0 Other: Voiding Method Indwelling Catheter Indwelling Catheter # Voids 0 0 ABP, PAP, CO, CI - Last Documented Arterial Blood Pressure 121/57 Pulmonary Artery Pressure 48/25 Cardiac Output 4.3 Cardiac Index 2.4 - Exam GENERAL EXAM: Alert, very pleasant 73-year-old female patient, up in the chair at the bedside. On 2 L nasal cannula. Comfortable in no apparent distress. HEAD: Normocephalic. EYES: Normal reaction of pupils, equal size. NOSE: Clear with pink turbinates. THROAT: No erythema or exudates. NECK: No masses, no JVD. CHEST: Sternal dressing dry and intact. Heart Hugger in place. Pacer wires removed today. LUNGS: Equal air entry with crackles in left posterior base. Chest tubes removed today. CVS: S1 and S2 normal with no audible murmur, regular rhythm. ABDOMEN: No hepatosplenomegaly, normal bowel sounds, no guarding or rigidity. SPINE: No scoliosis or deformity SKIN: No rashes CENTRAL NERVOUS SYSTEM: No focal deficits, tone is normal in all 4 extremities. EXTREMITIES: There is trace peripheral edema. No clubbing, no cyanosis. Peripheral pulses are intact. SCDs in place. - Labs CBC & Chem 7: 07/22/19 04:48 07/22/19 04:48 Labs: Abnormal Lab Results - Last 24 Hours (Table) 07/21/19 07/21/19 07/21/19 Range/Units 09:53 10:56 11:47 RBC (3.80-5.40) m/uL Hgb (11.4-16.0) gm/dL Hct (34.0-46.0) % Plt Count (150-450) k/uL Sodium (137-145) mmol/L Glucose (74-99) mg/dL POC Glucose (mg/dL) 219 H 182 H 169 H (75-99) mg/dL AST (14-36) U/L Alkaline Phosphatase (38-126) U/L Total Protein (6.3-8.2) g/dL Albumin (3.5-5.0) g/dL 07/21/19 07/21/19 07/21/19 Range/Units 12:46 14:03 15:08 RBC (3.80-5.40) m/uL Hgb (11.4-16.0) gm/dL Hct (34.0-46.0) % Plt Count (150-450) k/uL Sodium (137-145) mmol/L Glucose (74-99) mg/dL POC Glucose (mg/dL) 146 H 131 H 125 H (75-99) mg/dL AST (14-36) U/L Alkaline Phosphatase (38-126) U/L Total Protein (6.3-8.2) g/dL Albumin (3.5-5.0) g/dL 07/21/19 07/21/19 07/21/19 Range/Units 15:58 17:07 18:12 RBC (3.80-5.40) m/uL Hgb (11.4-16.0) gm/dL Hct (34.0-46.0) % Plt Count (150-450) k/uL Sodium (137-145) mmol/L Glucose (74-99) mg/dL POC Glucose (mg/dL) 133 H 149 H 201 H (75-99) mg/dL AST (14-36) U/L Alkaline Phosphatase (38-126) U/L Total Protein (6.3-8.2) g/dL Albumin (3.5-5.0) g/dL 07/21/19 07/21/19 07/21/19 Range/Units 19:03 19:57 20:59 RBC (3.80-5.40) m/uL Hgb (11.4-16.0) gm/dL Hct (34.0-46.0) % Plt Count (150-450) k/uL Sodium (137-145) mmol/L Glucose (74-99) mg/dL POC Glucose (mg/dL) 192 H 166 H 137 H (75-99) mg/dL AST (14-36) U/L Alkaline Phosphatase (38-126) U/L Total Protein (6.3-8.2) g/dL Albumin (3.5-5.0) g/dL 07/21/19 07/21/19 07/22/19 Range/Units 22:19 23:53 01:55 RBC (3.80-5.40) m/uL Hgb (11.4-16.0) gm/dL Hct (34.0-46.0) % Plt Count (150-450) k/uL Sodium (137-145) mmol/L Glucose (74-99) mg/dL POC Glucose (mg/dL) 127 H 115 H 213 H (75-99) mg/dL AST (14-36) U/L Alkaline Phosphatase (38-126) U/L Total Protein (6.3-8.2) g/dL Albumin (3.5-5.0) g/dL 07/22/19 07/22/19 07/22/19 Range/Units 02:53 03:28 04:18 RBC (3.80-5.40) m/uL Hgb (11.4-16.0) gm/dL Hct (34.0-46.0) % Plt Count (150-450) k/uL Sodium (137-145) mmol/L Glucose (74-99) mg/dL POC Glucose (mg/dL) 169 H 153 H 122 H (75-99) mg/dL AST (14-36) U/L Alkaline Phosphatase (38-126) U/L Total Protein (6.3-8.2) g/dL Albumin (3.5-5.0) g/dL 07/22/19 07/22/19 07/22/19 Range/Units 04:48 04:48 04:54 RBC 2.84 L (3.80-5.40) m/uL Hgb 8.0 L (11.4-16.0) gm/dL Hct 25.0 L (34.0-46.0) % Plt Count 104 L (150-450) k/uL Sodium 135 L (137-145) mmol/L Glucose 107 H (74-99) mg/dL POC Glucose (mg/dL) 118 H (75-99) mg/dL AST 38 H (14-36) U/L Alkaline Phosphatase 34 L (38-126) U/L Total Protein 5.4 L (6.3-8.2) g/dL Albumin 3.2 L (3.5-5.0) g/dL 07/22/19 07/22/19 07/22/19 Range/Units 06:04 07:11 08:24 RBC (3.80-5.40) m/uL Hgb (11.4-16.0) gm/dL Hct (34.0-46.0) % Plt Count (150-450) k/uL Sodium (137-145) mmol/L Glucose (74-99) mg/dL POC Glucose (mg/dL) 109 H 174 H 176 H (75-99) mg/dL AST (14-36) U/L Alkaline Phosphatase (38-126) U/L Total Protein (6.3-8.2) g/dL Albumin (3.5-5.0) g/dL 07/22/19 Range/Units 09:15 RBC (3.80-5.40) m/uL Hgb (11.4-16.0) gm/dL Hct (34.0-46.0) % Plt Count (150-450) k/uL Sodium (137-145) mmol/L Glucose (74-99) mg/dL POC Glucose (mg/dL) 187 H (75-99) mg/dL AST (14-36) U/L Alkaline Phosphatase (38-126) U/L Total Protein (6.3-8.2) g/dL Albumin (3.5-5.0) g/dL Assessment and Plan Assessment: 1 multivessel coronary artery disease post bypass surgery. The patient was having angina on outpatient basis. She was quite symptomatic. The patient underwent cardiac catheterization and subsequently she was brought in to undergo coronary artery bypass surgery. She is currently postop day #2. The patient is currently extubated. She is post thoracotomy. Chest tubes have been removed. Currently on 2 L of oxygen by nasal cannula. Hemodynamically stable. The chest x-ray from today shows mild pulmonary vessel congestion. 2. Acute non-ST elevated myocardial infarction 3. COPD, FEV1 of 41% predicted according to the bedside spirometry, the patient is currently using incentive spirometer 4. Hypertension, current BP is under better control 5. Hypothyroidism 6. Hyperlipidemia 7. Insulin-dependent diabetes mellitus, currently on insulin drip for blood sugar control 8. Anxiety 9. IBS, diverticulosis 10. Former smoker 11. GERD/reflux Plan The patient was seen and evaluated by Dr. Sheppard. Chest x-ray reviewed. Maintaining good O2 saturations in the 90s on 2 L. Chest tubes and pacer wires have been removed. Continue to work with the incentive spirometer. Increase her activity as tolerated. Discontinue the insulin drip. Start her on NPH 10 units twice a day. Humalog scale. We'll continue to follow and make further recommendations based on her clinical status. I, the cosigning physician, performed a history & physical examination of the patient. Lungs sounds with crackles in the left base. Maintaining good O2 saturations in the 90s on 2 L/m per nasal cannula. I discussed the assessment and plan of care with my nurse practitioner, Peg Leo. I attest to the above note as dictated by her.
[2019-07-22 10:06] LABS: Glucose,Whole Blood 157 mg/dL (75-99)
--- NOTE | 2019-07-22 10:31 | PN ---
PROGRESS NOTE Ms. Varela is a 73-year-old female status post coronary artery bypass grafting. She is doing well this morning. She feels sore, but otherwise she is fine. She is denying any change in her breathing. No dizziness. No palpitation. No nausea. She continues to be in sinus mechanism. Hemodynamically, she is stable. She is on no pressors. She continues to be on aspirin once a day, Plavix 75 mg daily, Lipitor 40 mg daily, and metoprolol tartrate 25 mg twice a day. PHYSICAL EXAMINATION: Blood pressure 117/60 with a heart rate in 70s. Lungs with mild crackles at the bases. HEART: Regular rate and rhythm. S1, S2. No S3. No rub appreciated. ABDOMEN: Soft, nontender. EXTREMITIES: No edema. LAB DATA: BUN and creatinine 16 and 0.7, hemoglobin of 8. IMPRESSION: 1. Status post coronary artery bypass grafting, stable. 2. History of diabetes. 3. Hyperlipidemia. 4. Hypertension. RECOMMENDATION: We will continue present therapy. Continue to increase level of activity and continue incentive spirometry. MMODL / IJN: [id number] /
[2019-07-22] MEDS: INSULIN NPH 300 UNIT/3 ML VIAL SQ SCH ×2 (11:06→21:00)
--- NOTE | 2019-07-22 11:44 | P.PN ---
Subjective Progress Note Date: 07/22/19 Principal diagnosis: Coronary artery disease, non-STEMI this admission. Past medical history signifiacant for hypertension, hyperlipidemia, insulin dependent diabetes mellitus with preoperative hemoglobin A1c 8.7%, severe lung disease with preoperative FEV1 41% of predicted hypothyroidism, anxiety, IBS, diverticulosis, GERD, previous social tobacco use, and family history of coronary artery disease. POD #2 coronary bypass grafting 2 vessels, left internal mammary artery to the left anterior descending coronary artery, a reverse greater saphenous vein graft to the posterior descending coronary artery, endoscopic harvesting of the right greater saphenous vein, epi-aortic ultrasound, intraoperative transesophageal echocardiogram and ligation of the left atrial appendage using 35 mm AtriClip. Postoperative acute blood loss anemia, expected outcome of surgery given hem odilution and cardiopulmonary bypass pump. The patient is currently sitting up to the bedside chair in the intensive care unit. She is in no acute distress. Denies any complaints of pain or shortness of breath at this time. She reports she just ambulated [place] of the intensive care unit without difficulty and with assistance from nursing staff. Bedside telemetry showing normal sinus rhythm heart rate 75. Oxygen saturation is 98% on 2 L nasal cannula. Achieving 750 mL on her incentive spirometry with encouragement. Right IJ Cordis is in place to continue CVP monitoring, current CVP pressure 6 mmHg. Guzmán catheter for accurate I&O with 350 mL output in the last 8 hours. Left pleural and mediastinal chest tubes remain in place to low continuous wall suction -20 cm H2O. No air leak is present. Left pleural chest tube with 25 mL output in the last 8 hours of thin serosanguineous drainage and 80 mL in the last 24 hours. Mediastinal chest tube with 60 mL output in the last 8 hours of thin serosanguineous drainage and 300 mL output in the last 24 hours. She remains afebrile the last 24 hours. She remains hemodynamically stable and is currently on no inotropic or pressor support. Objective - Vital Signs Vital signs: Vital Signs Temp 98.6 F 07/22/19 08:00 Pulse 77 07/22/19 08:00 Resp 20 07/22/19 08:00 BP 117/60 07/22/19 08:00 Pulse Ox 99 07/22/19 08:00 Intake & Output 07/21/19 07/22/19 07/22/19 18:59 06:59 18:59 Intake Total 641.451 541.142 209.035 Output Total 885 934 0 Balance -243.549 -392.858 209.035 Weight 74.5 kg 84.2 kg Intake: IV 594 516 203 Lactated Ringers 1,000 ml 470 480 200 @ 20 mls/hr IV .Q24H SALLY Rx#:[id number] Normal Saline Pressure 54 36 3 Bag ceFAZolin 2 gm In Sodium 50 Chloride 0.9% 50 ml @ 100 mls/hr IVPB Q8H SALLY Rx#: [id number] co/ci 20 Intake, IV Titration 47.451 25.142 6.035 Amount Insulin Regular 100 unit 20.376 25.142 6.035 In Sodium Chloride 0.9% 100 ml @ Per Protocol IV .Q0M SALLY Rx#:[id number] Nitroglycerin-D5w Pmx 50 27.075 mg In Dextrose/Water 1 250ml.bag @ 5 MCG/MIN 1.5 mls/hr IV .Q24H SALLY Rx#: [id number] Output: Chest Tube Drainage 228 154 Left Pleural 48 54 Mediastinal x2 180 100 Urine 657 780 0 Other: Voiding Method Indwelling Catheter Indwelling Catheter # Voids 0 0 # Bowel Movements 1 ABP, PAP, CO, CI - Last Documented Arterial Blood Pressure 121/57 Pulmonary Artery Pressure 48/25 Cardiac Output 4.3 Cardiac Index 2.4 - Constitutional General appearance: Present: cooperative, no acute distress, obese - Respiratory Details: Lungs sounds essentially clear throughout, few scattered crackles to bilateral bases. Respirations are symmetrical and nonlabored. Oxygen saturation are 98 percent on 2 L nasal cannula. Achieving 750 mL on her incentive spirometry. Left pleural and mediastinal chest tubes remain in place to low continuous wall suction -20 cm H2O. No air leak is present. Left pleural chest tube with 25 mL output in the last 8 hours of thin serosanguineous drainage and 80 mL in the last 24 hours. Mediastinal chest tube with 60 mL output in the last 8 hours of thin serosanguineous drainage and 300 mL output in the last 24 hours. - Cardiovascular Details: Regular rhythm and rate. S1 and S2 present, negative for S3, gallop or murmur. Sternum is stable. Heart hugger is in place and she is demonstrating appropriate use. Bedside telemetry showing normal sinus rhythm heart rate 75. Right IJ Cordis in place to continue CVP monitoring, current CVP pressures 6 mmHg. Knee-high MORENO hose and sequential compression devices in place to bilateral lower extremities. Atrial and ventricular epicardial pacemaker wires in place and grounded. Surgical support bra in place. - Gastrointestinal Gastrointestinal Comment(s): Abdomen is soft, nontender and nondistended. Active bowel sounds present in all 4 abdominal quadrants. No guarding or rigidity. Tolerating oral intake. Passing flatus. Bowel movement this a.m. - Genitourinary Genitourinary Comment(s): Guzmán catheter for accurate I&O. Draining clear yellow urine with 345 mL output in the last 8 hours. - Integumentary Integumentary Comment(s): Skin is warm and dry. No clubbing or cyanosis is present. Midline sternal incision is clean, dry and approximated. No drainage or redness is present. Dressing is clean and dry. Right lower extremity EVH site is clean, dry and approximated. No drainage redness present. - Neurologic Neurologic: Present: CNII-XII intact - Musculoskeletal Musculoskeletal: Present: gait normal, generalized weakness, strength equal b ilaterally - Psychiatric Psychiatric: Present: A&O x's 3, appropriate affect, intact judgment & insight - Allied health notes Allied health notes reviewed: nursing - Labs CBC & Chem 7: 07/22/19 04:48 07/22/19 04:48 Labs: Abnormal Lab Results - Last 24 Hours (Table) 07/21/19 07/21/19 07/21/19 Range/Units 11:47 12:46 14:03 RBC (3.80-5.40) m/uL Hgb (11.4-16.0) gm/dL Hct (34.0-46.0) % Plt Count (150-450) k/uL Sodium (137-145) mmol/L Glucose (74-99) mg/dL POC Glucose (mg/dL) 169 H 146 H 131 H (75-99) mg/dL AST (14-36) U/L Alkaline Phosphatase (38-126) U/L Total Protein (6.3-8.2) g/dL Albumin (3.5-5.0) g/dL 07/21/19 07/21/19 07/21/19 Range/Units 15:08 15:58 17:07 RBC (3.80-5.40) m/uL Hgb (11.4-16.0) gm/dL Hct (34.0-46.0) % Plt Count (150-450) k/uL Sodium (137-145) mmol/L Glucose (74-99) mg/dL POC Glucose (mg/dL) 125 H 133 H 149 H (75-99) mg/dL AST (14-36) U/L Alkaline Phosphatase (38-126) U/L Total Protein (6.3-8.2) g/dL Albumin (3.5-5.0) g/dL 07/21/19 07/21/19 07/21/19 Range/Units 18:12 19:03 19:57 RBC (3.80-5.40) m/uL Hgb (11.4-16.0) gm/dL Hct (34.0-46.0) % Plt Count (150-450) k/uL Sodium (137-145) mmol/L Glucose (74-99) mg/dL POC Glucose (mg/dL) 201 H 192 H 166 H (75-99) mg/dL AST (14-36) U/L Alkaline Phosphatase (38-126) U/L Total Protein (6.3-8.2) g/dL Albumin (3.5-5.0) g/dL 07/21/19 07/21/19 07/21/19 Range/Units 20:59 22:19 23:53 RBC (3.80-5.40) m/uL Hgb (11.4-16.0) gm/dL Hct (34.0-46.0) % Plt Count (150-450) k/uL Sodium (137-145) mmol/L Glucose (74-99) mg/dL POC Glucose (mg/dL) 137 H 127 H 115 H (75-99) mg/dL AST (14-36) U/L Alkaline Phosphatase (38-126) U/L Total Protein (6.3-8.2) g/dL Albumin (3.5-5.0) g/dL 07/22/19 07/22/19 07/22/19 Range/Units 01:55 02:53 03:28 RBC (3.80-5.40) m/uL Hgb (11.4-16.0) gm/dL Hct (34.0-46.0) % Plt Count (150-450) k/uL Sodium (137-145) mmol/L Glucose (74-99) mg/dL POC Glucose (mg/dL) 213 H 169 H 153 H (75-99) mg/dL AST (14-36) U/L Alkaline Phosphatase (38-126) U/L Total Protein (6.3-8.2) g/dL Albumin (3.5-5.0) g/dL 07/22/19 07/22/19 07/22/19 Range/Units 04:18 04:48 04:48 RBC 2.84 L (3.80-5.40) m/uL Hgb 8.0 L (11.4-16.0) gm/dL Hct 25.0 L (34.0-46.0) % Plt Count 104 L (150-450) k/uL Sodium 135 L (137-145) mmol/L Glucose 107 H (74-99) mg/dL POC Glucose (mg/dL) 122 H (75-99) mg/dL AST 38 H (14-36) U/L Alkaline Phosphatase 34 L (38-126) U/L Total Protein 5.4 L (6.3-8.2) g/dL Albumin 3.2 L (3.5-5.0) g/dL 07/22/19 07/22/19 07/22/19 Range/Units 04:54 06:04 07:11 RBC (3.80-5.40) m/uL Hgb (11.4-16.0) gm/dL Hct (34.0-46.0) % Plt Count (150-450) k/uL Sodium (137-145) mmol/L Glucose (74-99) mg/dL POC Glucose (mg/dL) 118 H 109 H 174 H (75-99) mg/dL AST (14-36) U/L Alkaline Phosphatase (38-126) U/L Total Protein (6.3-8.2) g/dL Albumin (3.5-5.0) g/dL 07/22/19 07/22/19 07/22/19 Range/Units 08:24 09:15 10:05 RBC (3.80-5.40) m/uL Hgb (11.4-16.0) gm/dL Hct (34.0-46.0) % Plt Count (150-450) k/uL Sodium (137-145) mmol/L Glucose (74-99) mg/dL POC Glucose (mg/dL) 176 H 187 H 157 H (75-99) mg/dL AST (14-36) U/L Alkaline Phosphatase (38-126) U/L Total Protein (6.3-8.2) g/dL Albumin (3.5-5.0) g/dL - Imaging and Cardiology Chest x-ray: report reviewed, image reviewed Assessment and Plan Assessment: 1. Coronary artery disease post 2 vessel coronary artery bypass surgery 2. Acute non-ST elevated myocardial infarction this admission 3. COPD,preoperative FEV1 of 41% predicted according to the bedside spirometry 4. Hypertension 5. Hypothyroidism 6. Hyperlipidemia 7. Insulin-dependent diabetes mellitus 8. Anxiety 9. IBS, diverticulosis 10. Remote history of smoking 11. GERD/reflux 12. Family history of coronary artery disease Plan: 1. Continue aspirin, statin, Plavix, beta gonzález therapy. Will increase metoprolol tartrateas tolerated. 2. Encourage incentive spirometry use 10 times every hour while awake. 3. Increase activity, ambulate as tolerated. PT/OT/cardiac rehab following. 4. Will monitor daily labs and chest x-rays. Electrolyte replacement per pro tocol. No blood transfusion at this time. 5. Pain control with current medication regimen. Discontinue [place]. 6. Insulin management per primary care service. 7. GI/DVT prophylaxis. 8. Bronchodilators per pulmonology management. 9. Discontinue left pleural, mediastinal chest tubes and atrial and ventricular epicardial pacemaker wires. Bedrest for 1 hour post epicardial pacemaker wire removal. 10. Lasix 20 mg IV 1 now. 11. discontinue Guzmán catheter. Bladder scan and straight cath for greater than 300 mL [address] place transfer orders to 3 S. cardiac stepdown unit. May transfer when bed available. 13. Anticipate discharge to home with home care in the next 48 to 72 hours. 14. Discontinue right IJ Cordis. 15. Start melatonin 6 mg when necessary daily at bedtime for insomnia. 16. More recommendations to follow based on patient's clinical course. Time with Patient: Greater than 30
[2019-07-22 11:48] LABS: Glucose,Whole Blood 192 mg/dL (75-99)
[2019-07-22] MEDS: INSULIN ASPART (NovoLOG) 100 UNIT/ML VIAL SQ SCH ×3 (12:30→21:00)
--- NOTE | 2019-07-22 15:28 | P.PN ---
Subjective Progress Note Date: 07/22/19 Principal diagnosis: Multivessel CAD; status post CABG; POD #1 Multivessel coronary artery disease post bypass surgery. The patient was having angina on outpatient basis. She was quite symptomatic. The patient underwent cardiac catheterization and subsequently she was brought in to undergo coronary artery bypass surgery. She is currently postop day #1. The patient is curre ntly extubated. She is post thoracotomy. Chest tubes are all in place. She was weaned off the mechanical ventilator and she was extubated without any major difficulties currently on 2 L of oxygen by nasal cannula. Hemodynamically stable. The chest x-ray from today shows mild pulmonary vessel congestion. Chest tubes are in place. She'll be given Lasix once a blood pressure further stabilizes. She was given IV albumin for low urine output overnight 07/22/2019 Patient is seen and evaluated in follow-up in the intensive care unit. She is currently sitting up in a chair at the bedside. Awake and alert in no acute distress. Sternal wires have been removed. Chest tubes have been removed. She is maintaining good O2 saturations in the 90s on 2 L/m per nasal cannula. She is afebrile. Hemodynamically stable. Maintaining sinus rhythm. White count 6.8. Hemoglobin 8.0. Sodium 135. Potassium 4.3. Creatinine 0.70. Chest x-ray reveals persistent cardiomegaly and left basilar atelectasis with some mild vascular congestion. She continues to work well with the incentive spirometer. She is tolerating her diet. She is currently on insulin drip at 5 units per hour. Glucose 187. Objective - Vital Signs Vital signs: Vital Signs Temp 100.0 F H 07/22/19 12:00 Pulse 76 07/22/19 12:00 Resp 21 07/22/19 12:00 BP 107/60 07/22/19 12:00 Pulse Ox 92 L 07/22/19 12:00 Intake & Output 07/21/19 07/22/19 07/22/19 18:59 06:59 18:59 Intake Total 641.451 541.142 209.035 Output Total 885 934 0 Balance -243.549 -392.858 209.035 Weight 74.5 kg 84.2 kg Intake: IV 594 516 203 Lactated Ringers 1,000 ml 470 480 200 @ 20 mls/hr IV .Q24H SALLY Rx#:[id number] Normal Saline Pressure 54 36 3 Bag ceFAZolin 2 gm In Sodium 50 Chloride 0.9% 50 ml @ 100 mls/hr IVPB Q8H SALLY Rx#: [id number] co/ci 20 Intake, IV Titration 47.451 25.142 6.035 Amount Insulin Regular 100 unit 20.376 25.142 6.035 In Sodium Chloride 0.9% 100 ml @ Per Protocol IV .Q0M SALLY Rx#:[id number] Nitroglycerin-D5w Pmx 50 27.075 mg In Dextrose/Water 1 250ml.bag @ 5 MCG/MIN 1.5 mls/hr IV .Q24H SALLY Rx#: [id number] Output: Chest Tube Drainage 228 154 Left Pleural 48 54 Mediastinal x2 180 100 Urine 657 780 0 Other: Voiding Method Indwelling Catheter Indwelling Catheter Bedside Commode # Voids 0 1 # Bowel Movements 1 ABP, PAP, CO, CI - Last Documented Arterial Blood Pressure 121/57 Pulmonary Artery Pressure 48/25 Cardiac Output 4.3 Cardiac Index 2.4 - Exam PHYSICAL EXAMINATION: GENERAL: The patient is alert and oriented x3, not in any acute distress. Well developed, well nourished. HEENT: Pupils are round and equally reacting to light. EOMI. No scleral icterus. No conjunctival pallor. Normocephalic, atraumatic. No pharyngeal erythema. No thyromegaly. CARDIOVASCULAR: S1 and S2 present. No murmurs, rubs, or gallops. PULMONARY: Chest is clear to auscultation, no wheezing or crackles. ABDOMEN: Soft, nontender, nondistended, normoactive bowel sounds. No palpable organomegaly. MUSCULOSKELETAL: No joint swelling or deformity. EXTREMITIES: No cyanosis, clubbing, or pedal edema. NEUROLOGICAL: Gross neurological examination did not reveal any focal deficits. SKIN: No rashes. - Labs CBC & Chem 7: 07/22/19 04:48 07/22/19 04:48 Labs: Abnormal Lab Results - Last 24 Hours (Table) 07/21/19 07/21/19 07/21/19 Range/Units 14:03 15:08 15:58 RBC (3.80-5.40) m/uL Hgb (11.4-16.0) gm/dL Hct (34.0-46.0) % Plt Count (150-450) k/uL Sodium (137-145) mmol/L Glucose (74-99) mg/dL POC Glucose (mg/dL) 131 H 125 H 133 H (75-99) mg/dL AST (14-36) U/L Alkaline Phosphatase (38-126) U/L Total Protein (6.3-8.2) g/dL Albumin (3.5-5.0) g/dL 07/21/19 07/21/19 07/21/19 Range/Units 17:07 18:12 19:03 RBC (3.80-5.40) m/uL Hgb (11.4-16.0) gm/dL Hct (34.0-46.0) % Plt Count (150-450) k/uL Sodium (137-145) mmol/L Glucose (74-99) mg/dL POC Glucose (mg/dL) 149 H 201 H 192 H (75-99) mg/dL AST (14-36) U/L Alkaline Phosphatase (38-126) U/L Total Protein (6.3-8.2) g/dL Albumin (3.5-5.0) g/dL 07/21/19 07/21/19 07/21/19 Range/Units 19:57 20:59 22:19 RBC (3.80-5.40) m/uL Hgb (11.4-16.0) gm/dL Hct (34.0-46.0) % Plt Count (150-450) k/uL Sodium (137-145) mmol/L Glucose (74-99) mg/dL POC Glucose (mg/dL) 166 H 137 H 127 H (75-99) mg/dL AST (14-36) U/L Alkaline Phosphatase (38-126) U/L Total Protein (6.3-8.2) g/dL Albumin (3.5-5.0) g/dL 07/21/19 07/22/19 07/22/19 Range/Units 23:53 01:55 02:53 RBC (3.80-5.40) m/uL Hgb (11.4-16.0) gm/dL Hct (34.0-46.0) % Plt Count (150-450) k/uL Sodium (137-145) mmol/L Glucose (74-99) mg/dL POC Glucose (mg/dL) 115 H 213 H 169 H (75-99) mg/dL AST (14-36) U/L Alkaline Phosphatase (38-126) U/L Total Protein (6.3-8.2) g/dL Albumin (3.5-5.0) g/dL 07/22/19 07/22/19 07/22/19 Range/Units 03:28 04:18 04:48 RBC 2.84 L (3.80-5.40) m/uL Hgb 8.0 L (11.4-16.0) gm/dL Hct 25.0 L (34.0-46.0) % Plt Count 104 L (150-450) k/uL Sodium (137-145) mmol/L Glucose (74-99) mg/dL POC Glucose (mg/dL) 153 H 122 H (75-99) mg/dL AST (14-36) U/L Alkaline Phosphatase (38-126) U/L Total Protein (6.3-8.2) g/dL Albumin (3.5-5.0) g/dL 07/22/19 07/22/19 07/22/19 Range/Units 04:48 04:54 06:04 RBC (3.80-5.40) m/uL Hgb (11.4-16.0) gm/dL Hct (34.0-46.0) % Plt Count (150-450) k/uL Sodium 135 L (137-145) mmol/L Glucose 107 H (74-99) mg/dL POC Glucose (mg/dL) 118 H 109 H (75-99) mg/dL AST 38 H (14-36) U/L Alkaline Phosphatase 34 L (38-126) U/L Total Protein 5.4 L (6.3-8.2) g/dL Albumin 3.2 L (3.5-5.0) g/dL 07/22/19 07/22/19 07/22/19 Range/Units 07:11 08:24 09:15 RBC (3.80-5.40) m/uL Hgb (11.4-16.0) gm/dL Hct (34.0-46.0) % Plt Count (150-450) k/uL Sodium (137-145) mmol/L Glucose (74-99) mg/dL POC Glucose (mg/dL) 174 H 176 H 187 H (75-99) mg/dL AST (14-36) U/L Alkaline Phosphatase (38-126) U/L Total Protein (6.3-8.2) g/dL Albumin (3.5-5.0) g/dL 07/22/19 07/22/19 Range/Units 10:05 11:47 RBC (3.80-5.40) m/uL Hgb (11.4-16.0) gm/dL Hct (34.0-46.0) % Plt Count (150-450) k/uL Sodium (137-145) mmol/L Glucose (74-99) mg/dL POC Glucose (mg/dL) 157 H 192 H (75-99) mg/dL AST (14-36) U/L Alkaline Phosphatase (38-126) U/L Total Protein (6.3-8.2) g/dL Albumin (3.5-5.0) g/dL Assessment and Plan Assessment: 1. Multivessel coronary artery disease post bypass surgery; postop day #1. The patient is currently extubated. She is post thoracotomy. Chest tubes are all in place. She was weaned off the mechanical ventilator and she was extubated without any major difficulties currently on 2 L of oxygen by nasal cannula. Hemodynamically stable. The chest x-ray from today shows mild pulmonary vessel congestion. Chest tubes are in place. She'll be given Lasix once a blood pressure further stabilizes. She was given IV albumin for low urine output overnight. 2. Acute non-ST elevated myocardial infarction; status post cardiac catheterization 3. COPD; not in exacerbation; FEV1 of 41% predicted according to the bedside spirometry, the patient is currently using incentive spirometer 4. Hypertension, current BP is under better control; continue with hydralazine 20 mg IV every 4 hours when necessary 5. Hypothyroidism; levothyroxin 100 MCG daily 6. Hyperlipidemia; continue with home dose of statin therapy 7. Insulin-dependent diabetes mellitus, currently on insulin drip for blood sugar control DVT prophylaxis; subcu heparin CODE STATUS; full code
[2019-07-22 17:01] LABS: Glucose,Whole Blood 228 mg/dL (75-99)
[2019-07-22] MEDS: BENZOCAINE/MENTHOL LOZENG 1 EACH LOZENGE MUCOUS MEM PRN (19:50)
[2019-07-22 20:39] LABS: Glucose,Whole Blood 279 mg/dL (75-99)
[2019-07-22] MEDS ORDERED: MELATONIN 3 MG TABLET PO PRN (21:00)
[2019-07-22] MEDS: SENNOSIDES-DOCUSATE SODIUM 1 EACH TAB PO SCH (21:01)
[2019-07-22] MEDS: ACETAMINOPHEN TAB 500 MG TAB PO PRN (22:00)
[2019-07-23] MEDS: PANTOPRAZOLE 40 MG TABLET PO SCH (05:57)
[2019-07-23] MEDS: KETOROLAC 30 MG/ML 1 ML VIAL IVP SCH ×4 (05:57→23:41)
[2019-07-23] MEDS: HEPARIN SODIUM,PORCINE 5,000 UNIT/ML 1 ML VIAL SQ SCH ×3 (05:57→20:55)
[2019-07-23] MEDS: LEVOTHYROXINE 100 MCG TAB PO SCH (05:58)
[2019-07-23 06:12] LABS: HCT 23.8 % (34.0-46.0); HGB 7.8 gm/dL (11.4-16.0); MCHC 32.7 g/dL (31.0-37.0); MCV 88.9 fL (80.0-100.0); Mean Platelet Volume 9.1; Platelet Count 124 k/uL (150-450); RBC 2.68 m/uL (3.80-5.40); RDW 14.9 % (11.5-15.5); WBC 6.5 k/uL (3.8-10.6)
[2019-07-23 06:18] LABS: Glucose,Whole Blood 205 mg/dL (75-99)
[2019-07-23 06:34] LABS: ALT 15 U/L (4-34); AST 27 U/L (14-36); African American GFR (CKD) >90 (>60 ml/min/1.73 sqM); Albumin 2.7 g/dL (3.5-5.0); Alkaline Phosphatase 40 U/L (38-126); Anion Gap 1 mmol/L; Blood Urea Nitrogen 20 mg/dL (7-17); Calcium 8.4 mg/dL (8.4-10.2); Carbon Dioxide 28 mmol/L (22-30); Chloride 104 mmol/L (98-107); Glucose 181 mg/dL (74-99); Non-African American GFR(CKD) 80 (>60 ml/min/1.73 sqM); Potassium 4.4 mmol/L (3.5-5.1); Sodium 133 mmol/L (137-145); Total Bilirubin 0.4 mg/dL (0.2-1.3); Total Protein 4.9 g/dL (6.3-8.2)
[2019-07-23] MEDS: INSULIN ASPART (NovoLOG) 100 UNIT/ML VIAL SQ SCH ×4 (06:47→20:55)
[2019-07-23] MEDS: CLOPIDOGREL 75 MG TAB PO SCH (08:19)
[2019-07-23] MEDS: ATORVASTATIN 40 MG TAB PO SCH (08:19)
[2019-07-23] MEDS: METOPROLOL TARTRATE 25 MG TAB PO SCH ×2 (08:19→20:55)
[2019-07-23] MEDS: ASPIRIN 325 MG TAB PO SCH (08:19)
[2019-07-23] MEDS: IPRATROPIUM-ALBUTEROL 3 ML NEB INHALATION SCH ×4 (08:36→20:31)
--- NOTE | 2019-07-23 08:53 | XR ---
EXAMINATION TYPE: XR chest 2V DATE OF EXAM: 07/23/2019 COMPARISON: 07/22/2019 HISTORY: 73-year-old female postoperative CABG TECHNIQUE: PA and lateral views FINDINGS: Median sternotomy wires are present with postoperative changes in the mediastinum. Heart remains bord val enlarged. Diffuse interstitial densities. Improving aeration at the left base. Removal of the left-sided chest tube. Small left effusion remains. No appreciable pneumothorax. IMPRESSION: 1. Residual mild pulmonary vascular congestion, similar to prior. 2. Improvement in aeration at the left base with residual small left pleural effusion.
[2019-07-23] MEDS ORDERED: FUROSEMIDE 10 MG/ML 2 ML VIAL IV ONE (10:06)
[2019-07-23] MEDS: INSULIN NPH 300 UNIT/3 ML VIAL SQ SCH ×2 (10:28→20:56)
[2019-07-23 12:03] LABS: Glucose,Whole Blood 188 mg/dL (75-99)
--- NOTE | 2019-07-23 12:20 | P.PN ---
Subjective Progress Note Date: 07/23/19 Principal diagnosis: Coronary artery disease, non-STEMI this admission. Past medical history signifiacant for hypertension, hyperlipidemia, insulin dependent diabetes mellitus with preoperative hemoglobin A1c 8.7%, severe lung disease with preoperative FEV1 41% of predicted hypothyroidism, anxiety, IBS, diverticulosis, GERD, previous social tobacco use, and family history of coronary artery disease. POD #3 coronary bypass grafting 2 vessels, left internal mammary artery to the left anterior descending coronary artery, a reverse greater saphenous vein graft to the posterior descending coronary artery, endoscopic harvesting of the right greater saphenous vein, epi-aortic ultrasound, intraoperative transesophageal echocardiogram and ligation of the left atrial appendage using 35 mm AtriClip. Postoperative acute blood loss anemia, expected outcome of surgery given hem odilution and cardiopulmonary bypass pump. The patient is currently sitting up to the bedside chair on the cardiac stepdown unit. She is in no acute distress. Denies any complaints of pain or shortness of breath at this time. She reports she just ambulated [place] of the intensive care unit hallway without difficulty yesterday 3 with assistance from nursing staff in the intensive care unit. Remote telemetry showing normal sinus rhythm heart rate 74. Oxygen saturation is 96% on room air and she is achieving 750 mL on her incentive spirometry with encouragement. Chest x-ray was completed this morning which shows residual mild pulmonary vascular congestion and improvement in aeration at the left base with residual small pleural effusion. Objective - Vital Signs Vital signs: Vital Signs Temp 98.1 F 07/23/19 11:14 Pulse 76 07/23/19 11:59 Resp 16 07/23/19 11:14 BP 128/58 07/23/19 11:14 Pulse Ox 96 07/23/19 11:14 Intake & Output 07/22/19 07/23/19 07/23/19 17:59 06:59 18:59 Intake Total Output Total Balance Weight Intake: IV Lactated Ringers 1,000 ml @ 20 mls/hr IV .Q24H SALLY Rx#:[id number] Normal Saline Pressure Bag Intake, IV Titration Amount Insulin Regular 100 unit In Sodium Chloride 0.9% 100 ml @ Per Protocol IV .Q0M SALLY Rx#:[id number] Oral Output: Urine Other: Voiding Method Bedside Commode # Voids # Bowel Movements ABP, PAP, CO, CI - Last Documented Arterial Blood Pressure 121/57 Pulmonary Artery Pressure 48/25 Cardiac Output 4.3 Cardiac Index 2.4 - Constitutional General appearance: Present: cooperative, no acute distress, obese - Respiratory Details: Lungs sounds essentially clear throughout, few scattered crackles to bilateral bases. Respirations are symmetrical and nonlabored. Oxygen saturation are 96 on room air. Achieving 750 mL on her incentive spirometry. - Cardiovascular Details: Regular rhythm and rate. S1 and S2 present, negative for S3, gallop or murmur. Sternum is stable. Heart hugger is in place and she is demonstrating appro priate use. Remote telemetry showing normal sinus rhythm heart rate 74. Knee- high MORENO hose and sequential compression devices in place to her bilateral lower extremities. - Gastrointestinal Gastrointestinal Comment(s): Abdomen is soft, nontender and nondistended. Active bowel sounds present in all 4 abdominal quadrants. No guarding or rigidity. Tolerating oral intake. - Genitourinary Genitourinary Comment(s): Voiding clear yellow urine. - Integumentary Integumentary Comment(s): Skin is warm and dry. No clubbing or cyanosis is present. Midline sternal incision is clean, dry and approximated. No drainage or redness is present. Dressing is clean and dry. Right lower extremity EVH site is clean, dry and approximated. No drainage redness present. - Neurologic Neurologic Comment(s): No focal neurological deficits. Neurologic: Present: CNII-XII intact - Musculoskeletal Musculoskeletal: Present: gait normal, generalized weakness, strength equal bilaterally - Psychiatric Psychiatric: Present: A&O x's 3, appropriate affect, intact judgment & insight - Allied health notes Allied health notes reviewed: nursing - Labs CBC & Chem 7: 07/23/19 05:42 07/23/19 05:42 Labs: Abnormal Lab Results - Last 24 Hours (Table) 07/22/19 07/22/19 07/22/19 Range/Units 11:47 16:59 20:38 RBC (3.80-5.40) m/uL Hgb (11.4-16.0) gm/dL Hct (34.0-46.0) % Plt Count (150-450) k/uL Sodium (137-145) mmol/L BUN (7-17) mg/dL Glucose (74-99) mg/dL POC Glucose (mg/dL) 192 H 228 H 279 H (75-99) mg/dL Total Protein (6.3-8.2) g/dL Albumin (3.5-5.0) g/dL 07/23/19 07/23/19 07/23/19 Range/Units 05:42 05:42 06:16 RBC 2.68 L (3.80-5.40) m/uL Hgb 7.8 L (11.4-16.0) gm/dL Hct 23.8 L (34.0-46.0) % Plt Count 124 L (150-450) k/uL Sodium 133 L (137-145) mmol/L BUN 20 H (7-17) mg/dL Glucose 181 H (74-99) mg/dL POC Glucose (mg/dL) 205 H (75-99) mg/dL Total Protein 4.9 L (6.3-8.2) g/dL Albumin 2.7 L (3.5-5.0) g/dL 07/23/19 Range/Units 12:01 RBC (3.80-5.40) m/uL Hgb (11.4-16.0) gm/dL Hct (34.0-46.0) % Plt Count (150-450) k/uL Sodium (137-145) mmol/L BUN (7-17) mg/dL Glucose (74-99) mg/dL POC Glucose (mg/dL) 188 H (75-99) mg/dL Total Protein (6.3-8.2) g/dL Albumin (3.5-5.0) g/dL - Imaging and Cardiology Chest x-ray: report reviewed, image reviewed Assessment and Plan Assessment: 1. Coronary artery disease post 2 vessel coronary artery bypass surgery 2. Acute non-ST elevated myocardial infarction this admission 3. COPD,preoperative FEV1 of 41% predicted according to the bedside spirometry 4. Hypertension 5. Hypothyroidism 6. Hyperlipidemia 7. Insulin-dependent diabetes mellitus 8. Anxiety 9. IBS, diverticulosis 10. Remote history of smoking 11. GERD/reflux 12. Family history of coronary artery disease Plan: 1. Continue aspirin, statin, Plavix, beta gonzález therapy. Will increase metoprolol tartrateas tolerated. 2. Encourage incentive spirometry use 10 times every hour while awake. 3. Increase activity, ambulate as tolerated. PT/OT/cardiac rehab following. 4. Will monitor daily labs and chest x-rays. Electrolyte replacement per protocol. No blood transfusion at this time. 5. Pain control with current medication regimen. 6. Insulin management per primary care service. 7. GI/DVT prophylaxis. 8. Bronchodilators per pulmonology management. 9. Lasix 20 mg IV 1 now. 10. Anticipate discharge to home with home care in the next 24-48 hours. 11. Continue melatonin 6 mg when necessary daily at bedtime for insomnia. 12. More recommendations to follow based on patient's clinical course. Time with Patient: Greater than 30
[2019-07-23] MEDS: ACETAMINOPHEN TAB 500 MG TAB PO PRN (13:02)
--- NOTE | 2019-07-23 13:59 | PN ---
PROGRESS NOTE Ms. Varela is a 73-year-old female who underwent coronary artery bypass grafting. She is feeling tired today. Did not sleep well. Otherwise, she is denying any chest pain. She denies any dizziness or palpitations. She continues to be in sinus mechanism. She is scheduled to take a walk later on in the afternoon. She continues to be at this time on aspirin once a day, 40 mg daily, Plavix 75 mg daily, metoprolol tartrate 25 mg twice a day. PHYSICAL EXAMINATION: Blood pressure 128/50 with a heart rate of 70. LUNGS: Mild crackles at the bases with no wheezes. HEART: Regular rate and rhythm. S1, S2. No S3. No rub appreciated. ABDOMEN: Soft, nontender. EXTREMITIES: Trace edema. LABORATORY DATA: BUN and creatinine 20 and 0.7, potassium 4.4. Hemoglobin is 7.8. IMPRESSION: 1. Status post coronary artery bypass grafting, stable. 2. Hyperlipidemia. 3. Hypertension. 4. Diabetes. RECOMMENDATIONS: The patient will continue to increase his level of activity. Continue incentive spirometry and, hopefully, will be able to be discharged home in the next 48 hours. MMODL / IJN: [id number] /
--- NOTE | 2019-07-23 15:31 | P.PN ---
Subjective Progress Note Date: 07/23/19 On today's evaluation of 07/20/2019 the patient is being seen in intensive care unit following bypass surgery. The patient underwent [place] to LAD and SVG to PDA along with left atrial appendage clipping. Postop, the patient was brought into the intensive care unit. Chest x-ray showed adequate positioning of the ET tube. Lungs are well expanded and there was no evidence of any pneumothorax. The patient has a mediastinal and left pleural chest tube. There are 2 mediastinal chest tubes for now. Overall output from the fumes have been minimal, as the patient is producing 50 mL from the mediastinal chest tube and 100 mL from the pleural chest tube. The cardiac output is 6.7 with an index of 3.8. Pulmonary artery pressures are 37/20. The patient was gradually weaned off the mechanical ventilator. I was able to give this patient spontaneous breathing trial with a pressure support of 5 and a PEEP of 5 for a total of 30 minutes. The blood gases was obtained at the end of the breathing trial showed a pH of 7.37 with a pCO2 of 40 and pO2 of 89. The weaning parameters were all adequate. Based on that, the patient was extubated. Currently she is still drowsy and sleepy. She is on oxygen at 4 L per minute nasal cannula. Her cardiac rhythm is sinus and the low 80s. She is producing adequate amount of urine output. Blood pressure is elevated and the patient is currently a on a combination of Cleviprex 6 mg/h and nitroglycerin at 5 g per KG per minute. Urine output is nor that of 30 mL an hour. The patient is on insulin drip at 7 units an hour. She is moving all 4 extremities and she is calm and comfortable to. Sternum is dry clean and intact. No other significant events otherwise for now. On today's evaluation of 07/21/2019 and seen For a Follow-Up. She Did Extremely Well. I Was Able to Extubate Her around 6 PM Yesterday without Any Major Difficulties. Currently She Is on Oxygen at 4 L Per Minute Nasal Cannula. This Was Further weaned down to 2 L per minute. Her chest x-ray shows some mild pulmonary vascular congestion. She did have some low urine output. She was given albumin 250 mL yesterday afternoon and overnight she received another 500. Her urine output is improved as is being my monitored. The most recent cardiac output was 4.3 with an index of 2.4. The [place]Jackeline catheter has been removed. The chest tubes are essentially dry. There is no evidence of any air leak at this point in time. No major swelling lower extremities. Sternum stable clean and intact. The right IJ cordis is still in place. No cardiac arrhythmias. The cardiac rhythm is sinus. She is on insulin 4.5 units an hour. She is using incentive spirometer and she is pulling approximately 500. She is taking full liquid diet including popsicles and Jell-O's. The patient is seen today 07/22/2019 in follow-up in the intensive care unit. She is currently sitting up in a chair at the bedside. Awake and alert in no acute distress. Sternal wires have been removed. Chest tubes have been removed. She is maintaining good O2 saturations in the 90s on 2 L/m per nasal cannula. She is afebrile. Hemodynamically stable. Maintaining sinus rhythm. White count 6.8. Hemoglobin 8.0. Sodium 135. Potassium 4.3. Creatinine 0.70. Chest x-ray reveals persistent cardiomegaly and left basilar atelectasis with some mild vascular congestion. She continues to work well with the incentive spirometer. She is tolerating her diet. She is currently on insulin drip at 5 units per hour. Glucose 187. The patient was seen today 07/23/2019 in follow-up on the selective care unit. She is awake and alert in no acute distress. Currently sitting up in a chair at the bedside. No worsening shortness of breath, cough or congestion. No chills or night sweats. Up ambulating in the hallway without acute distress. Chest x- ray reveals residual mild pulmonary vascular congestion. Improvement in aeration at the left base with residual small left pleural effusion. White count 6.8. Hemoglobin 7.8. Sodium 133. Creatinine 0.75. She continues to work well with the incentive spirometer. Objective - Vital Signs Vital signs: Vital Signs Temp 98.1 F 07/23/19 11:14 Pulse 76 07/23/19 11:59 Resp 16 07/23/19 11:14 BP 128/58 07/23/19 11:14 Pulse Ox 96 07/23/19 11:14 Intake & Output 07/22/19 07/23/19 07/23/19 17:59 06:59 18:59 Intake Total 180 Output Total 1200 Balance -1020 Weight Intake: IV Lactated Ringers 1,000 ml @ 20 mls/hr IV .Q24H SALLY Rx#:[id number] Normal Saline Pressure Bag Intake, IV Titration Amount Insulin Regular 100 unit In Sodium Chloride 0.9% 100 ml @ Per Protocol IV .Q0M SALLY Rx#:[id number] Oral 180 Output: Urine 1200 Other: Voiding Method Bedside Commode # Voids # Bowel Movements 0 ABP, PAP, CO, CI - Last Documented Arterial Blood Pressure 121/57 Pulmonary Artery Pressure 48/25 Cardiac Output 4.3 Cardiac Index 2.4 - Exam GENERAL EXAM: Alert, very pleasant 73-year-old female patient, up in the chair at the bedside. On room air. Comfortable in no apparent distress. HEAD: Normocephalic. EYES: Normal reaction of pupils, equal size. NOSE: Clear with pink turbinates. THROAT: No erythema or exudates. NECK: No masses, no JVD. CHEST: Sternal dressing dry and intact. Heart Hugger in place. Pacer wires removed today. LUNGS: Equal air entry with crackles in left posterior base. Chest tubes removed. CVS: S1 and S2 normal with no audible murmur, regular rhythm. ABDOMEN: No hepatosplenomegaly, normal bowel sounds, no guarding or rigidity. SPINE: No scoliosis or deformity SKIN: No rashes CENTRAL NERVOUS SYSTEM: No focal deficits, tone is normal in all 4 extremities. EXTREMITIES: There is trace peripheral edema. No clubbing, no cyanosis. Peripheral pulses are intact. SCDs in place. - Labs CBC & Chem 7: 07/23/19 05:42 07/23/19 05:42 Labs: Abnormal Lab Results - Last 24 Hours (Table) 07/22/19 07/22/19 07/23/19 Range/Units 16:59 20:38 05:42 RBC 2.68 L (3.80-5.40) m/uL Hgb 7.8 L (11.4-16.0) gm/dL Hct 23.8 L (34.0-46.0) % Plt Count 124 L (150-450) k/uL Sodium (137-145) mmol/L BUN (7-17) mg/dL Glucose (74-99) mg/dL POC Glucose (mg/dL) 228 H 279 H (75-99) mg/dL Total Protein (6.3-8.2) g/dL Albumin (3.5-5.0) g/dL 07/23/19 07/23/19 07/23/19 Range/Units 05:42 06:16 12:01 RBC (3.80-5.40) m/uL Hgb (11.4-16.0) gm/dL Hct (34.0-46.0) % Plt Count (150-450) k/uL Sodium 133 L (137-145) mmol/L BUN 20 H (7-17) mg/dL Glucose 181 H (74-99) mg/dL POC Glucose (mg/dL) 205 H 188 H (75-99) mg/dL Total Protein 4.9 L (6.3-8.2) g/dL Albumin 2.7 L (3.5-5.0) g/dL Assessment and Plan Assessment: 1 Multivessel coronary artery disease post bypass surgery. The patient was having angina on outpatient basis. She was quite symptomatic. The patient underwent cardiac catheterization and subsequently she was brought in to undergo coronary artery bypass surgery. She is currently postop day #3. The patient is currently extubated. She is post thoracotomy. Chest tubes have been removed. Currently on room air. Hemodynamically stable. The chest x-ray from today shows mild pulmonary vessel congestion. 2. Acute non-ST elevated myocardial infarction 3. COPD, FEV1 of 41% predicted according to the bedside spirometry, the patient is currently using incentive spirometer 4. Hypertension, current BP is under better control 5. Hypothyroidism 6. Hyperlipidemia 7. Insulin-dependent diabetes mellitus, currently on insulin drip for blood sugar control 8. Anxiety 9. IBS, diverticulosis 10. Former smoker 11. GERD/reflux Plan The patient was seen and evaluated by Dr. Sheppard. Chest x-ray reviewed. Maintaining good O2 saturations in the 90s on room air. Continue to work with the incentive spirometer. Increase her activity as tolerated. We'll continue to follow and make further recommendations based on her clinical status. I, the cosigning physician, performed a history & physical examination of the patient. Lungs sounds with crackles in the left base. Maintaining good O2 saturations in the 90s on room air. I discussed the assessment and plan of care with my nurse practitioner, Peg Leo. I attest to the above note as dictated by her.
[2019-07-23 17:09] LABS: Glucose,Whole Blood 184 mg/dL (75-99)
--- NOTE | 2019-07-23 17:19 | P.PN ---
Subjective Progress Note Date: 07/23/19 Principal diagnosis: Multivessel CAD; status post CABG; POD #1 Multivessel coronary artery disease post bypass surgery. The patient was having angina on outpatient basis. She was quite symptomatic. The patient underwent cardiac catheterization and subsequently she was brought in to undergo coronary artery bypass surgery. She is currently postop day #1. The patient is curre ntly extubated. She is post thoracotomy. Chest tubes are all in place. She was weaned off the mechanical ventilator and she was extubated without any major difficulties currently on 2 L of oxygen by nasal cannula. Hemodynamically stable. The chest x-ray from today shows mild pulmonary vessel congestion. Chest tubes are in place. She'll be given Lasix once a blood pressure further stabilizes. She was given IV albumin for low urine output overnight 07/22/2019 Patient is seen and evaluated in follow-up in the intensive care unit. She is currently sitting up in a chair at the bedside. Awake and alert in no acute distress. Sternal wires have been removed. Chest tubes have been removed. She is maintaining good O2 saturations in the 90s on 2 L/m per nasal cannula. She is afebrile. Hemodynamically stable. Maintaining sinus rhythm. White count 6.8. Hemoglobin 8.0. Sodium 135. Potassium 4.3. Creatinine 0.70. Chest x-ray reveals persistent cardiomegaly and left basilar atelectasis with some mild vascular congestion. She continues to work well with the incentive spirometer. She is tolerating her diet. She is currently on insulin drip at 5 units per hour. Glucose 187. 07/23/2019 Patient is seen and evaluated in selective care in follow-up on the selective care unit. She is awake and alert in no acute distress. Currently sitting up in a chair at the bedside. No worsening shortness of breath, cough or congestion. No chills or night sweats. Up ambulating in the hallway without acute distress. Chest x-ray reveals residual mild pulmonary vascular congestion. Improvement in aeration at the left base with residual small left pleural effusion. White count 6.8. Hemoglobin 7.8. Sodium 133. Creatinine 0.75. She continues to work well with the incentive spirometer. Continued to increase activity with physical therapy; discharge planning per primary service Objective - Vital Signs Vital signs: Vital Signs Temp 98.1 F 03/08/20 11:14 Pulse 76 07/23/19 11:59 Resp 16 07/23/19 11:14 BP 128/58 07/23/19 11:14 Pulse Ox 96 07/23/19 11:14 Intake & Output 07/22/19 07/23/19 07/23/19 17:59 06:59 18:59 Intake Total 180 Output Total 1200 Balance -1020 Weight Intake: IV Lactated Ringers 1,000 ml @ 20 mls/hr IV .Q24H SALLY Rx#:[id number] Normal Saline Pressure Bag Intake, IV Titration Amount Insulin Regular 100 unit In Sodium Chloride 0.9% 100 ml @ Per Protocol IV .Q0M SALLY Rx#:[id number] Oral 180 Output: Urine 1200 Other: Voiding Method Bedside Commode # Voids # Bowel Movements 0 ABP, PAP, CO, CI - Last Documented Arterial Blood Pressure 121/57 Pulmonary Artery Pressure 48/25 Cardiac Output 4.3 Cardiac Index 2.4 - Exam PHYSICAL EXAMINATION: GENERAL: The patient is alert and oriented x3, not in any acute distress. Well developed, well nourished. HEENT: Pupils are round and equally reacting to light. EOMI. No scleral icterus. No conjunctival pallor. Normocephalic, atraumatic. No pharyngeal erythema. No thyromegaly. CARDIOVASCULAR: S1 and S2 present. No murmurs, rubs, or gallops. PULMONARY: Chest is clear to auscultation, no wheezing or crackles. ABDOMEN: Soft, nontender, nondistended, normoactive bowel sounds. No palpable organomegaly. MUSCULOSKELETAL: No joint swelling or deformity. EXTREMITIES: No cyanosis, clubbing, or pedal edema. NEUROLOGICAL: Gross neurological examination did not reveal any focal deficits. SKIN: No rashes. - Labs CBC & Chem 7: 07/23/19 05:42 07/23/19 05:42 Labs: Abnormal Lab Results - Last 24 Hours (Table) 07/22/19 07/22/19 07/23/19 Range/Units 16:59 20:38 05:42 RBC 2.68 L (3.80-5.40) m/uL Hgb 7.8 L (11.4-16.0) gm/dL Hct 23.8 L (34.0-46.0) % Plt Count 124 L (150-450) k/uL Sodium (137-145) mmol/L BUN (7-17) mg/dL Glucose (74-99) mg/dL POC Glucose (mg/dL) 228 H 279 H (75-99) mg/dL Total Protein (6.3-8.2) g/dL Albumin (3.5-5.0) g/dL 07/23/19 07/23/19 07/23/19 Range/Units 05:42 06:16 12:01 RBC (3.80-5.40) m/uL Hgb (11.4-16.0) gm/dL Hct (34.0-46.0) % Plt Count (150-450) k/uL Sodium 133 L (137-145) mmol/L BUN 20 H (7-17) mg/dL Glucose 181 H (74-99) mg/dL POC Glucose (mg/dL) 205 H 188 H (75-99) mg/dL Total Protein 4.9 L (6.3-8.2) g/dL Albumin 2.7 L (3.5-5.0) g/dL Assessment and Plan Assessment: 1. Multivessel coronary artery disease post bypass surgery; postop day #1. The patient is currently extubated. She is post thoracotomy. Chest tubes are all in place. She was weaned off the mechanical ventilator and she was extubate d without any major difficulties currently on 2 L of oxygen by nasal cannula. Hemodynamically stable. The chest x-ray from today shows mild pulmonary vessel congestion. Chest tubes are in place. She'll be given Lasix once a blood pressure further stabilizes. She was given IV albumin for low urine output overnight. 2. Acute non-ST elevated myocardial infarction; status post cardiac catheteri zation 3. COPD; not in exacerbation; FEV1 of 41% predicted according to the bedside spirometry, the patient is currently using incentive spirometer 4. Hypertension, current BP is under better control; continue with hydralazine 20 mg IV every 4 hours when necessary 5. Hypothyroidism; levothyroxin 100 MCG daily 6. Hyperlipidemia; continue with home dose of statin therapy 7. Insulin-dependent diabetes mellitus, currently on insulin drip for blood sugar control DVT prophylaxis; subcu heparin CODE STATUS; full code
[2019-07-23 20:27] LABS: Glucose,Whole Blood 249 mg/dL (75-99)
[2019-07-23] MEDS: SENNOSIDES-DOCUSATE SODIUM 1 EACH TAB PO SCH (20:55)
[2019-07-24] MEDS: BENZOCAINE/MENTHOL LOZENG 1 EACH LOZENGE MUCOUS MEM PRN ×2 (00:52→22:05)
[2019-07-24] MEDS: LEVOTHYROXINE 100 MCG TAB PO SCH (06:00)
[2019-07-24] MEDS: HEPARIN SODIUM,PORCINE 5,000 UNIT/ML 1 ML VIAL SQ SCH ×3 (06:00→20:53)
[2019-07-24] MEDS: PANTOPRAZOLE 40 MG TABLET PO SCH (06:00)
[2019-07-24] MEDS: KETOROLAC 30 MG/ML 1 ML VIAL IVP SCH ×4 (06:00→23:39)
[2019-07-24 06:06] LABS: Glucose,Whole Blood 153 mg/dL (75-99)
[2019-07-24] MEDS: INSULIN ASPART (NovoLOG) 100 UNIT/ML VIAL SQ SCH ×4 (06:37→21:13)
--- NOTE | 2019-07-24 06:56 | P.PN ---
Subjective Pema Portillo 73 y.o.femalewho presented to [facility] 07[facility] with complaint of chest tightness and pain, 7 out of 10 in severity which is been ongoing for the last 5 to 6 weeks. With tightness to her left arm. Serial cardiac enzymes elevated, trending up to 0.353. EKG showing sinus rhythm no ST depression, noQ wave. Chest x-ray no acute process. proBNP 2354. Magnesium critically low at 0.9, replacement given. CBC unremarkable. Patient was started on aspirin,placed on IV heparin, Nitropaste was applied. Vital signs stable. Patient underwent cardiac catheterization on 07/17/2019which showed significant 3 vesseldisease including proximal LAD which is 95% occluded, and midLADlesion also 95% occluded. RCA shows mid lesion of 70 to 80% which is heavily calcified distally to PDA branch.recommendation includes coronary bypass surgery with [place] to LAD.Patient was transferred to [facility] with consult for cardiothoracic surgery, IV heparin will be resumed. 07/19/2019 Patient lying in bed, comfortable not in distress, no chest pain or dyspnea. She remains on heparin drip and other cardiac medication Hemodynamically stable, labs are unremarkable CBC with normal WBC, sodium 136, creatinine 0.6, glucose 271-235, magnesium low at 1.4 Discussed the case with cardiology and cardiothoracic surgery, planned for cardiac surgery on 07/1907/24/2019 Patient at select unit, she is status post coronary bypass grafting 2 vessels on 07/19, today is postop day number 4, patient lying in bed comfortable no distress, no chest pain or dyspnea, no abdominal pain, she is tolerating diet well, nausea vomiting. Vitas looks stable. Glucose is controlled. Hemoglobin was 7.8, no leukocytosis, electrolytes normal, sodium 133, creatinine 0.7. Patient was followed by several consultants Objective - Vital Signs Vital signs: Vital Signs Temp 98.2 F 07/24/19 04:00 Pulse 72 07/24/19 04:00 Resp 18 07/24/19 04:00 BP 114/56 07/24/19 04:00 Pulse Ox 97 07/24/19 04:00 Intake & Output 07/23/19 07/23/19 07/24/19 06:59 18:59 06:59 Intake Total 900 Output Total 1200 400 Balance -300 -400 Weight 81.5 kg Intake: IV 600 Normal Saline Pressure 600 Bag Oral 300 Output: Urine 1200 400 Other: Voiding Method Bedside Commode Bedside Commode # Voids 1 # Bowel Movements 0 ABP, PAP, CO, CI - Last Documented Arterial Blood Pressure 121/57 Pulmonary Artery Pressure 48/25 Cardiac Output 4.3 Cardiac Index 2.4 - Exam GENERAL: The patient is alert and oriented x3, not in any acute distress. Well developed, well nourished. HEENT: Pupils are round and equally reacting to light. EOMI. No scleral icterus. No conjunctival pallor. Normocephalic, atraumatic. No pharyngeal erythema. No thyromegaly. CARDIOVASCULAR: S1 and S2 present. No murmurs, rubs, or gallops. PULMONARY: Chest is clear to auscultation, no wheezing or crackles. ABDOMEN: Soft, nontender, nondistended, normoactive bowel sounds. No palpable organomegaly. MUSCULOSKELETAL: No joint swelling or deformity. EXTREMITIES: No cyanosis, clubbing, or pedal edema. NEUROLOGICAL: Gross neurological examination did not reveal any focal deficits. SKIN: No rashes. No petechiae - Labs CBC & Chem 7: 07/23/19 05:42 07/23/19 05:42 Labs: Abnormal Lab Results - Last 24 Hours (Table) 07/23/19 07/23/19 07/23/19 Range/Units 12:01 17:04 20:25 POC Glucose (mg/dL) 188 H 184 H 249 H (75-99) mg/dL 07/24/19 Range/Units 06:05 POC Glucose (mg/dL) 153 H (75-99) mg/dL Assessment and Plan Assessment: non-STEMI, status post cardiac cath showing triple vessel coronary artery disease, patient status post 2 vessel coronary artery bypass surgery Hypomagnesemia, corrected Hypertension Hyperlipidemia Diabetes mellitus Hypothyroidism Gastroesophageal reflux disease Irritable bowel syndrome Anxiety Arthritis Plan: This is a pleasant 73 years old female who presents for severe triple vessel coronary artery disease and she's s/p coronary artery bypass surgery, continue with aspirin, statin, Plavix, insulin, metoprolol and heparin drip by home energy inspector and cardiothoracic surgery recommendation, follow-up recommendation by pulmonary/senior research manager team Labs and medication were reviewed.. Continue same treatment. Continue with symptomatic treatment. Resume home medication. Monitor lytes and vitals. DVT and GI prophylaxis. Further recommendations of the clinical course of the patient DVT prophylaxis: Aspirin and Plavix and heparin GI Prophylaxis: Protonix Prognosis is guarded
--- NOTE | 2019-07-24 07:12 | XR ---
EXAMINATION TYPE: XR chest 2V DATE OF EXAM: 07/24/2019 COMPARISON: 07/23/2019 HISTORY: Post CABG TECHNIQUE: Frontal and lateral views of the chest are obtained. FINDINGS: Cardiomediastinal silhouette is enlarged with post CABG change. Multifocal linear platelik e subsegmental atelectasis is seen throughout the lungs. No sizable pneumothorax. Trace pleural effus ions. No acute osseous pathology. IMPRESSION: Trace bilateral pleural effusions and multifocal scattered subsegmental atelectasis.
[2019-07-24 07:52] LABS: HCT 25.1 % (34.0-46.0); HGB 8.2 gm/dL (11.4-16.0); MCH 29.1 pg (25.0-35.0); MCHC 32.5 g/dL (31.0-37.0); MCV 89.3 fL (80.0-100.0); Platelet Count 170 k/uL (150-450); RBC 2.81 m/uL (3.80-5.40); RDW 14.9 % (11.5-15.5)
[2019-07-24 08:03] LABS: African American GFR (CKD) >90 (>60 ml/min/1.73 sqM); Anion Gap 6 mmol/L; Blood Urea Nitrogen 23 mg/dL (7-17); Calcium 8.6 mg/dL (8.4-10.2); Carbon Dioxide 24 mmol/L (22-30); Chloride 106 mmol/L (98-107); Glucose 143 mg/dL (74-99); Non-African American GFR(CKD) 83 (>60 ml/min/1.73 sqM); Potassium 4.8 mmol/L (3.5-5.1); Sodium 136 mmol/L (137-145)
--- NOTE | 2019-07-24 08:31 | P.CONS ---
History of Present Illness - Chief Complaint Cardiac debility - History of Present Illness I had the opportunity to see patient for inpatient rehab consultation with regard to cardiac debility. She was admitted to [facility] July 17 with chest pain. Seen in consultation by Dr. gagnon, Dr. Sheppard, Habib and cardiology. In July 19 underwent 2 vessel coronary bypass. Patient has chest x-ray which demonstrates trace effusion and subsegmental atelectasis. PT and OT prescribed. Previous functional history as elicited from patient: 73-year-old right-handed white female who is lives in one form with , melanie. Patient is retired and works part-time. is been doing the cooking for last 8 months. Patient independent laundry, driving, sitdown shower and gait without device. Dr. Sheppard is PMD. Family history both parents with [place]. Review of Systems Review of systems: ENT: Reports nasal whistle this a.m. Eyes: Denies discharge or photophobia. Cardiac: Mild sternal discomfort. Pulmonary: Denies cough or shortness of breath. Breast: Denies discharge or lumps. Gastrointestinal: Denies nausea, emesis, constipation, diarrhea. Genitourinary: Denies discharge or frequency. Musculoskeletal: Denies muscle or bone aches. Neurologic: Denies motor or sensory change. Endocrine: Denies shakes or sweats. Oncology: Denies cancers. Dermatologic: Denies rash, itching, pruritus. ALLERGY/immunology: Denies sneezes, rashes. Past Medical History Past Medical History: Coronary Artery Disease (CAD), Chest Pain / Angina, Diabetes Mellitus, GERD/Reflux, Hyperlipidemia, Hypertension, Osteoarthritis (OA), Thyroid Disorder Additional Past Medical History / Comment(s): diverticulitis, IBS, back fracture, herniated discs, bronchitis History of Any Multi-Drug Resistant Organisms: None Reported Past Surgical History: Cholecystectomy, Hysterectomy, Orthopedic Surgery, Tonsillectomy Additional Past Surgical History / Comment(s): right hip replacement, rotator cuff, left knee replacement, thyroidectomy, bladder suspension, EGD, colonoscopy Past Anesthesia/Blood Transfusion Reactions: No Reported Reaction Additional Past Anesthesia/Blood Transfusion Reaction / Comm: "slow coming out of it" Past Psychological History: Anxiety, Depression Smoking Status: Former smoker Past Alcohol Use History: None Reported Past Drug Use History: None Reported - Past Family History Father Family Medical History: Diabetes Mellitus, Myocardial Infarction ([place]) Additional Family Medical History / Comment(s): heart disease Mother Family Medical History: Myocardial Infarction ([place]) Additional Family Medical History / Comment(s): heart disease Medications and Allergies Home Medications Medication Instructions Recorded Confirmed Type Dicyclomine [Bentyl] 10 mg PO AC-TID 07/17/19 07/17/19 History Insulin NPH Human Isophane 13 units SQ AC-BID 07/17/19 07/17/19 History [NovoLIN N] Insulin NPH Human Isophane See Protocol SQ AC-BID 07/17/19 07/17/19 History [NovoLIN N] Levothyroxine Sodium [Synthroid] 100 mcg PO DAILY 07/17/19 07/17/19 History Lisinopril-Hctz 20-25 mg 1 tab PO DAILY 07/17/19 07/17/19 History [Zestoretic 20-25] Metoprolol Tartrate [Lopressor] 25 mg PO BID 07/17/19 07/17/19 History Omeprazole 20 mg PO DAILY 07/17/19 07/17/19 History Pravastatin Sodium [Pravachol] 80 mg PO DAILY 07/17/19 07/17/19 History Temazepam [Restoril] 15 mg PO HS 07/17/19 07/17/19 History amLODIPine [Norvasc] 5 mg PO DAILY 07/17/19 07/17/19 History Allergies Allergy/AdvReac Type Severity Reaction Status Date / Time No Known Allergies Allergy Verified 07/17/19 15:57 Physical Exam Vitals: Vital Signs Temp Pulse Pulse Resp BP BP Pulse Ox 07/24/19 04:00 98.2 F 72 18 114/56 97 07/24/19 00:00 98.2 F 79 16 123/62 97 07/23/19 20:43 78 07/23/19 20:31 76 07/23/19 20:00 97.6 F 76 19 125/57 96 07/23/19 15:44 98 F 75 20 122/71 97 07/23/19 11:59 76 07/23/19 11:51 72 07/23/19 11:14 98.1 F 72 16 128/58 96 07/23/19 08:52 80 07/23/19 08:38 72 95 Intake and Output 07/23/19 07/24/19 07/24/19 22:59 06:59 14:59 Intake Total 600 540 Output Total 250 150 Balance 350 390 Intake: IV 600 Normal Saline Pressure 600 Bag Oral 0 540 Output: Urine 250 150 Other: Voiding Method Bedside Commode Bedside Commode # Voids 1 Weight 81.5 kg Skin: Good color, texture, turgor. General: Overweight build and comfortable appearance. Head: Normocephalic, atraumatic. Eyes: Symmetric. Pupils equal round. Ears: Symmetric. Hearing within normal limits. Mouth: Clear. Neck: Supple. Carotid without bruit. Cardiac: Regular rate and rhythm. Sternal scar clean and dressed and well approximated, without discharge or redness. Lungs: Clear anteriorly and posteriorly. Abdomen: Soft active nontender. Extremities: Normal tone. Neurological: Mental status: Alert, cooperative, pleasant. Cranial nerves: Symmetric facial tone and trapezius. Motor: Normal strength and isolation all 4 limbs. Sensation: Intact throughout. DTRs: Symmetric and equal throughout. Mobility: Patient sitting in Julia chair at bedside. Results CBC & Chem 7: 07/24/19 06:58 07/24/19 06:58 Labs: Abnormal Lab Results - Last 24 Hours (Table) 07/23/19 07/23/19 07/23/19 Range/Units 12:01 17:04 20:25 RBC (3.80-5.40) m/uL Hgb (11.4-16.0) gm/dL Hct (34.0-46.0) % Sodium (137-145) mmol/L BUN (7-17) mg/dL Glucose (74-99) mg/dL POC Glucose (mg/dL) 188 H 184 H 249 H (75-99) mg/dL 07/24/19 07/24/19 07/24/19 Range/Units 06:05 06:58 06:58 RBC 2.81 L (3.80-5.40) m/uL Hgb 8.2 L (11.4-16.0) gm/dL Hct 25.1 L (34.0-46.0) % Sodium 136 L (137-145) mmol/L BUN 23 H (7-17) mg/dL Glucose 143 H (74-99) mg/dL POC Glucose (mg/dL) 153 H (75-99) mg/dL Assessment and Plan Plan: Impression: 1. Cardiac debility. 2. Chest pain status post CABG two-vessel. 3. Coronary disease with history of angina. 4. Hypertension. 5. Dyslipidemia. 6. Diabetes. 7. Osteoarthritis. 8. Reflux. 9. Hypothyroid. Comments and plan: At this time PT and OT are prescribed. We'll follow therapy benefits with yourself. I discussed possible inpatient rehab pending safety concerns and benefit and endurance from therapy.
[2019-07-24] MEDS: IPRATROPIUM-ALBUTEROL 3 ML NEB INHALATION SCH ×4 (08:42→19:55)
[2019-07-24] MEDS: INSULIN NPH 300 UNIT/3 ML VIAL SQ SCH ×2 (08:52→21:14)
[2019-07-24] MEDS: ASPIRIN 325 MG TAB PO SCH (08:52)
[2019-07-24] MEDS: ATORVASTATIN 40 MG TAB PO SCH (08:52)
[2019-07-24] MEDS: CLOPIDOGREL 75 MG TAB PO SCH (08:53)
[2019-07-24] MEDS: METOPROLOL TARTRATE 25 MG TAB PO SCH ×2 (08:53→20:53)
[2019-07-24] MEDS ORDERED: FUROSEMIDE 10 MG/ML 2 ML VIAL IV ONE (09:04)
--- NOTE | 2019-07-24 11:32 | P.PN ---
Subjective Progress Note Date: 07/24/19 This is a 73-year-old female who presented to [facility] with chest discomfort, she ruled in for non-Q-wave myocardial infarction. Underwent a cardiac catheterization which revealed triple vessel coronary artery disease including a proximal LAD 95% occluded, mid LAD 95%, RCA mid l esion of 70-80% which is heavily calcified distally to PDA branch. Patient was recommended to undergo coronary artery bypass surgery. Patient was transferred to [facility], cardiothoracic consultation was requested. Patient does have history of hypertension, diabetes, hyperlipidemia, hypothyroidism. The patient was seen and examined this morning, feels well, denies any chest discomfort or breathing problems. She's been up ambulating without any difficulty. Blood pressure 132/70 with a heart rate 60, 96% on room air. White blood cell count 6.4, hemoglobin 12.2, platelet count 188. Sodium 138, potassium 4.2, BUN 18, creatinine 0.6, magnesium 1.6. 07/19/2019 Patient was seen and examined this morning, ambulating without any difficulty. Denies any chest discomfort. Blood pressure 154/70 with a heart rate in the 70s, 95% on room air. 07/24/2019 Patient seen and examined this morning. In general states she wasn't feeling very well earlier this morning, somewhat congested, poor appetite. Repeat chest x-ray was performed this morning which showed trace bilateral pleural effusions and multifocal scattered subsegmental atelectasis. Objective - Vital Signs Vital signs: Vital Signs Temp 97.9 F 07/24/19 08:00 Pulse 80 07/24/19 08:55 Resp 18 07/24/19 08:00 BP 171/74 07/24/19 08:00 Pulse Ox 95 07/24/19 08:44 Intake & Output 07/23/19 07/24/19 07/24/19 18:59 06:59 18:59 Intake Total 900 540 180 Output Total 1200 400 Balance -300 140 180 Weight 81.5 kg Intake: IV 600 Normal Saline Pressure 600 Bag Oral 300 540 180 Output: Urine 1200 400 Other: Voiding Method Bedside Commode Bedside Commode # Voids 1 # Bowel Movements 0 ABP, PAP, CO, CI - Last Documented Arterial Blood Pressure 121/57 Pulmonary Artery Pressure 48/25 Cardiac Output 4.3 Cardiac Index 2.4 - Exam PHYSICAL EXAMINATION: GENERAL: 73-year-old female in no acute distress at the time of my examination HEENT: Head is atraumatic, normocephalic. Pupils equal, round. Sclera anicteric. Conjunctiva are clear. Mucous membranes of the mouth are moist. Neck is supple. There is no elevated jugular venous pressure. No carotid bruit is heard. HEART EXAMINATION: Heart S1, S2 normal. No murmur or gallop heard. CHEST EXAMINATION: Lungs are clear to auscultation and precussion. No chest wall tenderness is noted on palpation or with deep breathing. ABDOMEN: Soft, nontender. Bowel sounds are heard. No organomegaly noted. EXTREMITIES: 2+ peripheral pulses with no evidence of peripheral edema and no calf tenderness noted. NEUROLOGIC patient is awake, alert and oriented 3 . . - Labs CBC & Chem 7: 07/24/19 06:58 07/24/19 06:58 Labs: Abnormal Lab Results - Last 24 Hours (Table) 07/23/19 07/23/19 07/23/19 Range/Units 12:01 17:04 20:25 RBC (3.80-5.40) m/uL Hgb (11.4-16.0) gm/dL Hct (34.0-46.0) % Sodium (137-145) mmol/L BUN (7-17) mg/dL Glucose (74-99) mg/dL POC Glucose (mg/dL) 188 H 184 H 249 H (75-99) mg/dL 07/24/19 07/24/19 07/24/19 Range/Units 06:05 06:58 06:58 RBC 2.81 L (3.80-5.40) m/uL Hgb 8.2 L (11.4-16.0) gm/dL Hct 25.1 L (34.0-46.0) % Sodium 136 L (137-145) mmol/L BUN 23 H (7-17) mg/dL Glucose 143 H (74-99) mg/dL POC Glucose (mg/dL) 153 H (75-99) mg/dL Assessment and Plan Plan: Assessment and plan #1 non-Q-wave myocardial infarction, status post cardiac catheterization which revealed triple vessel coronary artery disease, status post coronary artery bypass grafting surgery #2 hypertension #3 diabetes #4 hyperlipidemia #5 hypothyroidism Plan From cardiology's perspective, we'll continue current medications. Patient may be transferred to rehab once cleared by cardiothoracic surgery. DNP note has been reviewed, I agree with a documented findings and plan of care. Patient was seen and examined.
[2019-07-24 11:54] LABS: Glucose,Whole Blood 163 mg/dL (75-99)
--- NOTE | 2019-07-24 12:36 | P.PN ---
Subjective Progress Note Date: 07/24/19 Principal diagnosis: Coronary artery disease, non-STEMI this admission. Previous medical history of hypertension, hyperlipidemia, insulin dependent diabetes mellitus with preopera tive hemoglobin A1c 8.7%, severe lung disease with preoperative FEV1 41% of predicted hypothyroidism, anxiety, IBS, diverticulosis, GERD, previous social tobacco use, and family history of coronary artery disease POD #4 coronary bypass grafting 2 vessels, left internal mammary artery to the left anterior descending artery, reverse saphenous vein graft to the posterior descending artery, endoscopic harvesting of the right greater saphenous vein, epi-aortic ultrasound, intraoperative transesophageal echocardiogram, ligation of the left atrial appendage using 35 mm AtriClip Postoperative acute blood loss anemia, expected outcome of surgery given hemodilution and cardiopulmonary bypass pump The patient is currently sitting up in a recliner in no acute distress on the cardiac stepdown unit eating breakfast. Does complain of postsurgical type pain which she states is controlled on current medication regimen. Denies shortness of breath. Currently in sinus rhythm, remains hemodynamically stable. All lines and tubes discontinued. No new concerns. Objective - Vital Signs Vital signs: Vital Signs Temp 98.2 F 07/24/19 11:56 Pulse 74 07/24/19 12:04 Resp 18 07/24/19 11:56 BP 134/65 07/24/19 11:56 Pulse Ox 96 07/24/19 11:56 Intake & Output 07/23/19 07/24/19 07/24/19 18:59 06:59 18:59 Intake Total 900 540 180 Output Total 1200 400 Balance -300 140 180 Weight 81.5 kg Intake: IV 600 Normal Saline Pressure 600 Bag Oral 300 540 180 Output: Urine 1200 400 Other: Voiding Method Bedside Commode Bedside Commode # Voids 1 # Bowel Movements 0 ABP, PAP, CO, CI - Last Documented Arterial Blood Pressure 121/57 Pulmonary Artery Pressure 48/25 Cardiac Output 4.3 Cardiac Index 2.4 - Constitutional General appearance: Present: cooperative, no acute distress, obese - Respiratory Details: Lungs sounds diminished bilaterally. Respirations even, nonlabored. Currently on room air with oxygen saturation 97%. Able to achieve 750 mL on her incentive spirometry. Strong cough. - Cardiovascular Details: S1, S2 present. Regular rate and rhythm, sinus rhythm on telemetry. Sternum stable. Palpable peripheral pulses bilaterally. Trace bilateral lower extremity edema present. No calf pain or tenderness noted. Heart hugger in place with patient demonstrating appropriate use. Antiembolism stockings, SCDs present. - Gastrointestinal Gastrointestinal Comment(s): Abdomen soft, nontender, nondistended. Active bowel sounds present 4 quadrants. Tolerating diet. Positive bowel movement - Genitourinary Genitourinary Comment(s): Continues to void clear, yellow urine - Integumentary Integumentary Comment(s): Skin is warm and dry with evidence of good perfusion. Anterior chest incision well approximated. Right lower extremity EVH site well approximated - Neurologic Neurologic: Present: CNII-XII intact - Musculoskeletal Musculoskeletal: Present: gait normal, strength equal bilaterally - Psychiatric Psychiatric: Present: A&O x's 3, appropriate affect, intact judgment & insight - Allied health notes Allied health notes reviewed: nursing - Labs CBC & Chem 7: 07/24/19 06:58 07/24/19 06:58 Labs: Abnormal Lab Results - Last 24 Hours (Table) 07/23/19 07/23/19 07/24/19 Range/Units 17:04 20:25 06:05 RBC (3.80-5.40) m/uL Hgb (11.4-16.0) gm/dL Hct (34.0-46.0) % Sodium (137-145) mmol/L BUN (7-17) mg/dL Glucose (74-99) mg/dL POC Glucose (mg/dL) 184 H 249 H 153 H (75-99) mg/dL 07/24/19 07/24/19 07/24/19 Range/Units 06:58 06:58 11:49 RBC 2.81 L (3.80-5.40) m/uL Hgb 8.2 L (11.4-16.0) gm/dL Hct 25.1 L (34.0-46.0) % Sodium 136 L (137-145) mmol/L BUN 23 H (7-17) mg/dL Glucose 143 H (74-99) mg/dL POC Glucose (mg/dL) 163 H (75-99) mg/dL - Imaging and Cardiology Chest x-ray: report reviewed, image reviewed Assessment and Plan Assessment: 1. Severe coronary artery disease, non-STEMI this admission, status post 2 vessel CABG 2. Hypertension 3. Hyperlipidemia 4. Hypothyroidism 5. Insulin dependent diabetes mellitus with preoperative hemoglobin A1c 8.7% 6. Severe lung disease with preoperative FEV1 41% protected 7. Anxiety 8. IBS, diverticulosis 9. Anxiety/depression 10. GERD 11. Previous social smoker 12. Family history of heart disease 13. Postoperative acute blood loss anemia Plan: 1. Continue to maximize medical therapy with aspirin, Plavix, statin, beta bloc ker therapy. Will increase beta gonzález therapy as tolerated. 2. Encourage incentive spirometry use 10 times every hour while awake 3. Increased activity as tolerated. PT/OT/cardiac rehab following 4. Will monitor daily labs and x-rays. Electrolyte replacement per protocol. No transfusion. We'll give IV Lasix today 5. Pain control current medication regimen. 6. Insulin management per primary care service 7. GI/DVT prophylaxis 8. Discharge planning in progress. Anticipate discharge to home with home care versus IPR in the next 24-48 hours. 9. More recommendations to follow Time with Patient: Greater than 30
--- NOTE | 2019-07-24 12:57 | P.PN ---
Subjective Progress Note Date: 07/24/19 On today's evaluation of 07/24/2019, the patient is postop day #4. She is doing well for this morning. She is on room air oxygen. Sternum stable clean and intact. Chest x-ray shows some limited atelectatic changes in lung bases. No other significant abnormalities are noted. No pneumothorax. Chest tubes are removed. She is using incentive spirometer. Hemoglobin is above 8. She is tolerating her diet situated at breakfast this morning. No nausea. No vomiting. No abdominal pain. She was taken off the insulin drip and her blood sugars are being monitored. She is ambulating in the hallway with assistance. The plan is to possibly take this patient for rehabilitation prior to her going home. Objective - Vital Signs Vital signs: Vital Signs Temp 98.2 F 07/24/19 11:56 Pulse 74 07/24/19 12:04 Resp 18 07/24/19 11:56 BP 134/65 07/24/19 11:56 Pulse Ox 96 07/24/19 11:56 Intake & Output 07/23/19 07/24/19 07/24/19 18:59 06:59 18:59 Intake Total 900 540 180 Output Total 1200 400 Balance -300 140 180 Weight 81.5 kg Intake: IV 600 Normal Saline Pressure 600 Bag Oral 300 540 180 Output: Urine 1200 400 Other: Voiding Method Bedside Commode Bedside Commode # Voids 1 # Bowel Movements 0 ABP, PAP, CO, CI - Last Documented Arterial Blood Pressure 121/57 Pulmonary Artery Pressure 48/25 Cardiac Output 4.3 Cardiac Index 2.4 - Exam Gen. appearance the patient is awake and alert on room air oxygen Head exam was generally normal. There was no scleral icterus or corneal arcus. Mucous membranes were moist. Neck was supple and without jugular venous distension, thyromegaly, or carotid bruits. Carotids were easily palpable bilaterally. There was no adenopathy. The upper lip is slightly swollen compared to the lower lip. The lip swelling has improved and the patient has a small hematoma in the right neck area at the site of the [place] catheter insertion Lungs sounds are diminished in lung bases bilaterally. All of the chest is a been removed Cardiac exam revealed the PMI to be normally situated and sized. The rhythm was regular and no extrasystoles were noted during several minutes of auscultation. The first and second heart sounds were normal and physiologic splitting of the second heart sound was noted. There were no murmurs, rubs, clicks, or gallops. There is a cardiac rub heard over the precordium. Sternum stable clean and intact. The chest tubes are removed Abdominal exam revealed normal bowel sounds. The abdomen was soft, non-tender, and without masses, organomegaly, or appreciable enlargement of the abdominal aorta. Examination of the extremities revealed easily palpable radial, femoral and pedal pulses. There was no cyanosis, clubbing or edema. Examination of the skin revealed no evidence of significant rashes, suspicious a ppearing nevi or other concerning lesions. Neurologically she is awake and alert and there is no focal neurological deficit - Labs CBC & Chem 7: 07/24/19 06:58 07/24/19 06:58 Labs: Abnormal Lab Results - Last 24 Hours (Table) 07/23/19 07/23/19 07/24/19 Range/Units 17:04 20:25 06:05 RBC (3.80-5.40) m/uL Hgb (11.4-16.0) gm/dL Hct (34.0-46.0) % Sodium (137-145) mmol/L BUN (7-17) mg/dL Glucose (74-99) mg/dL POC Glucose (mg/dL) 184 H 249 H 153 H (75-99) mg/dL 07/24/19 07/24/19 07/24/19 Range/Units 06:58 06:58 11:49 RBC 2.81 L (3.80-5.40) m/uL Hgb 8.2 L (11.4-16.0) gm/dL Hct 25.1 L (34.0-46.0) % Sodium 136 L (137-145) mmol/L BUN 23 H (7-17) mg/dL Glucose 143 H (74-99) mg/dL POC Glucose (mg/dL) 163 H (75-99) mg/dL Assessment and Plan Plan: 1 Multivessel coronary artery disease post bypass surgery. The patient was having angina on outpatient basis. She was quite symptomatic. The patient underwent cardiac catheterization and subsequently she was brought in to undergo coronary artery bypass surgery. She is currently postop day #4 . C x-ray shows typical postsurgical changes 2. Acute non-ST elevated myocardial infarction 3. COPD, FEV1 of 41% predicted according to the bedside spirometry, the patient is currently using incentive spirometer 4. Hypertension, current BP is under better control 5. Hypothyroidism 6. Hyperlipidemia 7. Insulin-dependent diabetes mellitus, the patient is currently off the insulin drip and she is on NPH insulin 8. Anxiety 9. IBS, diverticulosis 10. Former smoker SHOSHANA Increase mobility Ambulation Use of incentive spirometer Medications are all appropriate The patient is on room air oxygen Chest x-ray was reviewed Consider rehabilitation with the next 24 hours.
[2019-07-24 17:11] LABS: Glucose,Whole Blood 241 mg/dL (75-99)
[2019-07-24] MEDS: SENNOSIDES-DOCUSATE SODIUM 1 EACH TAB PO SCH (20:53)
[2019-07-24 21:10] LABS: Glucose,Whole Blood 258 mg/dL (75-99)
[2019-07-25] MEDS: ACETAMINOPHEN TAB 500 MG TAB PO PRN (04:14)
[2019-07-25] MEDS: HEPARIN SODIUM,PORCINE 5,000 UNIT/ML 1 ML VIAL SQ SCH ×2 (06:53→12:24)
[2019-07-25] MEDS: KETOROLAC 30 MG/ML 1 ML VIAL IVP SCH ×2 (06:54→12:27)
[2019-07-25 06:55] LABS: Glucose,Whole Blood 206 mg/dL (75-99)
[2019-07-25] MEDS: LEVOTHYROXINE 100 MCG TAB PO SCH (06:55)
[2019-07-25] MEDS: PANTOPRAZOLE 40 MG TABLET PO SCH (06:55)
[2019-07-25] MEDS: INSULIN ASPART (NovoLOG) 100 UNIT/ML VIAL SQ SCH ×2 (06:55→12:28)
[2019-07-25 07:12] LABS: HCT 23.5 % (34.0-46.0); HGB 7.8 gm/dL (11.4-16.0); MCH 29.5 pg (25.0-35.0); MCV 89.2 fL (80.0-100.0); Mean Platelet Volume 8.2; Platelet Count 223 k/uL (150-450); RBC 2.63 m/uL (3.80-5.40); RDW 15.2 % (11.5-15.5); WBC 4.5 k/uL (3.8-10.6)
--- NOTE | 2019-07-25 07:20 | XR ---
EXAMINATION TYPE: XR chest 2V DATE OF EXAM: 07/25/2019 COMPARISON: Chest x-ray from yesterday and older studies. HISTORY: Post open cardiac surgery. TECHNIQUE: Frontal and lateral views of the chest are obtained. FINDINGS: Overlying EKG leads redemonstrated. Additional overlying left-sided devices makes evaluati on suboptimal as lateral left suprahilar linear opacity extends outside lung field presumed portion e xternal to patient. Persistent cardiomegaly with cardiac closure device posterior superior aspect red emonstrated. Overlying sternal wires and mediastinal clips again seen. Persistent lateral left midlun g linear opacity or interstitial edema. Improved aeration left lung base noted. Persistent tiny bilat eral pleural effusions on lateral view . The osseous structures remain demineralized. Cholecystectomy clips are noted. IMPRESSION: Tiny bilateral pleural effusions spelled slightly improved with mild left lung interstit ial edema and cardiomegaly are all redemonstrated. Also improvement in left basilar atelectasis and/o r infiltrate noted.
[2019-07-25 07:23] LABS: African American GFR (CKD) >90 (>60 ml/min/1.73 sqM); Anion Gap 8 mmol/L; Blood Urea Nitrogen 24 mg/dL (7-17); Calcium 8.8 mg/dL (8.4-10.2); Carbon Dioxide 23 mmol/L (22-30); Chloride 105 mmol/L (98-107); Glucose 167 mg/dL (74-99); Non-African American GFR(CKD) 85 (>60 ml/min/1.73 sqM); Potassium 4.4 mmol/L (3.5-5.1); Sodium 136 mmol/L (137-145)
--- NOTE | 2019-07-25 07:27 | P.PN ---
Subjective Pema Portillo 73 y.o.femalewho presented to [facility] on 07/14 with complaint of chest tightness and pain, 7 out of 10 in severity which is been ongoing for the last 5 to 6 weeks. With tightness to her left arm. Serial cardiac enzymes elevated, trending up to 0.353. EKG showing sinus rhythm no ST depression, noQ wave. Chest x-ray no acute process. proBNP 2354. Magnesium critically low at 0.9, replacement given. CBC unremarkable. Patient was started on aspirin,placed on IV heparin, Nitropaste was applied. Vital signs stable. Patient underwent cardiac catheterization on 07/17/2019which showed significant 3 vesseldisease including proximal LAD which is 95% occluded, and midLADlesion also 95% occluded. RCA shows mid lesion of 70 to 80% which is heavily calcified distally to PDA branch.recommendation includes coronary bypass surgery with [place] to LAD.Patient was transferred to [facility] with consult for cardiothoracic surgery, IV heparin will be resumed. 07/19/2019 Patient lying in bed, comfortable not in distress, no chest pain or dyspnea. She remains on heparin drip and other cardiac medication Hemodynamically stable, labs are unremarkable CBC with normal WBC, sodium 136, creatinine 0.6, glucose 271-235, magnesium low at 1.4 Discussed the case with cardiology and cardiothoracic surgery, planned for cardiac surgery on 07/1907/24/2019 [facility], she is status post coronary bypass grafting 2 vessels on 07/19, today is postop day number 4, patient lying in bed comfortable no distress, no chest pain or dyspnea, no abdominal pain, she is tolerating diet well, nausea vomiting. Vitas looks stable. Glucose is controlled. Hemoglobin was 7.8, no leukocytosis, electrolytes normal, sodium 133, creatinine 0.7. Patient was followed by several consultants 07/25/2019 Patient is doing well, she is fully awake and oriented, no chest pain or d yspnea. She is complaining of from not getting good sleep at night but she admits for history of insomnia. Mild dry cough which is occasional. She is hemodynamically stable. WBC 4.5K, hemoglobin 7.8 which is stable, platelets are within normal limits. Patient's currently on aspirin and Plavix, on he willing 10 units twice a day Objective - Vital Signs Vital signs: Vital Signs Temp 98.1 F 07/25/19 04:00 Pulse 71 07/25/19 04:00 Resp 18 07/25/19 04:00 BP 137/77 07/25/19 04:00 Pulse Ox 97 07/25/19 04:00 Intake & Output 07/24/19 07/25/19 07/25/19 18:59 06:59 18:59 Intake Total 360 840 Balance 360 840 Weight 80.7 kg Intake: Oral 360 840 Other: Voiding Method Bedside Commode # Voids 1 1 # Bowel Movements 0 ABP, PAP, CO, CI - Last Documented Arterial Blood Pressure 121/57 Pulmonary Artery Pressure 48/25 Cardiac Output 4.3 Cardiac Index 2.4 - Exam GENERAL: The patient is alert and oriented x3, not in any acute distress. Well developed, well nourished. HEENT: Pupils are round and equally reacting to light. EOMI. No scleral icterus. No conjunctival pallor. Normocephalic, atraumatic. No pharyngeal erythema. No thyromegaly. CARDIOVASCULAR: S1 and S2 present. No murmurs, rubs, or gallops. PULMONARY: Chest is clear to auscultation, no wheezing or crackles. ABDOMEN: Soft, nontender, nondistended, normoactive bowel sounds. No palpable organomegaly. MUSCULOSKELETAL: No joint swelling or deformity. EXTREMITIES: No cyanosis, clubbing, or pedal edema. NEUROLOGICAL: Gross neurological examination did not reveal any focal deficits. SKIN: No rashes. No petechiae - Labs CBC & Chem 7: 07/25/19 06:37 07/25/19 06:37 Labs: Abnormal Lab Results - Last 24 Hours (Table) 07/24/19 07/24/19 07/24/19 Range/Units 06:58 06:58 11:49 RBC 2.81 L (3.80-5.40) m/uL Hgb 8.2 L (11.4-16.0) gm/dL Hct 25.1 L (34.0-46.0) % Sodium 136 L (137-145) mmol/L BUN 23 H (7-17) mg/dL Glucose 143 H (74-99) mg/dL POC Glucose (mg/dL) 163 H (75-99) mg/dL 07/24/19 07/24/19 07/25/19 Range/Units 17:00 21:08 06:37 RBC 2.63 L (3.80-5.40) m/uL Hgb 7.8 L (11.4-16.0) gm/dL Hct 23.5 L (34.0-46.0) % Sodium (137-145) mmol/L BUN (7-17) mg/dL Glucose (74-99) mg/dL POC Glucose (mg/dL) 241 H 258 H (75-99) mg/dL 07/25/19 07/25/19 Range/Units 06:37 06:54 RBC (3.80-5.40) m/uL Hgb (11.4-16.0) gm/dL Hct (34.0-46.0) % Sodium 136 L (137-145) mmol/L BUN 24 H (7-17) mg/dL Glucose 167 H (74-99) mg/dL POC Glucose (mg/dL) 206 H (75-99) mg/dL Assessment and Plan Assessment: non-STEMI, status post cardiac cath showing triple vessel coronary artery disease, patient status post 2 vessel coronary artery bypass surgery Hypomagnesemia, corrected Hypertension Hyperlipidemia Diabetes mellitus Hypothyroidism Gastroesophageal reflux disease Irritable bowel syndrome Anxiety Arthritis Plan: This is a pleasant 73 years old female who presents for severe triple vessel coronary artery disease and she's s/p coronary artery bypass surgery, continue with aspirin, statin, Plavix, insulin, metoprolol and heparin drip by cardi ologist and cardiothoracic surgery recommendation, follow-up recommendation by pulmonary/manager sql team. Labs and medication were reviewed.. Continue same treatment. Continue with symptomatic treatment. Resume home medication. Monitor lytes and vitals. DVT and GI prophylaxis. Further recommendations of the clinical course of the patient DVT prophylaxis: Aspirin and Plavix and heparin GI Prophylaxis: Protonix Prognosis is guarded
[2019-07-25] MEDS: IPRATROPIUM-ALBUTEROL 3 ML NEB INHALATION SCH ×2 (08:28→12:44)
[2019-07-25] MEDS: METOPROLOL TARTRATE 25 MG TAB PO SCH (08:59)
[2019-07-25] MEDS: ASPIRIN 325 MG TAB PO SCH (08:59)
[2019-07-25] MEDS: ATORVASTATIN 40 MG TAB PO SCH (08:59)
[2019-07-25] MEDS: CLOPIDOGREL 75 MG TAB PO SCH (08:59)
[2019-07-25] MEDS: INSULIN NPH 300 UNIT/3 ML VIAL SQ SCH (08:59)
[2019-07-25 09:58] VITALS: RESP 16
[2019-07-25 11:07] VITALS: BP 120/55; PULSE 68; TEMP 98.1
[2019-07-25] MEDS ORDERED: guaiFENesin 600 MG TABLET.ER PO PRN (11:15)
--- NOTE | 2019-07-25 11:22 | P.PN ---
Subjective Progress Note Date: 07/25/19 Principal diagnosis: Coronary artery disease, non-STEMI this admission. Previous medical history of hypertension, hyperlipidemia, insulin dependent diabetes mellitus with preopera tive hemoglobin A1c 8.7%, severe lung disease with preoperative FEV1 41% of predicted hypothyroidism, anxiety, IBS, diverticulosis, GERD, previous social tobacco use, and family history of coronary artery disease POD #5 coronary bypass grafting 2 vessels, left internal mammary artery to the left anterior descending artery, reverse saphenous vein graft to the posterior descending artery, endoscopic harvesting of the right greater saphenous vein, epi-aortic ultrasound, intraoperative transesophageal echocardiogram, ligation of the left atrial appendage using 35 mm AtriClip Postoperative acute blood loss anemia, expected outcome of surgery given hemodilution and cardiopulmonary bypass pump The patient is currently sitting up in a recliner in no acute distress on the cardiac stepdown unit. Does complain of postsurgical type pain which she states is controlled on current medication regimen. Denies shortness of breath, complains of dry hacking cough. Currently in sinus rhythm, remains hemodynamically stable. Does state she feels safe to go home today with home care. No new concerns. Objective - Vital Signs Vital signs: Vital Signs Temp 98.1 F 07/25/19 11:07 Pulse 68 07/25/19 11:07 Resp 16 07/25/19 11:07 BP 120/55 07/25/19 11:07 Pulse Ox 94 L 07/25/19 11:07 Intake & Output 07/24/19 07/25/19 07/25/19 18:59 06:59 18:59 Intake Total 360 840 120 Output Total 300 Balance 360 540 120 Weight 80.7 kg Intake: Oral 360 840 120 Output: Urine 300 Other: Voiding Method Bedside Commode Bedside Commode # Voids 1 1 # Bowel Movements 0 ABP, PAP, CO, CI - Last Documented Arterial Blood Pressure 121/57 Pulmonary Artery Pressure 48/25 Cardiac Output 4.3 Cardiac Index 2.4 - Constitutional General appearance: Present: cooperative, no acute distress, obese - Respiratory Details: Lungs sounds diminished bilaterally. Respirations even, nonlabored. Currently on room air with oxygen saturation 94%. Able to achieve 750 mL on her incentive spirometry. Strong cough. - Cardiovascular Details: S1, S2 present. Regular rate and rhythm, sinus rhythm on telemetry. Sternum stable. Palpable peripheral pulses bilaterally. Trace bilateral lower extremity edema present. No calf pain or tenderness noted. Heart hugger in place with patient demonstrating appropriate use. Antiembolism stockings, SCDs present. - Gastrointestinal Gastrointestinal Comment(s): Abdomen soft, nontender, nondistended. Active bowel sounds present 4 quadrants. Tolerating diet. Positive bowel movement - Genitourinary Genitourinary Comment(s): Continues to void clear, yellow urine - Integumentary Integumentary Comment(s): Skin is warm and dry with evidence of good perfusion. Anterior chest incision well approximated. Right lower extremity EVH site well approximated - Neurologic Neurologic: Present: CNII-XII intact - Musculoskeletal Musculoskeletal: Present: gait normal, strength equal bilaterally - Psychiatric Psychiatric: Present: A&O x's 3, appropriate affect, intact judgment & insight - Allied health notes Allied health notes reviewed: nursing - Labs CBC & Chem 7: 07/25/19 06:37 07/25/19 06:37 Labs: Abnormal Lab Results - Last 24 Hours (Table) 07/24/19 07/24/19 07/24/19 Range/Units 11:49 17:00 21:08 RBC (3.80-5.40) m/uL Hgb (11.4-16.0) gm/dL Hct (34.0-46.0) % Sodium (137-145) mmol/L BUN (7-17) mg/dL Glucose (74-99) mg/dL POC Glucose (mg/dL) 163 H 241 H 258 H (75-99) mg/dL 07/25/19 07/25/19 07/25/19 Range/Units 06:37 06:37 06:54 RBC 2.63 L (3.80-5.40) m/uL Hgb 7.8 L (11.4-16.0) gm/dL Hct 23.5 L (34.0-46.0) % Sodium 136 L (137-145) mmol/L BUN 24 H (7-17) mg/dL Glucose 167 H (74-99) mg/dL POC Glucose (mg/dL) 206 H (75-99) mg/dL - Imaging and Cardiology Chest x-ray: report reviewed, image reviewed Assessment and Plan Assessment: 1. Severe coronary artery disease, non-STEMI this admission, status post 2 vessel CABG 2. Hypertension 3. Hyperlipidemia 4. Hypothyroidism 5. Insulin dependent diabetes mellitus with preoperative hemoglobin A1c 8.7% 6. Severe lung disease with preoperative FEV1 41% protected 7. Anxiety 8. IBS, diverticulosis 9. Anxiety/depression 10. GERD 11. Previous social smoker 12. Family history of heart disease 13. Postoperative acute blood loss anemia Plan: 1. Continue to maximize medical therapy with aspirin, Plavix, statin, beta gonzález therapy. 2. Encourage incentive spirometry use 10 times every hour while awake 3. Increased activity as tolerated. PT/OT/cardiac rehab following 4. Will monitor daily labs and x-rays. Electrolyte replacement per protocol. No transfusion. 5. Pain control current medication regimen. 6. Insulin management per primary care service 7. GI/DVT prophylaxis 8. Discharge planning in progress. Anticipate discharge to home with home care today. Follow-up appointments made. Verbal discharge instructions reviewed with the patient. Our contact information given to the patient for any questions or concerns 9. More recommendations to follow Time with Patient: Greater than 30
[2019-07-25 11:56] LABS: Glucose,Whole Blood 200 mg/dL (75-99)
--- NOTE | 2019-07-25 11:57 | P.DS ---
Providers Date of admission: 07/17/19 15:27 Expected date of discharge: 07/25/19 Attending physician: Arron Blanchard Consults: 07/17/19 16:17 Consult Physician Routine Consulting Provider: Florinda Ruiz Consult Reason/Comments: consult for bypass surgery Do you want consulting provider notified?: Yes Placement Type Exists?: Yes 07/17/19 16:27 Consult Physician Urgent Consulting Provider: Florinda Ruiz Consult Reason/Comments: evaluate for coronary artery bypass graft Do you want consulting provider notified?: Yes 07/17/19 16:33 Consult Physician Urgent Consulting Provider: Sue Al Consult Reason/Comments: abn cardiac cath Do you want consulting provider notified?: Yes 07/17/19 16:51 Consult Physician Routine Consulting Provider: Tre Monae Consult Reason/Comments: preop cabg, has seen brynn Do you want consulting provider notified?: Yes, Notify in am 07/17/19 19:56 Consult Physician Routine Consulting Provider: Andria Sheppard Consult Reason/Comments: known to your service Do you want consulting provider notified?: Yes 07/19/19 10:35 Consult to Anesthesia Routine Consulting Provider: Anesthesia,Services Consult Reason/Comments: Cardiac Surgery Pre-Op 07/20/19 13:13 Consult Physician Routine Consulting Provider: Toni Mejia Consult Reason/Comments: med mgt Do you want consulting provider notified?: Already Contacted 07/24/19 08:02 Consult Physician Routine Consulting Provider: Marcos Salgado Consult Reason/Comments: inpatient rehab Do you want consulting provider notified?: Yes Primary care physician: Stated None Hospital Course: FINAL DIAGNOSIS: 1. Coronary artery disease, non-STEMI this admission 2. Hypertension 3. Hyperlipidemia 4. Insulin-dependent diabetes mellitus preoperative hemoglobin A1c 8.7% 5. Severe lung disease with preoperative FEV1 41% of predicted 6. Hypothyroidism 7. Anxiety 8. IBS, diverticulosis, GERD 9. Previous social tobacco use 10. Family history of coronary artery disease 11. Postoperative acute blood loss anemia PRINCIPAL PROCEDURE: 1. Left heart catheterization 2. Coronary bypass grafting 2 vessels, left internal mammary artery to the l eft anterior descending artery, reverse saphenous vein graft to the posterior descending artery 3. Endoscopic harvesting of the right greater saphenous vein 4. Epi-aortic ultrasound 5. Intraoperative transesophageal echocardiogram 6. Ligation of the left atrial appendage using a 35 mm AtriClip HISTORY OF PRESENT ILLNESS: This is a 73-year-old female patient who follows on an outpatient basis with Dr. Sheppard as her primary care physician and Dr. BALDO Truong as her community relations representative. Apparently she had intermittent chest pain for approximately 6 weeks with radiation to her arms and jaw. She presented to [facility] for treatment and evaluation. EKG demonstrated sinus rhythm with T-wave inversions and serial troponins were positive, she was ruled in for non-STEMI. She was initiated on IV heparin and taken to the [employer] which demonstrated severe coronary artery disease with proximal LAD 95% occlusion, mid LAD also 95% occlusion, and mid RCA lesion 70-80%. Due to these findings the patient was transferred to [facility] with consultation placed to Dr. Ruiz from cardiothoracic surgery. She was recommended to undergo coronary artery bypass surgery. The usual perioperative course was discussed in detail with the patient and her family, all risks and benefits were explained, all questions were answered, and consent was obtained to proceed with surgery. The patient was kept inpatient and scheduled for surgery at the earliest possible date with Dr. Blanchard. HOSPITAL COURSE: The patient was taken to the preoperative area on 07/20/2019, prepared in the usual fashion, and subsequently taken to the operating room where Dr. Blanchard performed 2 vessel CABG. Upon completion of surgery the patient was transferred to the cardiovascular intensive care unit where she was recovered, monitored hemodynamically, and where she progressed to cardiac rehabilitation phase 1. She was extubated, all lines, tubes, and drips were discontinued when appropriate, and she was transferred to 3 cardiac stepdown unit for further monitoring and rehabilitation. Her oxygen was titrated down, she continued to work with physical and occupational therapy, she was tolerating oral diet, her pain was controlled, and she was ready to be discharged to home with [facility] on postoperative day #5. She received written and verbal instruction regarding her medications, activity restrictions, signs and symptoms requiring physician notification, and follow-up appointments. COMPLICATIONS: The patient experienced postoperative blood loss anemia requiring no intervention. Patient Condition at Discharge: Stable Plan - Discharge Summary Discharge Rx Participant: No New Discharge Prescriptions: New Aspirin 325 mg PO DAILY #30 tab Furosemide [Lasix] 20 mg PO DAILY #5 tab Atorvastatin [Lipitor] 40 mg PO DAILY #30 tab Melatonin 6 mg PO HS PRN tablet PRN Reason: Insomnia Clopidogrel [Plavix] 75 mg PO DAILY #30 tab Pantoprazole [Protonix] 40 mg PO AC-BRKFST #[address] tablet[address] Fernandez-Docusate Sodium [Senokot-S] 2 each PO HS PRN tab PRN Reason: Constipation Acetaminophen Tab [Tylenol] 1,000 mg PO Q6HR PRN tab PRN Reason: Fever And/ Or Pain guaiFENesin [Mucinex] 600 mg PO BID PRN #14 tab.er.12h PRN Reason: Cough Continue Insulin NPH Human Isophane [NovoLIN N] See Protocol SQ AC-BID Levothyroxine Sodium [Synthroid] 100 mcg PO DAILY Insulin NPH Human Isophane [NovoLIN N] 13 units SQ AC-BID Dicyclomine [Bentyl] 10 mg PO AC-TID Metoprolol Tartrate [Lopressor] 25 mg PO BID #60 tab Discontinued Temazepam [Restoril] 15 mg PO HS Omeprazole 20 mg PO DAILY amLODIPine [Norvasc] 5 mg PO DAILY Pravastatin Sodium [Pravachol] 80 mg PO DAILY Lisinopril-Hctz 20-25 mg [Zestoretic 20-25] 1 tab PO DAILY Discharge Medication List Dicyclomine [Bentyl] 10 mg PO AC-TID 07/17/19 [History] Insulin NPH Human Isophane [NovoLIN N] 13 units SQ AC-BID 07/17/19 [History] Insulin NPH Human Isophane [NovoLIN N] See Protocol SQ AC-BID 07/17/19 [History] Levothyroxine Sodium [Synthroid] 100 mcg PO DAILY 07/17/19 [History] Acetaminophen Tab [Tylenol] 1,000 mg PO Q6HR PRN tab 07/25/19 [Rx] Aspirin 325 mg PO DAILY #30 tab 07/25/19 [Rx] Atorvastatin [Lipitor] 40 mg PO DAILY #30 tab 07/25/19 [Rx] Clopidogrel [Plavix] 75 mg PO DAILY #30 tab 07/25/19 [Rx] Furosemide [Lasix] 20 mg PO DAILY #5 tab 07/25/19 [Rx] Melatonin 6 mg PO HS PRN tablet 07/25/19 [Rx] Metoprolol Tartrate [Lopressor] 25 mg PO BID #60 tab 07/25/19 [Rx] Pantoprazole [Protonix] 40 mg PO AC-BRKFST #30 tablet. 07/25/19 [Rx] Sennosides-Docusate Sodium [Senokot-S] 2 each PO HS PRN tab 07/25/19 [Rx] guaiFENesin [Mucinex] 600 mg PO BID PRN #14 tab.er.12h 07/25/19 [Rx] Follow up Appointment(s)/Referral(s): Teetee Leonard NPC [Nurse Practitioner] - 07/31/19 10:45 am (Wednesday) [facility], [NON-STAFF] - 1-2 Days Kayden Truong MD [STAFF PHYSICIAN] - 08/02/19 3:15 pm (Wednesday) [facility] [NON-STAFF] - 1 Week (After discharge, you will follow- up with your community relations representative. Once you have obtained a prescription for cardiac rehab, please call [phone] to set up an evaluation.) Arron Blanchard MD [STAFF PHYSICIAN] - 08/24/19 9:15 am () Andria Sheppard MD [STAFF PHYSICIAN] - 08/22/19 9:30 am (Wednesday) Ambulatory/Diagnostic Orders: Complete Blood Count w/diff [LAB.AMB] Time Frame: 3 Days, Location: None Selected Comprehensive Metabolic Panel [LAB.AMB] Time Frame: 3 Days, Location: None Selected Patient Instructions/Handouts: How to Use an Incentive Spirometer (DC), Sternal Precautions (GEN), CABG (Coronary Artery Bypass Graft) (DC) Activity/Diet/Wound Care/Special Instructions: DISCHARGE INSTRUCTIONS: 1. No driving for 4 weeks, or until physician gives their ok. 2. The patient should sleep in their own bed, no medical bed needed. 3. Stairs are not an issue. If the bedroom is upstairs, it is advised that the patient go up at night and down in the morning for the first week. Go slowly, using handrail and take 1 step at a time. 4. MORENO hose are to be worn for 30 days or until physician discontinues. 5. Heart hugger is to be worn 100% of the time until physician discontinues.(except when showering) 6. No lifting, pushing, or pulling more than 10 pounds for 12 weeks. The physician will advise of any restriction changes. 7. The patient is expected to continue the prescribed walking program. 8. Continue pain control per as needed orders. 9. Continue with incentive spirometry and splinting/heart hugger until otherwise directed by the physician. 10. Must shower daily using liquid antibacterial soap and a separate white washcloth for each individual incision. 11. Routine sternal incision care. No powders, lotions, ointments on incisions. No dressings are necessary on incisions unless they are draining. Dermabond tape is to remain on sternal incision until surgeon follow-up. 12. Please call surgeon/UM SPECIALIST for temp greater than 101 F or purulent drainage from incisions. 13. All prescriptions given by surgeon for 30 days. Refills need to be filled through community relations representative/primary care physician. 14. A Red armband has been placed on the patient. It should be worn for 30 days post surgery and will be removed by the cardiac surgeons. If an ER visit is necessary, please make sure the number on the Red armband is called. 15. You have been referred to and are expected to begin Cardiac Rehab in approximately 4-6 weeks. HOME HEALTH SERVICES TO PROVIDE: RN SKILLED HOME CARE SERVICES FOR POST-OP SURGICAL PATIENTS WITH THE FOLLOWING: Coronary Artery Bypass Surgery (CABG), Mitral Valve Replacement/Repair ( MVR), Aortic Valve Replacement/Repair (AVR) RN TO CONTINUE EDUCATION FROM ``ROAD TO A HEALTH HEART PATIENT EDUCATION MANUAL (GIVEN TO PATIENT IN THE HOSPITAL) MEDICATION RECONCILIATION WITH EDUCATION NEEDED ON FIRST HOME VISIT EMPHASIZE IMPORTANCE OF WEARING BREAST SUPPORT/HEART HUGGER ENCOURAGE USE OF INCENTIVE SPIROMETER 10 X EVERY HOUR WHILE AWAKE ENCOURAGE UTILIZATION OF LOWER EXTREMITY COMPRESSION STOCKINGS/MORENO HOSE and ELEVATE LEGS ABOVE LEVEL OF HEART WHILE AT REST. ENCOURAGE AMBULATION 3-5x/day INCREASING TOLERATES, WHILE AVOIDING EXTREMES IN TEMPERATURE FREQUENCY: RN TO OPEN THE PATIENT WITHIN 24 HOURS OF DISCHARGE FROM THE HOSPITAL WITH TELEHEALTH INSTALLED AT [facility] [place], RN TO VISIT 2-3 X A WEEK FOR 4 WEEKS ESTABLISHED BY PATIENT NEEDS. LABORATORY: CBC, CMP TO BE DRAWN ON THE THIRD DAY HOME, (RAN STAT) FAX RESULTS TO [phone]. TELEHEALTH PARAMETERS: WEIGHT: NOTIFY MD OF WEIGHT GAIN OF 2 LBS IN 24 HOURS OR 5 LBS IN ONE WEEK HR: NOTIFY MD OF HR <55 BPM OR HR>100 BPM BP: NOTIFY MD IF BP <90/55 OR BP>140/100 O2 SAT: NOTIFY MD IF PO2<93% ON ROOM AIR SEND TELEHEALTH REPORT TO NUT DEHYDRATOR OPERATOR AND CARDIOVASCULAR SURGEON THE FIRST WEEK OF CARE AND THEN BI-WEEKLY. PLEASE ADDITIONALLY COMMUNICATE ANY ABNORMALS AND NEW FINDINGS TO THE SURGEONS OFFICE. For any questions or concerns please call rn night Teetee @ or Jack @ Discharge Disposition: HOME WITH HOME HEALTH SERVICES
--- NOTE | 2019-07-25 12:07 | P.PN ---
Subjective Progress Note Date: 07/25/19 This is a 73-year-old female who presented to [facility] with chest discomfort, she ruled in for non-Q-wave myocardial infarction. Underwent a cardiac catheterization which revealed triple vessel coronary artery disease including a proximal LAD 95% occluded, mid LAD 95%, RCA mid l esion of 70-80% which is heavily calcified distally to PDA branch. Patient was recommended to undergo coronary artery bypass surgery. Patient was transferred to [facility], cardiothoracic consultation was requested. Patient does have history of hypertension, diabetes, hyperlipidemia, hypothyroidism. The patient was seen and examined this morning, feels well, denies any chest discomfort or breathing problems. She's been up ambulating without any difficulty. Blood pressure 132/70 with a heart rate 60, 96% on room air. White blood cell count 6.4, hemoglobin 12.2, platelet count 188. Sodium 138, potassium 4.2, BUN 18, creatinine 0.6, magnesium 1.6. 07/19/2019 Patient was seen and examined this morning, ambulating without any difficulty. Denies any chest discomfort. Blood pressure 154/70 with a heart rate in the 70s, 95% on room air. 07/24/2019 Patient seen and examined this morning. In general states she wasn't feeling very well earlier this morning, somewhat congested, poor appetite. Repeat chest x-ray was performed this morning which showed trace bilateral pleural effusions and multifocal scattered subsegmental atelectasis. 07/25/2019 Patient seen and examined this morning, doing well overall. The patient discharged today. Blood pressure 120/56 with a heart rate in the 60s. 94% on room air. Objective - Vital Signs Vital signs: Vital Signs Temp 98.1 F 07/25/19 11:07 Pulse 68 07/25/19 11:07 Resp 16 07/25/19 11:07 BP 120/55 07/25/19 11:07 Pulse Ox 94 L 07/25/19 11:07 Intake & Output 07/24/19 07/25/19 07/25/19 18:59 06:59 18:59 Intake Total 360 840 120 Output Total 300 Balance 360 540 120 Weight 80.7 kg Intake: Oral 360 840 120 Output: Urine 300 Other: Voiding Method Bedside Commode Bedside Commode # Voids 1 1 # Bowel Movements 0 ABP, PAP, CO, CI - Last Documented Arterial Blood Pressure 121/57 Pulmonary Artery Pressure 48/25 Cardiac Output 4.3 Cardiac Index 2.4 - Exam PHYSICAL EXAMINATION: GENERAL: 73-year-old female in no acute distress at the time of my examination HEENT: Head is atraumatic, normocephalic. Pupils equal, round. Sclera anicteric. Conjunctiva are clear. Mucous membranes of the mouth are moist. Neck is supple. There is no elevated jugular venous pressure. No carotid bruit is heard. HEART EXAMINATION: Heart S1, S2 normal. No murmur or gallop heard. CHEST EXAMINATION: Lungs are clear to auscultation and precussion. No chest wall tenderness is noted on palpation or with deep breathing. ABDOMEN: Soft, nontender. Bowel sounds are heard. No organomegaly noted. EXTREMITIES: 2+ peripheral pulses with no evidence of peripheral edema and no calf tenderness noted. NEUROLOGIC patient is awake, alert and oriented 3 . . - Labs CBC & Chem 7: 07/25/19 06:37 07/25/19 06:37 Labs: Abnormal Lab Results - Last 24 Hours (Table) 07/24/19 07/24/19 07/25/19 Range/Units 17:00 21:08 06:37 RBC 2.63 L (3.80-5.40) m/uL Hgb 7.8 L (11.4-16.0) gm/dL Hct 23.5 L (34.0-46.0) % Sodium (137-145) mmol/L BUN (7-17) mg/dL Glucose (74-99) mg/dL POC Glucose (mg/dL) 241 H 258 H (75-99) mg/dL 07/25/19 07/25/19 07/25/19 Range/Units 06:37 06:54 11:53 RBC (3.80-5.40) m/uL Hgb (11.4-16.0) gm/dL Hct (34.0-46.0) % Sodium 136 L (137-145) mmol/L BUN 24 H (7-17) mg/dL Glucose 167 H (74-99) mg/dL POC Glucose (mg/dL) 206 H 200 H (75-99) mg/dL Assessment and Plan Plan: Assessment and plan #1 non-Q-wave myocardial infarction, status post cardiac catheterization which revealed triple vessel coronary artery disease, status post coronary artery bypass grafting surgery #2 hypertension #3 diabetes #4 hyperlipidemia #5 hypothyroidism Plan From cardiology's perspective, we'll continue current medications. Patient may be transferred to rehab once cleared by cardiothoracic surgery. DNP note has been reviewed, I agree with a documented findings and plan of care. Patient was seen and examined.
--- NOTE | 2019-07-25 16:17 | P.PN ---
Subjective Progress Note Date: 07/25/19 Principal diagnosis: Severe coronary artery disease with anticipated bypass grafting on 07/20/2019, non-ST elevated myocardial infarction On 07/19/2019 patient seen in follow-up on selective care unit, she is awake and alert, oriented 3, in no acute distress, no complaints of chest pain, no complaints of difficulty breathing, and a pulse ox is 95%, hemodynamically stable, remains on heparin infusion, no acute events overnight, his labs haven't reviewed, CBC is all within normal limits, sodium is 136, potassium is 4.5, chloride is 110, the rest of the electrolytes and renal profile were within normal limits. The same was 1.4, will replace per protocol. She is tolerating ambulation. On 07/25/2019 patient is seen in follow-up on selective care unit, doing well. She is on room air, no difficulty breathing, pulse ox is 94%, hemodynamically stable, afebrile. Chest x-ray has been reviewed showing bilateral pleural effusions, small, slightly improved. Lung sounds are clear, no rhonchi, no wheezing, patient is working on incentive spirometer. Pain is under good control, all chest tubes have been discontinued, Guzmán has been discontinued. Discharge planning is in progress for discharge home today Objective - Vital Signs Vital signs: Vital Signs Temp 98.1 F 07/25/19 11:07 Pulse 68 07/25/19 11:07 Resp 16 07/25/19 11:07 BP 120/55 07/25/19 11:07 Pulse Ox 94 L 07/25/19 11:07 Intake & Output 07/24/19 07/25/19 07/25/19 18:59 06:59 18:59 Intake Total 360 840 360 Output Total 300 Balance 360 540 360 Weight 80.7 kg Intake: Oral 360 840 360 Output: Urine 300 Other: Voiding Method Bedside Commode Bedside Commode # Voids 1 1 2 # Bowel Movements 0 ABP, PAP, CO, CI - Last Documented Arterial Blood Pressure 121/57 Pulmonary Artery Pressure 48/25 Cardiac Output 4.3 Cardiac Index 2.4 - Exam GENERAL EXAM: Alert, very pleasant, 73-year-old white female, on room air, with pulse ox of 94% comfortable in no apparent distress. HEAD: Normocephalic/atraumatic. EYES: Normal reaction of pupils, equal size. Conjunctiva pink, sclera white. NOSE: Clear with pink turbinates. THROAT: No erythema or exudates. NECK: No masses, no JVD, no thyroid enlargement, no adenopathy. CHEST: No chest wall deformity. Symmetrical expansion. Midsternal incisions clean dry and intact, chest tube sites are clean dry and intact LUNGS: Equal air entry with no wheezes, or crackles CVS: Regular rate and rhythm, normal S1 and S2, no gallops, no murmurs, no rubs ABDOMEN: Soft, nontender. No hepatosplenomegaly, normal bowel sounds, no guarding or rigidity. EXTREMITIES: No clubbing, no edema, no cyanosis, 2+ pulses and upper and lower extremities. MUSCULOSKELETAL: Muscle strength and tone normal. SPINE: No scoliosis or deformity SKIN: No rashes CENTRAL NERVOUS SYSTEM: Alert and oriented -3. No focal deficits, tone is normal in all 4 extremities. PSYCHIATRIC: Alert and oriented -3. Appropriate affect. Intact judgment and insight. - Labs CBC & Chem 7: 07/25/19 06:37 07/25/19 06:37 Labs: Abnormal Lab Results - Last 24 Hours (Table) 07/24/19 07/24/19 07/25/19 Range/Units 17:00 21:08 06:37 RBC 2.63 L (3.80-5.40) m/uL Hgb 7.8 L (11.4-16.0) gm/dL Hct 23.5 L (34.0-46.0) % Sodium (137-145) mmol/L BUN (7-17) mg/dL Glucose (74-99) mg/dL POC Glucose (mg/dL) 241 H 258 H (75-99) mg/dL 07/25/19 07/25/19 07/25/19 Range/Units 06:37 06:54 11:53 RBC (3.80-5.40) m/uL Hgb (11.4-16.0) gm/dL Hct (34.0-46.0) % Sodium 136 L (137-145) mmol/L BUN 24 H (7-17) mg/dL Glucose 167 H (74-99) mg/dL POC Glucose (mg/dL) 206 H 200 H (75-99) mg/dL Assessment and Plan Plan: Assessment: #1. Severe coronary artery disease, status post bypass grafting surgery on 07/20/2019, postoperative day 4 #2. Acute non-ST elevated myocardial infarction #3. COPD, FEV1 of 41% predicted according to the bedside spirometry #4. Hypertension #5. Hypothyroidism #6. Hyperlipidemia #7. Insulin-dependent diabetes mellitus #8. Anxiety #9. IBS, diverticulosis #10. Former smoker #11. GERD/reflux Plan: Patient is doing well, no difficulty breathing, vital signs are stable, tolerating ablation, she is on room air, today's chest x-ray has been reviewed still showing tiny bilateral pleural effusions and interstitial edema, improving, no acute events overnight, discharge planning is in progress for discharge home today, will follow up in the outpatient setting, Dr. Sheppard in 7-10 days I performed a history & physical examination of the patient and discussed their management with my nurse practitioner, Ashli Lindsay. I reviewed the nurse pra ctitioner's note and agree with the documented findings and plan of care. Lung sounds are positive for clear breath sounds. The findings and the impression was discussed with the patient. I attest to the documentation by the nurse practitioner. Time with Patient: Less than 30
== END 2019-07-25 15:15 | disposition home health service (06) | DRG 236 ==
LOC: PREOBSVTOIN 13:22 → 3SCARD 15:27 → 2SICU 07-20 07:48 → 3SCARD 07-23 03:05
PROVIDERS: ADMIT Surgery; ATTEND Surgery
PROC: B54DZZZ Ultrasonography of Bilateral Lower Extremity Veins (ICD-10-PCS; 2019-07-19)
PROC: B24BZZ4 Ultrasonography of Heart with Aorta, Transesophageal (ICD-10-PCS; principal; 2019-07-20 08:00)
PROC: 5A1221Z Performance of Cardiac Output, Continuous (ICD-10-PCS; principal; 2019-07-20 08:00)
PROC: 06BP4ZZ Excision of Right Saphenous Vein, Percutaneous Endoscopic Approach (ICD-10-PCS; principal; 2019-07-20 08:00)
PROC: 02L70CK Occlusion of Left Atrial Appendage with Extraluminal Device, Open Approach (ICD-10-PCS; principal; 2019-07-20 08:00)
PROC: 021009W Bypass Coronary Artery, One Artery from Aorta with Autologous Venous Tissue, Open Approach (ICD-10-PCS; principal; 2019-07-20 08:00)
PROC: 02100Z9 Bypass Coronary Artery, One Artery from Left Internal Mammary, Open Approach (ICD-10-PCS; principal; 2019-07-20 08:00)
DX: I21.4 Non-ST elevation (NSTEMI) myocardial infarction (principal); D62 Acute posthemorrhagic anemia; J90 Pleural effusion, not elsewhere classified; J98.11 Atelectasis; I11.9 Hypertensive heart disease without heart failure; J44.9 Chronic obstructive pulmonary disease, unspecified; E11.9 Type 2 diabetes mellitus without complications; I25.10 Atherosclerotic heart disease of native coronary artery without angina pectoris; E66.9 Obesity, unspecified; E78.5 Hyperlipidemia, unspecified; E83.42 Hypomagnesemia; E89.0 Postprocedural hypothyroidism; F32.9 Major depressive disorder, single episode, unspecified; F41.9 Anxiety disorder, unspecified; K21.9 Gastro-esophageal reflux disease without esophagitis; K57.90 Diverticulosis of intestine, part unspecified, without perforation or abscess without bleeding; K58.9 Irritable bowel syndrome, unspecified; M19.90 Unspecified osteoarthritis, unspecified site; G47.00 Insomnia, unspecified; Z79.4 Long term (current) use of insulin; Z79.890 Hormone replacement therapy; Z79.899 Other long term (current) drug therapy; Z87.891 Personal history of nicotine dependence; Z90.710 Acquired absence of both cervix and uterus; Z96.641 Presence of right artificial hip joint; Z96.652 Presence of left artificial knee joint; Z90.49 Acquired absence of other specified parts of digestive tract; Z68.32 Body mass index [BMI] 32.0-32.9, adult; Z82.49 Family history of ischemic heart disease and other diseases of the circulatory system; Z83.3 Family history of diabetes mellitus
CPT/HCPCS: 71045; 71046; 80048; 80053; 80074; 80076; 81003; 82330; 82805; 83036; 83735; 84439; 84443; 85025; 85027; 85520; 85610; 85730; 86850; 86891; 86900; 86901; 86920; 87070; 93306; 93970; 94002; 94150; 94640; 94760

== ENCOUNTER → 2019-07-28 | Outpatient (CLI) | payer MEDICARE ==
[2019-07-28 17:07] LABS: Basophils % (A) 0 %; Eosinophils # (A) 0.2 k/uL (0-0.7); Eosinophils % (A) 3 %; HCT 29.5 % (34.0-46.0); Hypochromasia Slight; Lymphocytes # (A) 1.5 k/uL (1.0-4.8); Lymphocytes % (A) 20 %; MCH 28.8 pg (25.0-35.0); MCV 89.9 fL (80.0-100.0); Mean Platelet Volume 7.6; Monocytes # (A) 0.4 k/uL (0-1.0); Monocytes % (A) 6 %; Neutrophils # (A) 5.1 k/uL (1.3-7.7); Neutrophils % (A) 70 %; RBC 3.28 m/uL (3.80-5.40); RDW 15.2 % (11.5-15.5); WBC 7.3 k/uL (3.8-10.6)
[2019-07-28 17:20] LABS: ALT 21 U/L (4-34); AST 28 U/L (14-36); African American GFR (CKD) >90 (>60 ml/min/1.73 sqM); Albumin 3.5 g/dL (3.5-5.0); Albumin/Globulin Ratio 1.2; Alkaline Phosphatase 66 U/L (38-126); Anion Gap 7 mmol/L; Blood Urea Nitrogen 13 mg/dL (7-17); Calcium 8.5 mg/dL (8.4-10.2); Carbon Dioxide 28 mmol/L (22-30); Chloride 100 mmol/L (98-107); Glucose 209 mg/dL (74-99); Non-African American GFR(CKD) 80 (>60 ml/min/1.73 sqM); Potassium 3.6 mmol/L (3.5-5.1); Sodium 135 mmol/L (137-145); Total Bilirubin 0.4 mg/dL (0.2-1.3); Total Protein 6.5 g/dL (6.3-8.2)
[2019-07-28 17:21] LABS: HGB 9.4 gm/dL (11.4-16.0); Platelet Count 458 k/uL (150-450)
== END ==
LOC: LABWHC1 16:45
PROVIDERS: ATTEND Nurse Practitioner Acute Care
DX: Z48.812 Encounter for surgical aftercare following surgery on the circulatory system (principal)
CPT/HCPCS: 36415; 80053; 85025

== ENCOUNTER → 2019-08-08 | Outpatient (CLI) | payer MEDICARE ==
[2019-08-08 12:13] LABS: HCT 29.5 % (34.0-46.0); HGB 9.4 gm/dL (11.4-16.0); Hypochromasia Moderate; MCHC 31.8 g/dL (31.0-37.0); MCV 88.1 fL (80.0-100.0); Mean Platelet Volume 7.2; Platelet Count 575 k/uL (150-450); Poikilocytosis Slight; RBC 3.35 m/uL (3.80-5.40); RDW 14.6 % (11.5-15.5); WBC 8.3 k/uL (3.8-10.6)
[2019-08-08 19:09] LABS: African American GFR (CKD) 100.3 (60.0-200.0); Anion Gap 10.9 mmol/L (4.00-12.00); BUN/Creat Ratio 15.71 Ratio (12.00-20.00); Calcium 8.2 mg/dL (8.7-10.3); Carbon Dioxide 26.1 mmol/L (21.6-31.8); Non-African American GFR(CKD) 86.6 (60.0-200.0); Potassium 3.9 mmol/L (3.5-5.5)
[2019-08-09 07:53] LABS: Magnesium 0.8 mg/dL (1.5-2.4)
== END | disposition home or self-care (01) ==
LOC: LABWHC1 11:39
PROVIDERS: ATTEND Nurse Practitioner
DX: I25.810 Atherosclerosis of coronary artery bypass graft(s) without angina pectoris (principal)
CPT/HCPCS: 36415; 80048; 83735; 85027

== ENCOUNTER → 2019-08-18 | Outpatient (CLI) | payer MEDICARE ==
[2019-08-18 19:33] LABS: African American GFR (CKD) 100.3 (60.0-200.0); BUN/Creat Ratio 18.57 Ratio (12.00-20.00); Magnesium 1.4 mg/dL (1.5-2.4); Non-African American GFR(CKD) 86.6 (60.0-200.0); Potassium 4.2 mmol/L (3.5-5.5)
== END | disposition home or self-care (01) ==
LOC: LABWHC1 11:42
PROVIDERS: ATTEND Nurse Practitioner
DX: Z95.1 Presence of aortocoronary bypass graft (principal)
CPT/HCPCS: 36415; 80048; 83735

== ENCOUNTER → 2019-09-26 | Outpatient (CLI) | payer MEDICARE ==
[2019-09-26 11:51] LABS: Basophils % (A) 1 %; Eosinophils # (A) 0.2 k/uL (0-0.7); Eosinophils % (A) 3 %; HCT 38.7 % (34.0-46.0); HGB 11.9 gm/dL (11.4-16.0); Hypochromasia Marked; Lymphocytes # (A) 1.8 k/uL (1.0-4.8); Lymphocytes % (A) 30 %; MCH 26.4 pg (25.0-35.0); MCHC 30.7 g/dL (31.0-37.0); MCV 85.9 fL (80.0-100.0); Mean Platelet Volume 7.9; Monocytes # (A) 0.4 k/uL (0-1.0); Monocytes % (A) 6 %; Neutrophils # (A) 3.3 k/uL (1.3-7.7); Neutrophils % (A) 57 %; Platelet Count 329 k/uL (150-450); RDW 14.9 % (11.5-15.5); WBC 5.9 k/uL (3.8-10.6)
[2019-09-26 16:54] LABS: % Iron Saturation 6.37 (12.00-45.00); African American GFR (CKD) 105.5 (60.0-200.0); Albumin 3.8 g/dL (3.80-4.90); Albumin/Globulin Ratio 1.36 (1.60-3.17); Anion Gap 8.8 mmol/L (4.00-12.00); Carbon Dioxide 29.2 mmol/L (21.6-31.8); Chol/HDL Ratio 2.44; Globulin 2.8 g/dL (1.6-3.3); Magnesium 1.3 mg/dL (1.5-2.4); Non-African American GFR(CKD) 91.1 (60.0-200.0); Phosphorus 3.9 mg/dL (2.4-5.1); Potassium 3.9 mmol/L (3.5-5.5); Total Bilirubin 0.2 mg/dL (0.3-1.2); Total Protein 6.6 g/dL (6.2-8.2)
[2019-09-26 17:27] LABS: Hemoglobin A1C 7.1 % (4.0-6.0)
== END | disposition home or self-care (01) ==
LOC: LABWHC1 11:23
PROVIDERS: ATTEND Internal Medicine Critical Care Medicine
DX: E11.9 Type 2 diabetes mellitus without complications (principal); I25.10 Atherosclerotic heart disease of native coronary artery without angina pectoris; Z95.1 Presence of aortocoronary bypass graft
CPT/HCPCS: 36415; 80053; 80061; 82306; 82728; 83036; 83540; 83550; 83735; 84100; 85025

== ENCOUNTER → 2020-01-25 | Outpatient (CLI) | payer MEDICARE ==
--- NOTE | 2020-01-26 12:50 | BD ---
EXAMINATION TYPE: Axial Bone Density DATE OF EXAM: 01/25/2020 COMPARISON: 06/01/2013 CLINICAL HISTORY: Postmenopausal symptoms Height: 60.7 IN Weight: 162 LBS RISK FACTORS HISTORY OF: Surgery to Hip(left): YES When: AGE 64 Family History of Osteoporosis: YES MOTHER Active: YES Diet low in dairy products/other sources of calcium: YES Postmenopausal woman: PARTIAL HYST AGE 54 MEDICATIONS: Thyroid Medications: YES Which medication: Levothyroxine How Lon+ YEARS Additional Medications: VIT D, LEVOTHYROXINE,CHOLESTEROL MEDS, BLOOD PRESSURE, INSULIN,LISINOPRIL, EXAM MEASUREMENTS: Bone mineral densitometry was performed using the MeBeam System. Bone mineral density as measured about the Lumbar spine is: ----- L1-L4(G/cm2): 1.128 T Score Values are as follows: ----- L2: -0.2 ----- L3: -0.5 ----- L4: -0.4 ----- L1-L4: -0.4 Bone mineral density has: Increased 10.6% since study of: 06/01/2013 Bone mineral density about the R hip (g/cm2): 0.842 T Score values are as follows: -----R Neck: -1.4 -----R Total: -1.1 Bone mineral density has: Decreased -9.7% since study of: 06/01/2013 IMPRESSION: NOTE: T-SCORE=SD OF THE YOUNG ADULT MEAN.
== END | disposition home or self-care (01) ==
LOC: RADBDWWP 16:34
PROVIDERS: ATTEND Orthopaedic Surgery
DX: N95.1 Menopausal and female climacteric states (principal); Z79.890 Hormone replacement therapy; Z79.4 Long term (current) use of insulin
CPT/HCPCS: 77080

== ENCOUNTER → 2020-03-14 | Outpatient (CLI) | payer MEDICARE ==
--- NOTE | 2020-03-14 16:58 | XR ---
EXAMINATION TYPE: XR lumbar spine 2 or 3V DATE OF EXAM: 03/14/2020 CLINICAL HISTORY: Low back pain. TECHNIQUE: Frontal and lateral images of the lumbar spine are obtained. COMPARISON: Outside lumbar spine x-ray January 18, 2020 FINDINGS: There are 5 lumbar type vertebral bodies redemonstrated. The lumbar spine shows stable an d satisfactory alignment without evidence of acute fracture or dislocation. Vertebral body heights an d disk space heights are within normal limits. Mild multilevel anterior spurring. Multilevel spinous process hypertrophy. Facet arthropathy lower lumbar spine. Vascular consultation overlying abdominal aorta. Cholecystectomy clips noted. Osseous structures are demineralized. IMPRESSION: As above. No significant change from recent outside prior x-ray.
--- NOTE | 2020-03-14 17:00 | XR ---
EXAMINATION TYPE: XR cervical spine limited DATE OF EXAM: 03/14/2020 TECHNIQUE: Frontal, lateral, and open mouth view of the cervical spine are obtained. HISTORY: M99.03 M54.42 M99.01 M53.1 COMPARISON: None FINDINGS: The cervical spine is seen only from C1 thru the inferior C6 level, there is grade 1 retro listhesis C2 on C3, C3 on C4, C4 on C5, and C5 on C6. Suboptimal evaluation of the C6-C7 disc space a nd below. Moderate disc space narrowing and anterior spurring C5-C6 level. C1-C2 articulation satisfa ctory on the open mouth frontal view. No suspicious prevertebral soft tissue swelling. Moderate calci fied plaque left carotid bulb level. Overlying sternal wires and mediastinal clips partially imaged. IMPRESSION: As above.
== END | disposition home or self-care (01) ==
LOC: RAD 16:02
PROVIDERS: ATTEND Chiropractor
DX: M48.02 Spinal stenosis, cervical region (principal); M43.12 Spondylolisthesis, cervical region; M47.816 Spondylosis without myelopathy or radiculopathy, lumbar region; M81.8 Other osteoporosis without current pathological fracture
CPT/HCPCS: 72040; 72100

== ENCOUNTER → 2020-08-21 | Outpatient (CLI) | payer MEDICARE ==
[2020-08-21 13:39] LABS: ALT 13 U/L (4-34); AST 22 U/L (14-36); African American GFR (CKD) 77 (>60 ml/min/1.73 sqM); Albumin 3.7 g/dL (3.5-5.0); Albumin/Globulin Ratio 1.3; Alkaline Phosphatase 91 U/L (38-126); Anion Gap 10 mmol/L; Blood Urea Nitrogen 16 mg/dL (7-17); Calcium 9.3 mg/dL (8.4-10.2); Carbon Dioxide 31 mmol/L (22-30); Chloride 87 mmol/L (98-107); Cholesterol 177 mg/dL (<200); Globulin 2.8 g/dL; HDL Cholesterol 44 mg/dL (40-60); LDL Cholesterol,Calculated 95 mg/dL (0-99); Non-African American GFR(CKD) 66 (>60 ml/min/1.73 sqM); Potassium 4.6 mmol/L (3.5-5.1); Sodium 128 mmol/L (137-145); Total Bilirubin 0.7 mg/dL (0.2-1.3); Total Protein 6.5 g/dL (6.3-8.2); Triglycerides 190 mg/dL (<150)
[2020-08-21 13:55] LABS: Glucose 512 mg/dL (74-99)
[2020-08-22 00:35] LABS: Hemoglobin A1C 12.5 % (4.0-6.0)
[2020-08-22 15:37] LABS: Urine Creatinine 122.5 mg/dL
== END | disposition home or self-care (01) ==
LOC: LABWHC1 11:52
PROVIDERS: ATTEND Internal Medicine Endocrinology, Diabetes & Metabolism
DX: E10.65 Type 1 diabetes mellitus with hyperglycemia (principal)
CPT/HCPCS: 36415; 80053; 80061; 82043; 82570; 83036; 84443

== ENCOUNTER → 2020-11-07 | Outpatient (CLI) | payer MEDICARE ==
[2020-11-08 04:06] LABS: T4, Free (Free Thyroxine) 1.7 ng/dL (0.80-1.80)
== END | disposition home or self-care (01) ==
LOC: LABWHC1 16:31
PROVIDERS: ATTEND Internal Medicine Critical Care Medicine
DX: E03.9 Hypothyroidism, unspecified (principal)
CPT/HCPCS: 36415; 84439; 84443

== ENCOUNTER → 2021-09-25 | Outpatient (CLI) | payer MEDICARE ==
--- NOTE | 2021-09-25 22:37 | MR ---
EXAMINATION TYPE: MR lumbar spine wo con DATE OF EXAM: 09/25/2021 COMPARISON: None HISTORY: Low back pain for 9 months Multiplanar multiecho imaging of the lumbar spine without contrast. The vertebra have normal alignment. Disc spaces are fairly normal. There is some hypertrophic facet a rthropathy at L5-S1 with lateral recess stenosis and mild spinal stenosis. There is no lumbar paraspi nal mass. No compression fracture. No significant disc space narrowing. No compression fractures seen of the lumbar spine. There is 25% depression of the superior endplate of T12 that is probably old. Signal pattern is fairl y normal with no significant edema. There is minimal fragment extension posteriorly into the spinal c anal and no significant spinal stenosis. IMPRESSION: Old compression fracture of T12 with no change compared to 08/29/2021. Mild lateral recess stenosis at L5-S1. No acute bony abnormality. There is mild relative spinal steno sis at L5-S1.
== END | disposition home or self-care (01) ==
LOC: RADMRIMAIN 17:28
PROVIDERS: ATTEND Orthopaedic Surgery
DX: M48.07 Spinal stenosis, lumbosacral region (principal); M48.54XA Collapsed vertebra, not elsewhere classified, thoracic region, initial encounter for fracture
CPT/HCPCS: 72148

== ENCOUNTER → 2021-10-27 | Outpatient (CLI) | payer MEDICARE ==
[2021-10-27 14:21] LABS: Basophils # (A) 0.04 X 10*3/uL (0.00-0.10); Basophils % (A) 0.4 %; Eosinophils % (A) 4.3 %; HCT 41.4 % (37.2-46.3); HGB 13.5 g/dL (12.0-15.0); Immature Grans, Automated 0.2 %; Lymphocytes # (A) 2.09 X 10*3/uL (0.90-5.00); Lymphocytes % (A) 22.6 %; MCH 29.5 pg (27.0-32.0); MCHC 32.6 g/dL (32.0-37.0); MCV 90.4 fL (80.0-97.0); Mean Platelet Volume 11.5 fL (9.5-12.2); Monocytes # (A) 0.81 X 10*3/uL (0.20-1.00); Monocytes % (A) 8.7 %; NRBC Per 100 WBC 0 /100 WBCS (0.0-0.0); Neutrophils % (A) 63.8 %; Platelet Count 221 X 10*3/uL (140-440); RBC 4.58 X 10*6/uL (4.10-5.20); RDW 13.1 % (11.5-14.5); WBC 9.26 X 10*3/uL (4.50-10.00)
[2021-10-27 14:53] LABS: LDL Cholesterol,Calculated 76.8 mg/dL (0.0-131.0); VLDL Calculation 14.92 mg/dL (5.00-40.00)
[2021-10-27 16:02] LABS: ALT 22 U/L (8-44); AST 20 U/L (13-35); African American GFR (CKD) 97.9 (60.0-200.0); Albumin 3.9 g/dL (3.8-4.9); Albumin/Globulin Ratio 1.49 (1.60-3.17); Alkaline Phosphatase 65 U/L (41-126); BUN/Creat Ratio 24.08 Ratio (12.00-20.00); Calcium 8.8 mg/dL (8.7-10.3); Carbon Dioxide 27.3 mmol/L (20.0-27.5); Chloride 106 mmol/L (96-109); Globulin 2.6 g/dL (1.6-3.3); Potassium 3.9 mmol/L (3.5-5.5); Sodium 144 mmol/L (135-145); Total Protein 6.5 g/dL (6.2-8.2)
[2021-10-27 16:11] LABS: Glucose 46 mg/dL (70-110); Non-African American GFR(CKD) 84.5 (60.0-200.0)
== END | disposition home or self-care (01) ==
LOC: LABWHC1 09:54
PROVIDERS: ATTEND Internal Medicine Critical Care Medicine
DX: E11.9 Type 2 diabetes mellitus without complications (principal); E78.5 Hyperlipidemia, unspecified
CPT/HCPCS: 36415; 80053; 80061; 82043; 82570; 83036; 84443; 85025

== ENCOUNTER 2022-04-20 22:53 | Emergency (ER) | payer MEDICARE ==
[2022-04-20 23:02] VITALS: PULSE 52; RESP 20; TEMP 98
--- NOTE | 2022-04-20 23:09 | ED ---
Female Urogenital HPI - General Chief complaint: Urogenital Stated complaint: Post-Op Urinary Retention Time Seen by Provider: 04/20/22 23:06 Source: patient, RN notes reviewed, old records reviewed Mode of arrival: ambulatory Limitations: no limitations - History of Present Illness Initial comments: This is a 76-year-old female DF for evaluation she presents today for evaluation regards to inability ER today. Is a chronic issue for her is multiple ladder suspensions pain with urination and frequency of urination. Patient coming in for always complaints and she started her urologist earlier today. Patient was given injections in her urethra which has not helped. Patient is asking and requesting dentistry catheterization. No abdominal pain MD Complaint: dysuria -: hour(s) Location: suprapubic Severity: severe Severity scale (1-10): 9 Quality: sharp Consistency: constant Worsens with: none Patient : No Associated Symptoms: abdominal pain, nausea/vomiting, weakness - Related Data Sexually active: No Home Medications Medication Instructions Recorded Confirmed Dicyclomine [Bentyl] 10 mg PO AC-TID 07/17/19 07/17/19 Insulin NPH Human Isophane 13 units SQ AC-BID 07/17/19 07/17/19 [NovoLIN N] Insulin NPH Human Isophane See Protocol SQ AC-BID 07/17/19 07/17/19 [NovoLIN N] Levothyroxine Sodium [Synthroid] 100 mcg PO DAILY 07/17/19 07/17/19 Previous Rx's Medication Instructions Recorded Acetaminophen Tab [Tylenol] 1,000 mg PO Q6HR PRN tab 07/25/19 Aspirin 325 mg PO DAILY #30 tab 07/25/19 Atorvastatin [Lipitor] 40 mg PO DAILY #30 tab 07/25/19 Clopidogrel [Plavix] 75 mg PO DAILY #30 tab 07/25/19 Furosemide [Lasix] 20 mg PO DAILY #5 tab 07/25/19 Melatonin 6 mg PO HS PRN tablet 07/25/19 Metoprolol Tartrate [Lopressor] 25 mg PO BID #60 tab 07/25/19 Pantoprazole [Protonix] 40 mg PO AC-BRKFST #30 tablet. 07/25/19 Sennosides-Docusate Sodium 2 each PO HS PRN tab 07/25/19 [Senokot-S] guaiFENesin [Mucinex] 600 mg PO BID PRN #14 tab.er.12h 07/25/19 Allergies Allergy/AdvReac Type Severity Reaction Status Date / Time No Known Allergies Allergy Verified 07/17/19 15:57 Review of Systems ROS Statement: Those systems with pertinent positive or pertinent negative responses have been documented in the HPI. ROS Other: All systems not noted in ROS Statement are negative. Past Medical History Past Medical History: Coronary Artery Disease (CAD), Chest Pain / Angina, Diabetes Mellitus, GERD/Reflux, Hyperlipidemia, Hypertension, Osteoarthritis (OA), Thyroid Disorder Additional Past Medical History / Comment(s): diverticulitis, IBS, back fracture, herniated discs, bronchitis History of Any Multi-Drug Resistant Organisms: None Reported Past Surgical History: Cholecystectomy, Hysterectomy, Orthopedic Surgery, Tonsillectomy Additional Past Surgical History / Comment(s): right hip replacement, rotator cuff, left knee replacement, thyroidectomy, bladder suspension, EGD, colonoscopy Past Anesthesia/Blood Transfusion Reactions: No Reported Reaction Additional Past Anesthesia/Blood Transfusion Reaction / Comment(s): "slow coming out of it" Past Psychological History: Anxiety, Depression Past Alcohol Use History: None Reported Past Drug Use History: None Reported - Past Family History Father Family Medical History: Diabetes Mellitus, Myocardial Infarction ([place]) Additional Family Medical History / Comment(s): heart disease Mother Family Medical History: Myocardial Infarction ([place]) Additional Family Medical History / Comment(s): heart disease General Exam Limitations: no limitations General appearance: alert, in no apparent distress, anxious Head exam: Present: atraumatic, normocephalic, normal inspection Eye exam: Present: normal appearance, PERRL, EOMI. Absent: scleral icterus, conjunctival injection, periorbital swelling ENT exam: Present: normal exam, mucous membranes moist Neck exam: Present: normal inspection. Absent: tenderness, meningismus, lymphadenopathy Respiratory exam: Present: normal lung sounds bilaterally. Absent: respiratory distress, wheezes, rales, rhonchi, stridor Cardiovascular Exam: Present: regular rate, normal rhythm, normal heart sounds. Absent: systolic murmur, diastolic murmur, rubs, gallop, clicks GI/Abdominal exam: Present: soft, normal bowel sounds. Absent: distended, tenderness, guarding, rebound, rigid Extremities exam: Present: normal inspection, full ROM, normal capillary refill. Absent: tenderness, pedal edema, joint swelling, calf tenderness Back exam: Present: normal inspection Neurological exam: Present: alert, oriented X3, CN II-XII intact Psychiatric exam: Present: normal affect, normal mood Skin exam: Present: warm, dry, intact, normal color. Absent: rash Course Vital Signs 04/20/22 22:58 Temperature 98 F Pulse Rate 52 L Respiratory 20 Rate O2 Sat by Pulse 95 Oximetry - Reevaluation(s) Reevaluation #1: 04/20/22 23:08 Medical record is reviewed Reevaluation #2: 04/20/22 23:08 Guzmán catheter is placed without difficulty, significant output Medical Decision Making - Medical Decision Making 76 female with urinary retention after surgery. Guzmán is placed symptoms improved patient will be able to be discharged as a straight catheter Disposition Clinical Impression: Urinary retention Disposition: HOME SELF-CARE Condition: Good Instructions (If sedation given, give patient instructions): Acute Urinary Retention in Women (ED) Is patient prescribed a controlled substance at d/c from ED?: No Referrals: Andria Sheppard MD [Primary Care Provider] - 1-2 days Time of Disposition: 00:30
[2022-04-21 01:35] LABS: Appearance,Urine Clear (Clear); Bacteria,Urine Rare /hpf; Bilirubin,Urine Negative (Negative); Blood,Urine Small (Negative); Color,Urine Light Yellow; Glucose,Urine (UA) 4+ (Negative); Ketones,Urine Negative (Negative); Leukocyte Esterase,Urine Small (Negative); Mucus,Urine Rare /hpf; Nitrite,Urine Negative (Negative); PH, Urine 6.5 (5.0-8.0); Protein,Urine 2+ (Negative); RBC,Urine 20 /hpf (0-5); Specific Gravity,Urine 1.015 (1.001-1.035); Urobilinogen,Urine <2.0 mg/dL (<2.0); WBC,Urine 8 /hpf (0-5)
== END 2022-04-21 01:19 | disposition home or self-care (01) ==
LOC: EC 22:53
DX: R33.9 Retention of urine, unspecified (principal); I25.10 Atherosclerotic heart disease of native coronary artery without angina pectoris; E11.9 Type 2 diabetes mellitus without complications; I10 Essential (primary) hypertension; E07.9 Disorder of thyroid, unspecified; Z79.4 Long term (current) use of insulin; Z79.890 Hormone replacement therapy; Z79.899 Other long term (current) drug therapy
CPT/HCPCS: 81001; 99283

== ENCOUNTER 2022-10-15 12:21 | Emergency (ER) | payer MEDICARE ==
[2022-10-15] MEDS ORDERED: SODIUM CHLORIDE 0.9% 1,000 ML IV STA (13:18)
--- NOTE | 2022-10-15 13:41 | ED ---
General Adult HPI - General Chief complaint: Psychiatric Symptoms Stated complaint: mental instability Time Seen by Provider: 10/15/22 12:48 Source: patient, RN notes reviewed, old records reviewed Mode of arrival: ambulatory Limitations: no limitations - History of Present Illness Initial comments: Patient is a 76-year-old female with past medical history remarkable for CAD, COPD, hypertension, with a recently placed bladder stimulator, poorly controlled diabetes who presents emergency Department complaining of high blood sugars, as well as depression. Has been feeling more depressed over the last few weeks. States she has less of an appetite. Did not take her normal medications this morning. States she feels down. Is uncertain why. Less sleep as well. Denies any chest pain or shortness of breath. Denies any abdominal pain, nausea, vo miting. Denies any urinary complaints. Has no other focal complaints at this time. Presents for further evaluation at this time.Patient does endorse suicidal ideations but denies any plans or attempts. Denies any homicidal ideations, attempts, plans. Denies any visual or auditory hallucinations. - Related Data Home Medications Medication Instructions Recorded Confirmed Levothyroxine Sodium [Synthroid] 100 mcg PO DAILY 07/17/19 10/15/22 Aspirin 81 mg PO DAILY 10/15/22 10/15/22 Cholecalciferol [Vitamin D3 (25 50 mcg PO DAILY 10/15/22 10/15/22 Mcg = 1000 Iu)] Escitalopram Oxalate [Lexapro] 20 mg PO DAILY 10/15/22 10/15/22 Insulin Glargine,Hum.rec.anlog 24 units SQ QAM 10/15/22 10/15/22 [Kaye Weir] LORazepam [Ativan] 0.5 mg PO DAILY PRN 10/15/22 10/15/22 Multivitamins, Thera [Multivitamin 1 tab PO DAILY 10/15/22 10/15/22 (formulary)] Omeprazole [PriLOSEC] 20 mg PO DAILY 10/15/22 10/15/22 amLODIPine [Norvasc] 5 mg PO DAILY 10/15/22 10/15/22 buPROPion XL [Wellbutrin XL] 150 mg PO DAILY 10/15/22 10/15/22 Previous Rx's Medication Instructions Recorded Atorvastatin [Lipitor] 40 mg PO DAILY #30 tab 07/25/19 Metoprolol Tartrate [Lopressor] 25 mg PO BID #60 tab 07/25/19 Allergies Allergy/AdvReac Type Severity Reaction Status Date / Time No Known Allergies Allergy Verified 10/15/22 12:47 Review of Systems ROS Statement: Those systems with pertinent positive or pertinent negative responses have been documented in the HPI. Review of Systems: CONST: Denies fever EYES: Denies blurry vision ENT: Denies nasal congestion C/V: Denies Chest pain RESP: Denies shortness of breath GI: Denies abdominal pain : Denies dysuria SKIN: Denies rash. MSK: Denies joint pain. NEURO: Denies headache PSYCH: Denies homicidal ideations/plans/attempts. Denies visual or auditory hallucinations. She endorses depression. Endorses suicidal ideations but denies plans or attempts. ROS Other: All systems not noted in ROS Statement are negative. Past Medical History Past Medical History: Coronary Artery Disease (CAD), Chest Pain / Angina, Diabetes Mellitus, GERD/Reflux, Hyperlipidemia, Hypertension, Osteoarthritis (OA), Thyroid Disorder Additional Past Medical History / Comment(s): diverticulitis, IBS, back fracture, herniated discs, bronchitis History of Any Multi-Drug Resistant Organisms: None Reported Past Surgical History: Back Surgery, Cholecystectomy, Hysterectomy, Orthopedic Surgery, Tonsillectomy Additional Past Surgical History / Comment(s): right hip replacement, rotator cuff, left knee replacement, thyroidectomy, bladder suspension, EGD, colonoscopy Past Anesthesia/Blood Transfusion Reactions: No Reported Reaction Additional Past Anesthesia/Blood Transfusion Reaction / Comment(s): "slow coming out of it" Past Psychological History: Anxiety, Depression Smoking Status: Former smoker Past Alcohol Use History: None Reported Past Drug Use History: None Reported - Past Family History Father Family Medical History: Diabetes Mellitus, Myocardial Infarction (ND) Additional Family Medical History / Comment(s): heart disease Mother Family Medical History: Myocardial Infarction (ND) Additional Family Medical History / Comment(s): heart disease General Exam - General Exam Comments Initial Comments: General: Appears in no acute distress. HEAD: Normal with no signs of head trauma. EYES: PERRLA, EOMI, conjunctiva normal, no discharge. ENT: Hearing grossly intact, normal oropharynx. RESPIRATORY: Clear breath sounds bilaterally. No wheezes, rales, or rhonchi. C/V: Regular rate and rhythm. S1 and S2 auscultated, no edema, peripheral pulses 2+ and intact throughout ABD: Abd is soft, nontender, nondistended EXT: Normal range of motion, no obvious deformity SKIN: No rashes or lesions observed on exposed skin. Placement of the bladder stimulator wound does not really reveal any obvious infection. healing well. NEURO: Alert and oriented x 4. Cranial nerves II-XII intact. No focal sensory or strength deficits. Limitations: no limitations Course Vital Signs 10/15/22 10/15/22 10/15/22 12:43 16:13 17:37 Temperature 98.1 F 98.6 F Pulse Rate 65 76 60 Respiratory 20 18 18 Rate Blood Pressure 196/83 206/89 203/92 O2 Sat by Pulse 97 96 96 Oximetry 10/15/22 10/15/22 10/15/22 18:23 19:00 21:00 Temperature Pulse Rate 60 61 72 Respiratory 18 16 16 Rate Blood Pressure 156/66 163/74 143/95 O2 Sat by Pulse 98 98 96 Oximetry 10/16/22 10/16/22 05:06 08:31 Temperature 98 F Pulse Rate 67 Respiratory 16 19 Rate Blood Pressure 137/96 O2 Sat by Pulse 97 Oximetry Medical Decision Making - Medical Decision Making Was pt. sent in by a medical professional or institution (, PA, WEB CONTENT DIRECTOR, urgent care, hospital, or senior living...) When possible be specific @ -No Did you speak to anyone other than the patient for history (EMS, parent, family, police, friend...)? What history was obtained from this source @ -No Did you review nursing and triage notes (agree or disagree)? Why? @ -I reviewed and agree with nursing and triage notes Were old charts reviewed (outside hosp., previous admission, EMS record, old EKG, old radiological studies, urgent care reports/EKG's, senior living records)? Report findings @ -Old EKGs reviewed from July 2019. Differential Diagnosis (chest pain, altered mental status, abdominal pain women, abdominal pain men, vaginal bleeding, weakness, fever, dyspnea, syncope, headache, dizziness, GI bleed, back pain, seizure, CVA, palpatations, mental health, musculoskeletal)? @ -Differential Mental Health Depression, anxiety, bipolar, psychosis, schizophrenia, borderline personality, situational depression, adjustment disorder, behavioral disorder, brain tumor, malingering, substance abuse, encephalopathy, medication reaction, dementia, hypothyroidism, degenerative neurologic disorder, lupus.... This is not meant to be all-inclusive list EKG interpreted by me (3pts min.). @ -As above X-rays interpreted by me (1pt min.). @ -None done CT interpreted by me (1pt min.). @ -None done U/S interpreted by me (1pt. min.). @ -None done What testing was considered but not performed or refused? (CT, X-rays, U/S, labs)? Why? @ -None What meds were considered but not given or refused? Why? @ -None Did you discuss the management of the patient with other professionals (professionals i.e. , PA, WEB CONTENT DIRECTOR, lab, RT, psych nurse, social organization professor, acupuncture physician, teacher, protocol officer, heel caser)? Give summary @ -No Was smoking cessation discussed for >3mins.? @ -No Was critical care preformed (if so, how long)? @ -No Were there social determinants of health that impacted care today? How? (Homelessness, low income, unemployed, alcoholism, drug addiction, transportation, low edu. Level, literacy, decrease access to med. care, snf, rehab)? @ -No Was there de-escalation of care discussed even if they declined (Discuss DNR or withdrawal of care, Hospice)? DNR status @ -No What co-morbidities impacted this encounter? (DM, HTN, Smoking, COPD, CAD, Cancer, CVA, ARF, Chemo, Hep., AIDS, mental health diagnosis, sleep apnea, morbid obesity)? @ -None Was patient admitted / discharged? Hospital course, mention meds given and r oute, prescriptions, significant lab abnormalities, going to OR and other pertinent info. @ -Based on the patient's presentation and physical exam, presents complaining of depression, hypertension, with history of diabetes is not currently taking any regular medications presents emergency Department seeking psychiatric evaluation. States she feels depressed. She is placed in green scrubs. Sitter was ordered. Suicide precautions were reviewed. We will obtain basic labs to evaluate her hyperglycemia. We also provide her with doses of her normal antihypertensive medications. Patient was in agreement this plan. She'll ice is no acute complaints at this time. Vital signs within acceptable limits other than the hypertension. Patient's laboratory studies are remarkable for a hyperglycemia of 345, as well as a hypomagnesemia of 1.4. No evidence of DKA. Remainder of the workup is unremarkable. On reevaluation, patient maintains asymptomatic. His asymptomatic hypertension. We will give her her normal doses of blood pressure medications that she skipped this morning including Norvasc and metoprolol. She'll also receive Ativan IV push of insulin. Patient was in agreement this plan. At this time patient is medically cleared for reevaluation by psychiatry. Disposition is pending psychiatric evaluation. EPS is notified. Patient evaluated by EPS. She'll be accepted to inpatient psychiatry at [facility] accepting physician is Dr. Menezes. Transfer via EMS. Undiagnosed new problem with uncertain prognosis? @ -No Drug Therapy requiring intensive monitoring for toxicity (Heparin, Nitro, Insu masood, Cardizem)? @ -No Were any procedures done? @ -No Diagnosis/symptom? @ -Encounter for psychiatric evaluation, depression, suicidal ideation Acute, or Chronic, or Acute on Chronic? @ -Acute Uncomplicated (without systemic symptoms) or Complicated (systemic symptoms)? @ -Uncomplicated Side effects of treatment? @ -none Exacerbation, Progression, or Severe Exacerbation] @ -no Poses a threat to life or bodily function? @ -Yes Diagnosis/symptom? @ -Hyperglycemia in the setting of poorly controlled diabetes Acute, or Chronic, or Acute on Chronic? @ -Acute on chronic Uncomplicated (without systemic symptoms) or Complicated (systemic symptoms)? @ -Uncomplicated Side effects of treatment? @ -none Exacerbation, Progression, or Severe Exacerbation] @ -no Poses a threat to life or bodily function? @ -no Diagnosis/symptom? @ -Hypomagnesemia Acute, or Chronic, or Acute on Chronic? @ -Acute Uncomplicated (without systemic symptoms) or Complicated (systemic symptoms)? @ -Uncomplicated Side effects of treatment? @ -none Exacerbation, Progression, or Severe Exacerbation] @ -no Poses a threat to life or bodily function? @ -no Diagnosis/symptom? @ -Asymptomatic hypertension in the setting of medication noncompliance Acute, or Chronic, or Acute on Chronic? @ -Acute Uncomplicated (without systemic symptoms) or Complicated (systemic symptoms)? @ -Uncomplicated Side effects of treatment? @ -none Exacerbation, Progression, or Severe Exacerbation] @ -no Poses a threat to life or bodily function? @ -no - Lab Data Result diagrams: 10/15/22 13:36 10/15/22 13:36 Lab Results 10/15/22 10/15/22 10/15/22 Range/Units 13:36 13:36 13:36 WBC 5.2 (3.8-10.6) k/uL RBC 4.55 (3.80-5.40) m/uL Hgb 13.0 (11.4-16.0) gm/dL Hct 39.5 (34.0-46.0) % MCV 86.7 (80.0-100.0) fL MCH 28.5 (25.0-35.0) pg MCHC 32.8 (31.0-37.0) g/dL RDW 13.7 (11.5-15.5) % Plt Count 188 (150-450) k/uL MPV 8.9 Neutrophils % 64 % Lymphocytes % 25 % Monocytes % 6 % Eosinophils % 3 % Basophils % 1 % Neutrophils # 3.4 (1.3-7.7) k/uL Lymphocytes # 1.3 (1.0-4.8) k/uL Monocytes # 0.3 (0-1.0) k/uL Eosinophils # 0.1 (0-0.7) k/uL Basophils # 0.0 (0-0.2) k/uL Sodium (137-145) mmol/L Potassium (3.5-5.1) mmol/L Chloride (98-107) mmol/L Carbon Dioxide (22-30) mmol/L Anion Gap mmol/L BUN (7-17) mg/dL Creatinine (0.52-1.04) mg/dL Est GFR (CKD-EPI)AfAm (>60 ml/min/1.73 sqM) Est GFR (CKD-EPI)NonAf (>60 ml/min/1.73 sqM) Glucose (74-99) mg/dL POC Glucose (mg/dL) (70-110) mg/dL POC Glu [employer] ID Calcium (8.4-10.2) mg/dL Magnesium (1.6-2.3) mg/dL Total Bilirubin (0.2-1.3) mg/dL AST (14-36) U/L ALT (4-34) U/L Alkaline Phosphatase (38-126) U/L Total Protein (6.3-8.2) g/dL Albumin (3.5-5.0) g/dL Urine Color Yellow Urine Appearance Clear (Clear) Urine pH 6.5 (5.0-8.0) Ur Specific [place] 1.015 (1.001-1.035) Urine Protein 1+ H (Negative) Urine Glucose (UA) 4+ H (Negative) Urine Ketones Trace H (Negative) Urine Blood Negative (Negative) Urine Nitrite Negative (Negative) Urine Bilirubin Negative (Negative) Urine Urobilinogen <2.0 (<2.0) mg/dL Ur Leukocyte Esterase Negative (Negative) Urine RBC 1 (0-5) /hpf Urine WBC 1 (0-5) /hpf Ur Squamous Epith Cells 1 (0-4) /hpf Hyaline Casts 1 (0-2) /lpf Urine Opiates Screen Not Detected (NotDetected) Ur Oxycodone Screen Not Detected (NotDetected) Urine Methadone Screen Not Detected (NotDetected) Ur Propoxyphene Screen Not Detected (NotDetected) Ur Barbiturates Screen Not Detected (NotDetected) U Tricyclic Antidepress Not Detected (NotDetected) Ur Phencyclidine Scrn Not Detected (NotDetected) Ur Amphetamines Screen Not Detected (NotDetected) U Methamphetamines Scrn Not Detected (NotDetected) U Benzodiazepines Scrn Detected H (NotDetected) Urine Cocaine Screen Not Detected (NotDetected) U Marijuana (THC) Screen Not Detected (NotDetected) Serum Alcohol mg/dL Acetone, Qual (Negative) Coronavirus (PCR) (Not Detectd) 10/15/22 10/15/22 10/16/22 Range/Units 13:36 18:50 08:08 WBC (3.8-10.6) k/uL RBC (3.80-5.40) m/uL Hgb (11.4-16.0) gm/dL Hct (34.0-46.0) % MCV (80.0-100.0) fL MCH (25.0-35.0) pg MCHC (31.0-37.0) g/dL RDW (11.5-15.5) % Plt Count (150-450) k/uL MPV Neutrophils % % Lymphocytes % % Monocytes % % Eosinophils % % Basophils % % Neutrophils # (1.3-7.7) k/uL Lymphocytes # (1.0-4.8) k/uL Monocytes # (0-1.0) k/uL Eosinophils # (0-0.7) k/uL Basophils # (0-0.2) k/uL Sodium 134 L (137-145) mmol/L Potassium 3.8 (3.5-5.1) mmol/L Chloride 99 (98-107) mmol/L Carbon Dioxide 27 (22-30) mmol/L Anion Gap 8 mmol/L BUN 18 H (7-17) mg/dL Creatinine 0.70 (0.52-1.04) mg/dL Est GFR (CKD-EPI)AfAm >90 (>60 ml/min/1.73 sqM) Est GFR (CKD-EPI)NonAf 85 (>60 ml/min/1.73 sqM) Glucose 345 H (74-99) mg/dL POC Glucose (mg/dL) 298 H (70-110) mg/dL POC Glu [employer] Marguerite Hall Calcium 8.8 (8.4-10.2) mg/dL Magnesium 1.4 L (1.6-2.3) mg/dL Total Bilirubin 0.5 (0.2-1.3) mg/dL AST 25 (14-36) U/L ALT 21 (4-34) U/L Alkaline Phosphatase 68 (38-126) U/L Total Protein 6.5 (6.3-8.2) g/dL Albumin 3.5 (3.5-5.0) g/dL Urine Color Urine Appearance (Clear) Urine pH (5.0-8.0) Ur Specific [place] (1.001-1.035) Urine Protein (Negative) Urine Glucose (UA) (Negative) Urine Ketones (Negative) Urine Blood (Negative) Urine Nitrite (Negative) Urine Bilirubin (Negative) Urine Urobilinogen (<2.0) mg/dL Ur Leukocyte Esterase (Negative) Urine RBC (0-5) /hpf Urine WBC (0-5) /hpf Ur Squamous Epith Cells (0-4) /hpf Hyaline Casts (0-2) /lpf Urine Opiates Screen (NotDetected) Ur Oxycodone Screen (NotDetected) Urine Methadone Screen (NotDetected) Ur Propoxyphene Screen (NotDetected) Ur Barbiturates Screen (NotDetected) U Tricyclic Antidepress (NotDetected) Ur Phencyclidine Scrn (NotDetected) Ur Amphetamines Screen (NotDetected) U Methamphetamines Scrn (NotDetected) U Benzodiazepines Scrn (NotDetected) Urine Cocaine Screen (NotDetected) U Marijuana (THC) Screen (NotDetected) Serum Alcohol <10 mg/dL Acetone, Qual Negative (Negative) Coronavirus (PCR) Not Detected (Not Detectd) 10/16/22 Range/Units 11:53 WBC (3.8-10.6) k/uL RBC (3.80-5.40) m/uL Hgb (11.4-16.0) gm/dL Hct (34.0-46.0) % MCV (80.0-100.0) fL MCH (25.0-35.0) pg MCHC (31.0-37.0) g/dL RDW (11.5-15.5) % Plt Count (150-450) k/uL MPV Neutrophils % % Lymphocytes % % Monocytes % % Eosinophils % % Basophils % % Neutrophils # (1.3-7.7) k/uL Lymphocytes # (1.0-4.8) k/uL Monocytes # (0-1.0) k/uL Eosinophils # (0-0.7) k/uL Basophils # (0-0.2) k/uL Sodium (137-145) mmol/L Potassium (3.5-5.1) mmol/L Chloride (98-107) mmol/L Carbon Dioxide (22-30) mmol/L Anion Gap mmol/L BUN (7-17) mg/dL Creatinine (0.52-1.04) mg/dL Est GFR (CKD-EPI)AfAm (>60 ml/min/1.73 sqM) Est GFR (CKD-EPI)NonAf (>60 ml/min/1.73 sqM) Glucose (74-99) mg/dL POC Glucose (mg/dL) 133 H (70-110) mg/dL POC Glu [employer] Enmanuel Cole Calcium (8.4-10.2) mg/dL Magnesium (1.6-2.3) mg/dL Total Bilirubin (0.2-1.3) mg/dL AST (14-36) U/L ALT (4-34) U/L Alkaline Phosphatase (38-126) U/L Total Protein (6.3-8.2) g/dL Albumin (3.5-5.0) g/dL Urine Color Urine Appearance (Clear) Urine pH (5.0-8.0) Ur Specific [place] (1.001-1.035) Urine Protein (Negative) Urine Glucose (UA) (Negative) Urine Ketones (Negative) Urine Blood (Negative) Urine Nitrite (Negative) Urine Bilirubin (Negative) Urine Urobilinogen (<2.0) mg/dL Ur Leukocyte Esterase (Negative) Urine RBC (0-5) /hpf Urine WBC (0-5) /hpf Ur Squamous Epith Cells (0-4) /hpf Hyaline Casts (0-2) /lpf Urine Opiates Screen (NotDetected) Ur Oxycodone Screen (NotDetected) Urine Methadone Screen (NotDetected) Ur Propoxyphene Screen (NotDetected) Ur Barbiturates Screen (NotDetected) U Tricyclic Antidepress (NotDetected) Ur Phencyclidine Scrn (NotDetected) Ur Amphetamines Screen (NotDetected) U Methamphetamines Scrn (NotDetected) U Benzodiazepines Scrn (NotDetected) Urine Cocaine Screen (NotDetected) U Marijuana (THC) Screen (NotDetected) Serum Alcohol mg/dL Acetone, Qual (Negative) Coronavirus (PCR) (Not Detectd) - EKG Data -: EKG Interpreted by Me EKG Comments: 12-lead Electrocardiogram Interpretation Note EKG was reviewed and interpreted by myself. 12-lead ECG performed at 1323 is interpreted by me as revealing normal sinus rhythm at a rate of 60 beats per minute. Left axis deviation. IA interval is 203 ms, QRS duration is 136 ms, QTc is 480 ms.. There were no acute ST or T wave abnormalities to suggest myocardial ischemia or injury. Patient does have chronic T-wave inversion seen in leads V2 and V3 when comparing with prior EKG from July 2019. R wave progression across the precordium was was delayed. By my interpretation this EKG is non-diagnostic for acute ischemia. Disposition Clinical Impression: Hypomagnesemia, Asymptomatic hypertension, Nonadherence to medication, Diabetes, Encounter for psychiatric assessment, Suicidal ideation Disposition: TRANSFER TO PSYCH HOSP/UNIT Condition: Stable Referrals: Andria Sheppard MD [Primary Care Provider] - 1-2 days
[2022-10-15 13:48] LABS: Basophils % (A) 1 %; Eosinophils # (A) 0.1 k/uL (0-0.7); Eosinophils % (A) 3 %; HCT 39.5 % (34.0-46.0); Lymphocytes # (A) 1.3 k/uL (1.0-4.8); Lymphocytes % (A) 25 %; MCH 28.5 pg (25.0-35.0); MCHC 32.8 g/dL (31.0-37.0); MCV 86.7 fL (80.0-100.0); Mean Platelet Volume 8.9; Monocytes # (A) 0.3 k/uL (0-1.0); Monocytes % (A) 6 %; Neutrophils # (A) 3.4 k/uL (1.3-7.7); Neutrophils % (A) 64 %; Platelet Count 188 k/uL (150-450); RBC 4.55 m/uL (3.80-5.40); RDW 13.7 % (11.5-15.5); WBC 5.2 k/uL (3.8-10.6)
[2022-10-15 14:03] LABS: ALT 21 U/L (4-34); AST 25 U/L (14-36); African American GFR (CKD) >90 (>60 ml/min/1.73 sqM); Albumin 3.5 g/dL (3.5-5.0); Alcohol <10 mg/dL; Alkaline Phosphatase 68 U/L (38-126); Anion Gap 8 mmol/L; Blood Urea Nitrogen 18 mg/dL (7-17); Calcium 8.8 mg/dL (8.4-10.2); Carbon Dioxide 27 mmol/L (22-30); Chloride 99 mmol/L (98-107); Glucose 345 mg/dL (74-99); Magnesium 1.4 mg/dL (1.6-2.3); Non-African American GFR(CKD) 85 (>60 ml/min/1.73 sqM); Potassium 3.8 mmol/L (3.5-5.1); Sodium 134 mmol/L (137-145); Total Bilirubin 0.5 mg/dL (0.2-1.3); Total Protein 6.5 g/dL (6.3-8.2)
[2022-10-15 14:13] LABS: Appearance,Urine Clear (Clear); Bilirubin,Urine Negative (Negative); Blood,Urine Negative (Negative); Color,Urine Yellow; Glucose,Urine (UA) 4+ (Negative); Hyaline Casts,Urine 1 /lpf (0-2); Ketones,Urine Trace (Negative); Leukocyte Esterase,Urine Negative (Negative); Nitrite,Urine Negative (Negative); PH, Urine 6.5 (5.0-8.0); Protein,Urine 1+ (Negative); RBC,Urine 1 /hpf (0-5); Specific Gravity,Urine 1.015 (1.001-1.035); Squamous Epithelial Cell,Urine 1 /hpf (0-4); Urobilinogen,Urine <2.0 mg/dL (<2.0); WBC,Urine 1 /hpf (0-5)
[2022-10-15 14:22] LABS: Amphetamine Screen,Urine Not Detected (NotDetected); Barbiturate Screen,Urine Not Detected (NotDetected); Benzodiazepines Screen,Urine Detected (NotDetected); Cocaine Screen,Urine Not Detected (NotDetected); Methadone Screen, Urine Not Detected (NotDetected); Opiate Screen,Urine Not Detected (NotDetected); Oxycodone Screen, Urine Not Detected (NotDetected); Phencyclidine Screen,Urine Not Detected (NotDetected); Tricyclic Antidepressant,Urine Not Detected (NotDetected); Urn Cannabinoid Scrn Not Detected (NotDetected)
[2022-10-15] MEDS ORDERED: DEXTROSE 50% SYRINGE 50 ML IVP PRN ×2 (14:24)
[2022-10-15] MEDS ORDERED: INSULIN ASPART (NovoLOG) 100 UNIT/ML VIAL SQ ONE (14:32)
[2022-10-15] MEDS: amLODIPine 5 MG TAB PO SCH (15:42)
[2022-10-15] MEDS ORDERED: METOPROLOL TARTRATE 25 MG TAB PO STA (15:43)
[2022-10-15] MEDS ORDERED: hydrALAZINE HCL 20 MG/ML 1 ML VIAL IVP STA (16:02)
[2022-10-15] MEDS: METOPROLOL TARTRATE 25 MG TAB PO SCH (20:45)
[2022-10-15] MEDS: INSULIN ASPART (NovoLOG) 100 UNIT/ML VIAL SQ SCH (21:09)
[2022-10-16] MEDS ORDERED: LEVOTHYROXINE 100 MCG TAB PO SCH (06:30)
[2022-10-16] MEDS ORDERED: PANTOPRAZOLE 40 MG TABLET PO SCH (07:30)
[2022-10-16 08:09] LABS: Glucose,Whole Blood 298 mg/dL (70-110)
[2022-10-16 08:32] VITALS: BP 137/96; PULSE 67; RESP 19; TEMP 98
[2022-10-16] MEDS: amLODIPine 5 MG TAB PO SCH (08:33)
[2022-10-16] MEDS: METOPROLOL TARTRATE 25 MG TAB PO SCH (08:34)
[2022-10-16] MEDS: INSULIN ASPART (NovoLOG) 100 UNIT/ML VIAL SQ SCH ×2 (08:34→12:04)
[2022-10-16] MEDS ORDERED: ASPIRIN 81 MG PO SCH (09:00)
[2022-10-16] MEDS ORDERED: ATORVASTATIN 40 MG TAB PO SCH (09:00)
[2022-10-16] MEDS ORDERED: buPROPion XL 150 MG TAB.ER.24H PO SCH (09:00)
[2022-10-16 11:54] LABS: Glucose,Whole Blood 133 mg/dL (70-110)
== END 2022-10-16 13:00 ==
LOC: EC 12:21
DX: Z04.6 Encounter for general psychiatric examination, requested by authority (principal); E11.65 Type 2 diabetes mellitus with hyperglycemia; I10 Essential (primary) hypertension; E83.42 Hypomagnesemia; F32.A Depression, unspecified; R45.851 Suicidal ideations; I25.10 Atherosclerotic heart disease of native coronary artery without angina pectoris; J44.9 Chronic obstructive pulmonary disease, unspecified; K21.9 Gastro-esophageal reflux disease without esophagitis; F41.9 Anxiety disorder, unspecified; E78.5 Hyperlipidemia, unspecified; E07.9 Disorder of thyroid, unspecified; Z91.148 Patient's other noncompliance with medication regimen for other reason; Z20.822 Contact with and (suspected) exposure to COVID-19; Z79.4 Long term (current) use of insulin; Z79.890 Hormone replacement therapy; Z79.82 Long term (current) use of aspirin; Z79.899 Other long term (current) drug therapy; Z87.891 Personal history of nicotine dependence
CPT/HCPCS: 82075; 36415 ×2; 93005; 80053; 82009; 83735; 85025; 81001; 80306; 87635; 99285; 96374; 96361 ×5; G0480; J0360; 80320; 83036

== ENCOUNTER → 2023-01-29 | Outpatient (CLI) | payer MEDICARE ==
[2023-01-29 20:50] LABS: ALT 20 U/L (8-44); AST 27 U/L (13-35); Albumin 3.9 d/dL (3.8-4.9); Albumin/Globulin Ratio 1.26 Ratio (1.60-3.17); Alkaline Phosphatase 142 U/L (41-126); BUN/Creat Ratio 19.38 Ratio (12.00-20.00); Blood Urea Nitrogen 15.5 mg/dL (9.0-27.0); Calcium 9.3 mg/dL (8.7-10.3); Carbon Dioxide 24.4 mmol/L (21.6-31.8); Chloride 104 mmol/L (96-109); Chol/HDL Ratio 2.55 Ratio; Globulin 3.1 d/dL (1.6-3.3); Glucose 203 mg/dL (70-110); LDL Cholesterol,Calculated 89.6 mg/dL (0.0-131.0); Potassium 4.6 mmol/L (3.5-5.5); Sodium 141 mmol/L (135-145); T4, Free (Free Thyroxine) 1.17 ng/dL (0.80-1.80); Total Bilirubin 0.4 mg/dL (0.3-1.2); VLDL Calculation 19.22 mg/dL (5.00-40.00)
[2023-01-29 21:19] LABS: Basophils # (A) 0.06 X 10*3/uL (0.00-0.10); Eosinophils # (A) 0.15 X 10*3/uL (0.04-0.35); Eosinophils % (A) 2.4 %; HCT 41.5 % (37.2-46.3); HGB 13.2 d/dL (12.0-15.0); Lymphocytes % (A) 28.7 %; MCHC 31.8 d/dL (32.0-37.0); MCV 91.2 FL (80.0-97.0); Mean Platelet Volume 10.7 FL (9.5-12.2); Monocytes # (A) 0.45 X 10*3/uL (0.20-1.00); Monocytes % (A) 7.2 %; NRBC Per 100 WBC 0 X 10*3/uL (0.00-0.01); Neutrophils # (A) 3.81 X 10*3/uL (1.80-7.70); Neutrophils % (A) 60.5 %; Platelet Count 245 X 10*3/uL (140-440); RBC 4.55 X 10*6/uL (4.10-5.20); RDW 15.8 % (11.5-14.5); WBC 6.28 X 10*3/uL (4.50-10.00)
== END | disposition home or self-care (01) ==
LOC: LABWHC1 11:45
PROVIDERS: ATTEND Internal Medicine Critical Care Medicine
DX: E11.9 Type 2 diabetes mellitus without complications (principal); E78.5 Hyperlipidemia, unspecified; E03.9 Hypothyroidism, unspecified
CPT/HCPCS: 36415; 80053; 80061; 83036; 84439; 84443; 85025

== ENCOUNTER → 2023-08-09 | Outpatient (CLI) | payer MEDICARE ==
--- NOTE | 2023-08-09 23:35 | XR ---
EXAMINATION TYPE: XR pelvis AP view DATE OF EXAM: 08/09/2023 COMPARISON: None HISTORY: Urge, incontinence TECHNIQUE: AP pelvis FINDINGS: No acute fractures are evident. Left sacroiliac joint may be narrowed. Right sacroiliac isabel nt appears patent. There is a stimulator electronic device overlying the right iliac wing. A lateral iliac wing electronic device is present There is a left hip prosthesis and a right hip pin. There may be a foreign body or fixation device ov erlying the symphysis pubis. IMPRESSION: 1. No acute osseous abnormalities AP pelvis
== END | disposition home or self-care (01) ==
LOC: RADXRMAIN 16:36
PROVIDERS: ATTEND Urology
DX: N39.41 Urge incontinence (principal)
CPT/HCPCS: 72170

== ENCOUNTER → 2024-05-29 | Outpatient (CLI) | payer MEDICARE ==
[2024-05-30 03:42] LABS: ALT 22 U/L (8-44); AST 26 U/L (13-35); Albumin 3.7 g/dL (3.8-4.9); Albumin/Globulin Ratio 1.19 Ratio (1.60-3.17); Alkaline Phosphatase 78 U/L (41-126); Blood Urea Nitrogen 20.8 mg/dL (9.0-27.0); Carbon Dioxide 27.2 mmol/L (21.6-31.8); Chloride 103 mmol/L (96-109); Chol/HDL Ratio 3.07 Ratio; Globulin 3.1 g/dL (1.6-3.3); Glucose 74 mg/dL (70-110); LDL Cholesterol,Calculated 128.9 mg/dL (0.0-131.0); Potassium 4.3 mmol/L (3.5-5.5); Sodium 141 mmol/L (135-145); T4, Free (Free Thyroxine) 1.44 ng/dL (0.80-1.80); Total Bilirubin 0.3 mg/dL (0.3-1.2); Total Protein 6.8 g/dL (6.2-8.2)
[2024-05-30 05:10] LABS: Basophils # (A) 0.09 X 10*3/uL (0.00-0.10); Basophils % (A) 1.3 %; Eosinophils # (A) 0.15 X 10*3/uL (0.04-0.35); Eosinophils % (A) 2.2 %; HCT 42.8 % (37.2-46.3); HGB 13.6 g/dL (12.0-15.0); Lymphocytes # (A) 1.64 X 10*3/uL (0.90-5.00); Lymphocytes % (A) 23.9 %; MCH 28.9 pg (27.0-32.0); MCHC 31.8 g/dL (32.0-37.0); MCV 91.1 FL (80.0-97.0); Mean Platelet Volume 10.9 FL (9.5-12.2); Monocytes # (A) 0.44 X 10*3/uL (0.20-1.00); Monocytes % (A) 6.4 %; NRBC Per 100 WBC 0 X 10*3/uL (0.00-0.01); Neutrophils # (A) 4.51 X 10*3/uL (1.80-7.70); Neutrophils % (A) 65.9 %; Platelet Count 338 X 10*3/uL (140-440); RDW 14.3 % (11.5-14.5); WBC 6.85 X 10*3/uL (4.50-10.00)
[2024-05-30 06:46] LABS: Microalbumin Creatinine Ratio >1774 mg/g Cr (0-30)
== END | disposition home or self-care (01) ==
LOC: LABWHC1 15:40
PROVIDERS: ATTEND Internal Medicine Critical Care Medicine
DX: E78.5 Hyperlipidemia, unspecified (principal); E03.9 Hypothyroidism, unspecified; E11.9 Type 2 diabetes mellitus without complications
CPT/HCPCS: 36415; 80053; 80061; 82043; 82570; 83036; 84439; 84443; 85025